=== PATIENT | female | born 1950 | race Caucasian/White ===

== ENCOUNTER 2024-08-24 08:36 | Emergency (ER) | payer MEDICARE, SELFPAY ==
[2024-08-24] VITALS (19 sets, daily range): BP systolic 171–182; BP diastolic 77–92; PULSE 62–88; TEMP 36.8; O2SAT 84–100; BMI 48.5
--- NOTE | 2024-08-24 09:20 | ED_ITS ---
HPI HPI - General Adult General Chief complaint: Nausea/Vomiting/Diarrhea Stated complaint: FLU LIKE SYMPTOMS Time Seen by Provider: 08/24/24 08:42 Source: patient Mode of arrival: Wheelchair Limitations: no limitations History of Present Illness HPI narrative: Patient has been ill for the last 3 days with cough, nausea, dry heaving and weakness. She has had bodyaches. She tested positive for influenza at urgent care yesterday. 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 She requires assistance with moving around. Related Data Home Medications ?Medication ?Instructions ?Recorded ?Confirmed atorvastatin 10 mg tablet 10 mg PO DAILY 08/24/24 08/24/24 baclofen 10 mg tablet 10 mg PO BEDTIME 08/24/24 08/24/24 cholecalciferol (vitamin D3) 125 125 mcg PO DAILY 08/24/24 08/24/24 mcg (5,000 unit) capsule esomeprazole magnesium 20 mg 20 mg PO Q24H 08/24/24 08/24/24 capsule,delayed release hydrochlorothiazide 25 mg tablet 25 mg PO DAILY 08/24/24 08/24/24 losartan 25 mg tablet 25 mg PO DAILY 08/24/24 08/24/24 montelukast 10 mg tablet 10 mg PO DAILY 08/24/24 08/24/24 nortriptyline 25 mg capsule 25 mg PO BEDTIME 08/24/24 08/24/24 oxcarbazepine 150 mg tablet 150 mg PO BID 08/24/24 08/24/24 pregabalin 100 mg capsule 100 mg PO DAILY 08/24/24 08/24/24 thiamine HCl (vitamin B1) 100 mg 100 mg PO DAILY 08/24/24 08/24/24 tablet tramadol 50 mg tablet 50 mg PO Q6H PRN pain 08/24/24 08/24/24 Previous Rx's ?Medication ?Instructions ?Recorded albuterol sulfate 90 mcg/actuation 2 inh inhalation Q6H PRN shortness 08/24/24 aerosol inhaler of breath or wheezing #8.5 grams cefuroxime axetil 250 mg tablet 250 mg PO BID 10 days #20 tabs 08/24/24 doxycycline hyclate 100 mg capsule 100 mg PO BID 10 days #20 caps 08/24/24 Allergies Allergy/AdvReac Type Severity Reaction Status Date / Time duloxetine AdvReac Mild Nausea Verified 08/24/24 08:56 fluoxetine AdvReac Mild jittery Verified 08/24/24 08:56 hydrocodone AdvReac Mild Rash Verified 08/24/24 08:56 lisinopril AdvReac Mild Cough Verified 08/24/24 08:56 nabumetone AdvReac Mild itching Verified 08/24/24 08:56 Sulfa (Sulfonamide AdvReac Mild Rash Verified 08/24/24 08:56 Antibiotics) Opioid HPI Opioid Management Most Recent Opioid Data: Last Pain Scale 0 08/24/24 12:16 08/24/24 Last ED Pain Assessment 08/24/24 12:16 Last MAR Pain Assessment 08/24/24 11:37 Review of Systems ROS Narrative All other systems are reviewed and are negative other than what is mentioned in the HPI. Exam Narrative Exam Narrative: Patient does not appear in acute distress. Vitals are stable with no temperature elevation noted oxygen saturation is 98% on room air. Her blood pressure is slightly elevated 177/86. HEENT exam is normal to inspection. Neck supple. Lung sounds are clear to auscultation bilaterally. Heart has regular rate and rhythm. Abdomen protuberant, soft nontender. There is no fluid wave. Extremities warm and dry. Patient is of short stature. Constitutional Vital Signs, click to edit/add: Last Vital Signs Temp 98.3 F 08/24/24 08:50 Pulse 81 08/24/24 12:42 Resp 17 08/24/24 12:10 BP 182/77 H 08/24/24 12:01 Pulse Ox 98 08/24/24 13:18 O2 Del Method Room Air 08/24/24 13:18 O2 Flow Rate 2 08/24/24 12:42 Course Vital Signs Vital signs: Vital Signs Temperature 98.3 F 08/24/24 08:50 Pulse Rate 73 08/24/24 08:50 Respiratory Rate 18 08/24/24 08:50 Blood Pressure 177/86 H 08/24/24 08:50 Pulse Oximetry 98 08/24/24 08:50 Oxygen Delivery Method Room Air 08/24/24 08:50 Temperature 98.3 F 08/24/24 08:50 Pulse Rate 81 08/24/24 12:42 Respiratory Rate 17 08/24/24 12:10 Blood Pressure 182/77 H 08/24/24 12:01 Pulse Oximetry 98 08/24/24 13:18 Oxygen Delivery Method Room Air 08/24/24 13:18 Oxygen Delivery Flow Rate 2 08/24/24 12:42 Medical Decision Making MDM Narrative Medical decision making narrative: Patient's EKG is interpreted by me. Shows sinus rhythm with a rate of 78 bpm. There is right bundle branch block pattern and left axis deviation and no acute ST elevation. Patient presents with a chief complaint of shortness of breath and nausea. She was diagnosed with influenza yesterday. Chest x-ray questioned pneumonia versus failure. She had elevated BNP of 1090. She tested negative for COVID. CT scan of the chest ruled out pulmonary embolism and showed bilateral patchy pneumonia worse on the left. Patient was treated with I we Rocephin and oral doxycycline in the ED and is placed on Ceftin and doxycycline for 10 days at home. Early f ollow-up with PCP is advised and she is to return for worsening symptoms. Lab Data Labs: Lab Results 08/24/24 08/24/24 Range/Units 09:18 12:49 WBC 7.8 (4.0-11.0) 10^3/uL RBC 4.59 (4.20-5.40) 10^6/uL Hgb 13.8 (12.0-16.0) g/dL Hct 40.2 (36.0-48.0) % MCV 87.6 (81.0-99.0) fL MCH 30.1 (26.7-34.0) pg MCHC 34.3 (29.9-35.2) g/dL RDW 14.1 (11.0-15.0) % Plt Count 225 (150-450) 10^3/uL MPV 8.9 L (9.5-13.5) fL Neut % (Auto) 73.6 (43.0-75.0) % Lymph % (Auto) 14.1 L (20.5-60.0) % Cooper % (Auto) 12.2 H (1.7-12.0) % Eos % (Auto) 0.0 L (0.9-7.0) % Baso % (Auto) 0.0 L (0.2-2.0) % Neut # (Auto) 5.7 (1.4-6.5) 10^3/uL Lymph # (Auto) 1.1 L (1.2-3.8) 10^3/uL Cooper # (Auto) 1.0 H (0.3-0.8) 10^3/uL Eos # (Auto) 0.0 (0.0-0.7) 10^3/uL Baso # (Auto) 0.0 (0.0-0.1) 10^3/uL Abs Immat Gran (auto) 0.01 (0.00-0.03) 10^3/uL Imm/Tot Granulo (auto) 0.1 (0.0-0.5) % D-Dimer 0.25 (<=0.59) mg/L FEU Sodium 135 L (136-145) mmol/L Potassium 3.2 L (3.5-5.1) mmol/L Chloride 97 L (98-107) mmol/L Carbon Dioxide 32.1 H (21.0-32.0) mmol/L Anion Gap 9.1 BUN 20.0 H (7.0-18.0) mg/dL Creatinine 0.71 (0.55-1.02) mg/dL Est GFR ( Amer) >60 (>=60 mL/min/1.73m^2) Est GFR (Non-Af Amer) >60 (>=60 mL/min/1.73m^2) BUN/Creatinine Ratio 28.2 Glucose 120 H (74-106) mg/dL Calcium 9.3 (8.5-10.1) mg/dL Total Bilirubin 0.4 (0.2-1.0) mg/dL AST 20 (15-37) U/L ALT 21 (14-59) U/L Alkaline Phosphatase 93 (46-116) U/L Troponin I High Sens 27.2 (4.0-51.3) pg/mL NT-Pro-B Natriuret Pep 1090.0 H (<=900.0) pg/mL Total Protein 7.6 (6.4-8.2) g/dL Albumin 3.6 (3.4-5.0) g/dL Globulin 4.0 g/dL Albumin/Globulin Ratio 0.9 SARS-CoV-2 Ag (CV2AG) Negative (NEGATIVE) Discharge Plan Discharge Chief Complaint: Nausea/Vomiting/Diarrhea Clinical Impression: Pneumonia Qualifiers: Pneumonia type: due to unspecified organism Laterality: bilateral Lung location: lower lobe of lung Qualified Code(s): J18.9 - Pneumonia, unspecified organism Patient Disposition: Home, Self-Care Time of Disposition Decision: 13:06 Condition: Good Mode of Transportation: Private Vehicle Prescriptions / Home Meds: New albuterol sulfate 90 mcg/actuation HFA aerosol inhaler 2 inh inhalation Q6H PRN (Reason: shortness of breath or wheezing) Qty: 8.5 0RF doxycycline hyclate 100 mg capsule 100 mg PO BID 10 Days Qty: 20 0RF cefuroxime axetil 250 mg tablet 250 mg PO BID 10 Days Qty: 20 0RF No Action atorvastatin 10 mg tablet 10 mg PO DAILY baclofen 10 mg tablet 10 mg PO BEDTIME cholecalciferol (vitamin D3) 125 mcg (5,000 unit) capsule 125 mcg PO DAILY esomeprazole magnesium 20 mg capsule,delayed release(DR/EC) 20 mg PO Q24H hydrochlorothiazide 25 mg tablet 25 mg PO DAILY losartan 25 mg tablet 25 mg PO DAILY montelukast 10 mg tablet 10 mg PO DAILY nortriptyline 25 mg capsule 25 mg PO BEDTIME oxcarbazepine 150 mg tablet 150 mg PO BID pregabalin 100 mg capsule 100 mg PO DAILY tramadol 50 mg tablet 50 mg PO Q6H PRN (Reason: pain) thiamine HCl (vitamin B1) 100 mg tablet 100 mg PO DAILY Print Language: Greenlandic Instructions: Community Acquired Pneumonia (DC) Referrals: JOSEPH KIM [Primary Care Provider] - 1 week Discharge Date/Time: 08/24/24 13:20
[2024-08-24] MEDS: 0.9 % SODIUM CHLORIDE 1,000 ML 1000 ML IV (09:23)
[2024-08-24] MEDS: ONDANSETRON PF 4 MG/2 ML VIAL IV (09:23)
[2024-08-24 09:34] LABS: Hematocrit 40.2 % (36.0-48.0); Hemoglobin 13.8 g/dL (12.0-16.0); Immature Granulocytes Abs Auto 0.01 10^3/uL (0.00-0.03); Immature Granulocytes Pct Auto 0.1 % (0.0-0.5); Lymphocytes Absolute Auto 1.1 10^3/uL (1.2-3.8); Lymphocytes Percent Auto 14.1 % (20.5-60.0); Mean Corpuscular HGB Conc 34.3 g/dL (29.9-35.2); Mean Corpuscular Hemoglobin 30.1 pg (26.7-34.0); Mean Corpuscular Volume 87.6 fL (81.0-99.0); Mean Platelet Volume 8.9 fL (9.5-13.5); Monocytes Percent Auto 12.2 % (1.7-12.0); Neutrophils Absolute Auto 5.7 10^3/uL (1.4-6.5); Neutrophils Percent Auto 73.6 % (43.0-75.0); Platelet Count 225 10^3/uL (150-450); Red Blood Count 4.59 10^6/uL (4.20-5.40); Red Cell Distribution Width 14.1 % (11.0-15.0); White Blood Count 7.8 10^3/uL (4.0-11.0)
[2024-08-24 10:02] LABS: Alanine Aminotransferase 21 U/L (14-59); Albumin Globulin Ratio 0.9; Albumin Level 3.6 g/dL (3.4-5.0); Alkaline Phosphatase 93 U/L (46-116); Anion Gap 9.1; Aspartate Amino Transferase 20 U/L (15-37); BUN Creatinine Ratio 28.2; Bilirubin Total 0.4 mg/dL (0.2-1.0); Calcium 9.3 mg/dL (8.5-10.1); Carbon Dioxide 32.1 mmol/L (21.0-32.0); Chloride 97 mmol/L (98-107); Estimated GFR (African America >60 (>=60 mL/min/1.73m^2); Estimated GFR (Non-African Ame >60 (>=60 mL/min/1.73m^2); Glucose 120 mg/dL (74-106); Potassium 3.2 mmol/L (3.5-5.1); Sodium 135 mmol/L (136-145); Total Protein 7.6 g/dL (6.4-8.2)
--- NOTE | 2024-08-24 10:14 | ECG_ITS ---
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 Measurements Intervals [place] Rate: 78 P: 44 [place]: 174 QRS: -42 QRSD: 152 T: -4 QT: 428 QTc: 461 Interpretive Statements 1100 Sinus rhythm 2450 Right bundle branch block 7200 Abnormal left axis deviation 9150 abnormal ECG Compared to ECG 05/27/2018 17:34:56 Right bundle-branch block now present Left-axis deviation now present Electronically Signed On 08-24-2024 13:16:08 EDT by ESME PULLIAM M.D.
[2024-08-24 10:44] LABS: D Dimer 0.25 mg/L FEU (<=0.59)
[2024-08-24 10:45] LABS: Troponin I High Sensitivity 27.2 pg/mL (4.0-51.3)
[2024-08-24] MEDS: FENTANYL CITRATE/PF 100 MCG/2 ML VIAL 25 MCG IV (11:37)
--- NOTE | 2024-08-24 11:57 | PC.NURSE ---
Pt recently given Fentanyl IV for pain -- SpO2 dropped to 84% on RA with good waveform. Placed on 2L NC, SpO2 improved to 100%.
[2024-08-24] MEDS: CEFTRIAXONE 1,000 MG in 0.9 % SODIUM CHLORIDE 50 ML 100 MG IV (12:43)
[2024-08-24] MEDS: DOXYCYCLINE MONOHYDRATE 100 MG CAPSULE PO (12:45)
[2024-08-24 13:08] LABS: Internal Control Within Normal Limits; SARS-CoV-2 Ag NEGATIVE (NEGATIVE)
== END 2024-08-24 13:20 | disposition home or self-care (01) ==
PROVIDERS: Emergency Provider Emergency Medicine; PCP Family Medicine
DX: J11.00 Influenza due to unidentified influenza virus with unspecified type of pneumonia (principal); R06.02 Shortness of breath; R11.0 Nausea; Z99.3 Dependence on wheelchair; R62.52 Short stature (child)
CPT/HCPCS: 36415; 71045; 71250; 80053; 83880; 84484; 85025; 85378; 87811; 93005; 94640; 96365; 96375; 99285; J0696; J2405; J3010

== ENCOUNTER 2024-08-26 10:25 | Inpatient (IN) | payer MEDICARE, SELFPAY ==
[2024-08-26] VITALS (15 sets, daily range): BP systolic 151–184; BP diastolic 71–95; PULSE 55–97; TEMP 36.6–36.9; O2SAT 90–100; BMI 48.5; BMI 46.7
--- OUTSIDE RECORDS SUMMARY | 2024-08-26 10:42 | XMS_ITS | CCD ---
Author Organization [facility] Care Team Providers Care Medical And Scientific Illustrator Name Role Phone ALYSSA TOMAS Admitting Unavailable ALYSSA TOMAS Primary Care Unavailable SHANELLE SWAN Consulting Unavailable AMADEO ARANDA Attending Unavailable AMADEO ARANDA Consulting Unavailable ALYSSA TOMAS Consulting Unavailable ENA DWYER Consulting Unavailable HEIDY GREEN Consulting Unavailable AGSIM TAPIA Consulting Unavailable LINDA PUCKETT Consulting Unavailable Shanelle Hernandez Consulting Unavailable Paxton Cuellar Unavailable Shun Rodgers Unavailable Radha Rajan CNP Unavailable LESLIE DEL CID Attending Unavailable RADHA RAJAN Referring Unavailable Yulia Moyer MD Primary Care Provider Radha Rajan NP Unavailable [phone] Yulia Moyer MD Primary Care Provider Yulia Moyer MD Primary Care Provider DOMINGO LAURENT Attending Unavailable RADHA RAJAN Attending Unavailable RADHA RAJAN A Attending Unavailable DOMINGO LAURENT Attending Unavailable CECILIA RAJANZABETH A Referring Unavailable DOMINGO LAURENT Attending Unavailable CECILIA RAJANZABETH A Attending Unavailable DOMINGO LAURENT Attending Unavailable CECILIA RAJANZABETH A Referring Unavailable DOMINGO LAURENT Attending Unavailable TYREE RAJANBETH A Attending Unavailable Allergies Allergy Classification Reported Allergen(s) Allergy Type Date of Onset Reaction(s) Facility (1 source) Sulfamethoxazole / Trimethoprim Drug Allergy [facility] (20 sources) FLUoxetine Drug Allergy 01-28-20 17 Other: See Comments [facility] (13 sources) Lisinopril Drug Allergy 11-28-19 22 Cough [facility] (12 sources) nabumetone Drug Allergy 11-28-[address] [facility] (20 sources) Sulfamethoxazole / Trimethoprim Drug Allergy 04-01-20 22 Rash [facility] (20 sources) DULoxetine Drug Allergy 04-01-20 GI Upset, GI intolerance [facility] (20 sources) Acetaminophen / HYDROcodone Drug Allergy 02-21-20 23 Other [facility] (20 sources) DULoxetine Drug Allergy 09-28-19 23 [facility] Work Phone: (20 sources) Lisinopril Allergy to substance 09-28-19 [facility] (20 sources) nabumetone Drug Allergy 09-28-19 [facility] (1 source) Sulfamethoxazole Drug Allergy 11-28-[address] [facility] (1 source) Trimethoprim Drug Allergy 11-28-19 [facility] Medications Current Medications Medication Drug Class(es) Dates Sig (Normalized) Sig (Original) atorvastatin 10 mg oral tablet (20 sources) HMG-CoA Reductase Inhibitor Start: 08-23-2024 take 1 tablet by mouth once daily Atorvastatin 10 mg tablet Active 10 MG PO Daily August 23, 2024 12:00am Start: 08-25-2023 End: 05-18-2024 take 1 tablet by mouth once daily atorvastatin (Lipitor) 10 MG tablet Indications: Mixed hyperlipidemia (CMS/HCC) Take 1 tablet (10 mg) by mouth 1 (one) time each day at the same time 90 tablet 2 05/18/2024 Active atorvastatin (Li pitor) 10 MG tablet 1 (one) time each day at the same time. 0 Active Comment on above: Take 10 mg by mouth once daily. baclofen 10 mg oral tablet (12 sources) gamma-Aminobutyric Acid-ergic Agonist Start: 08-23-2024 take 1 tablet by mouth once daily at bedtime Baclofen 10 mg tablet Active 10 MG PO Daily at bedtime August 23, 2024 12:00am Baclofen 10 MG ( Prior Auth: Rx Ref#:[id number]) Oral for 90 Active Calcium (2 sources) Phosphate Binder, Calcium take 1 tablet by mouth twice daily at mealtime Calcium 600 MG 1 tablet with meals Orally Twice a day Active calcium carbonate 1500 mg oral tablet (20 sources) calcium carbonat e 1500 (600 Ca) MG tablet every 12 (twelve) hours. Active take 1 tablet by mouth twice michelle ly calcium carbonate (CALCIUM 600) 600 mg calcium (1,500 mg) tab Take 600 mg by mouth twice daily. 0 Active take 1 tablet by steve th every twelve hours Calcium 600 MG 1 tablet with meals Orall y Twice a day Active Comment on above: Take 600 mg by mouth twice daily. Calcium Carbonate-Vit D3-Min (Calcium 600 + Minerals) 600 mg calcium- 200 unit tablet (1 source) Start: 08-24-19 take 1 tablet by mouth once Calcium Carbonate-Vit D3-Min (Calcium 600 + Minerals) 600 mg calcium- 200 unit tablet Active TAB PO August 23, 2024 12:00am cholecalciferol 0.125 mg oral capsule (20 sources) Vitamin D Start: 08-24-19 take 1 capsule by mouth once daily Cholecalciferol (Vitamin D3) 125 mcg (5,000 unit) capsule Active 125 MCG PO Daily August 23, 2024 12:00am cholecalciferol (D3-5) 5,000 Units tablet 1 (one) time each day at the same time. Active dexamethasone 2 mg oral tablet (5 sources) Corticosteroid Start: 08-23-2024 take 1 tablet by mouth once daily Dexamethasone 2 mg tablet Active 2 MG PO Daily August 23, 2024 12:00am Start: 05-12-2024 End: 05-12-2024 dexAMETHasone sod phos (Deca dron) injection 4 mg Start: 05-12-2024 End: 05-12-2024 4 mg (1 mL), Injection, Once , On Fri05/12/24 at 1530, For 1 dose Start: 03-18-2024 End: 03-17-2024 dexAMETHasone sod phos (Deca dron) injection 4 mg Start: 03-18-2024 End: 03-17-2024 4 mg (1 mL), Injection, Once , On Alicia 03/18/24 at 1630, For 1 dose esomeprazole 20 mg delayed release oral capsule (20 sources) Proton Pump Inhibitor Start: 07-02-2023 End: 07-01-2024 take 1 capsule by mouth before mealtime esomeprazole (NexIUM) [address] capsule Indications: Gastroesophageal reflux disease, unspecified whether esophagitis present TAKE 1 CAPSULE BY MOUTH IN THE MORNING BEFORE A MEAL DO NOT OPEN CAPSULE 90 capsule 3 12/01/2023 Active take 1 capsule by mouth once michelle ly esomeprazole (NEXIUM) 20 mg capsule Take 20 mg by mouth once daily. 0 Active Esomeprazole Mag nesium 40 MG (Prior Auth: Rx Ref#:[id number]) Oral for 90 Active Comment on above: Take 20 mg by mouth once daily. Esomeprazole Magnesium 20 mg capsule,delayed release(DR/EC) (1 source) Start: take 1 capsule by mouth once daily Esomeprazole Magnesium 20 mg capsule,delayed release(DR/EC) Active 20 MG PO Daily August 23, 2024 12:00am fexofenadine hydrochloride 180 mg oral tablet (20 sources) Histamine-1 Receptor Antagonist fexofenadine (Leah Allergy) 180 MG tablet 1 (one) time each day at the same time. Active Leah Active Comment on above: Take 180 mg by mouth once daily. furosemide 20 mg oral tablet (11 sources) Loop Diuretic Furosemide 20 MG (Prior Auth: Rx Ref#:[id number]) Oral for 30 Active gabapentin 300 mg oral capsule (11 sources) Anti-epileptic Agent Start: 03-27-2021 take 1 capsule by mouth three times daily Gabapentin 300 MG 1 capsule Orally three times daily for 30 day(s) Mar, Active gabapentin (NEUR ONTIN) 300 mg/6 mL (6 mL) oral solution Take 300 mg by mouth. 0 Active take 1 capsule by mouth twice da kaylin Gabapentin 300 MG 1 capsule Orally twice daily for 90 days Active Comment on above: Take 300 mg by mouth . glucosamine 750 mg oral tablet (11 sources) Glucosamine 750 MG Orally Active hydroCHLOROthiazide 25 mg oral tablet (20 sources) Thiazide Diuretic Start: 2024 take 1 tablet by mouth once daily in the morning Hydrochlorothiazide 25 mg tablet Active 25 MG PO Every morning August 23, 2024 12:00am Start: 04-07-2023 End: 03-11-2024 take 1 tablet by mouth in the morning hydroCHLOROthiazide (HYDRODiuril) 25 MG tablet Indications: Hypertension, unspecified type (CMS/HCC) TAKE 1 TABLET BY MOUTH IN THE MORNING 90 tablet 3 03/11/2024 Active take 1 tablet by steve th once daily hydroCHLOROthiazide (HYDRODIURIL, ESIDRIX) 25 mg tablet Take 25 mg by mouth once daily. 0 Active Comment on above: Take 25 mg by mouth once daily. losartan potassium 25 mg oral tablet (20 sources) Angiotensin 2 Receptor Paola Start: 08-23-2024 take 1 tablet by mouth once daily Losartan 25 mg tablet Active 25 MG PO Daily August 23, 2024 12:00am Start: 12-24-2022 End: 12-19-2023 take 1 tablet by mouth once daily losartan (Cozaar) 25 MG tablet Indications: Hypertension, unspecified type (CMS/HCC) TAKE 1 TABLET BY MOUTH DAILY AT THE SAME TIME EACH DAY 90 tablet 3 12/01/2023 Active take 1 tablet by steve th once daily losartan (COZAAR) 25 mg tablet Take 25 mg by mouth once daily. 0 Active Comment on above: Take 25 mg by mouth once daily. montelukast 10 mg oral tablet (20 sources) Leukotriene Receptor Antagonist Start: take 1 tablet by mouth once daily Montelukast 10 mg tablet Active 10 MG PO Daily August 23, 2024 12:00am Start: 04-07-2023 End: 04-15-2024 take 1 tablet by mouth in the morning montelukast (Singulair) 10 MG tablet Indications: Rhinitis, unspecified type TAKE 1 TABLET BY MOUTH IN THE MORNING 90 tablet 3 04/15/2024 Active take 1 tablet by steve th once daily at bedtime montelukast (SINGULAIR) 10 mg tablet Take 10 mg by mouth daily at bedtime. 0 Active Comment on above: Take 10 mg by mouth daily at bedtime. Multiple Vitamins-Minerals (Multivitamin Women) tablet (20 sources) Multiple Vitamin s-Minerals (Multivitamin Women) tablet 1 (one) time each day at the same time. Active Multiple Vitamin s-Minerals (Multivitamin Women) tablet 1 (one) time each day at the same time. 0 Active Multivitamin tablet (1 source) Start: 08-23-2024 take 1 tablet by mouth once daily Multivitamin tablet Active 1 TAB PO Daily August 23, 2024 12:00am Multivitamins - (11 sources) Start: 07-06-2017 Multivitamins - Orally Jul, Active nortriptyline 10 mg oral capsule (20 sources) Tricyclic Antidepressant Start: 08-23-2024 take 1 capsule by mouth once daily Nortriptyline 10 mg capsule Active 25 MG PO Daily August 23, 2024 12:00am Start: 03-18-2024 End: 04-17-2024 take 1 capsule by mouth at bedtime nortriptyline (Pamelor) 25 MG capsule Indications: Carpal tunnel syndrome of left wrist TAKE 1 CAPSULE BY MOUTH AT BEDTIME. 90 capsule 3 04/12/2024 Active Start: 02-23-2024 End: 03-24-2024 take 2 capsules by mouth at bedtime nortriptyline (Pamelor) 10 MG capsule Indications: Bilateral carpal tunnel syndrome Take 2 capsules (20 mg) by mouth at bedtime 60 capsule 11 02/23/2024 03/17/2024 Discontinued Start: 02-06-2024 take 1 capsule by mo uth at bedtime nortriptyline (Pamelor) 10 MG capsule Indications: Bilateral carpal tunnel syndrome TAKE 1 CAPSULE BY MOUTH AT BEDTIME 90 capsule 3 02/06/2024 Active Start: 01-14-2024 End: 01-13-2025 take 1 capsule by mouth at bedtime nortriptyline (Pamelor) 10 MG capsule Indications: Bilateral carpal tunnel syndrome TAKE 1 CAPSULE BY MOUTH AT BEDTIME 90 capsule 3 02/06/2024 Active OXcarbazepine 150 mg oral tablet (20 sources) Anti-epileptic Agent Start: 12-02-2023 End: 12-01-2024 take 1 tablet by mouth once daily Oxcarbazepine 150 mg tablet Active 150 MG PO Daily August 23, 2024 12:00am pregabalin 100 mg oral capsule (20 sources) Start: 11-26-2023 End: 09-26-2024 take 1 capsule by mouth once daily Pregabalin 100 mg capsule Active 100 MG PO Daily August 23, 2024 12:00am Start: 05-06-2023 End: 09-02-2023 take 1 capsule by mouth in the morning pregabalin (Lyrica) 100 MG capsule Indications: Paresthesia of skin Take 1 capsule (100 mg) by mouth in the morning for 60 doses. 30 capsule 1 07/04/2023 09/02/2023 Active Start: 11-27-2021 take 1 capsule by mo uth every twelve hours Lyrica 75 MG 1 capsule Orally Twice a day for 30 days 28 Adam, 2022 Active thiamine 100 mg oral tablet (9 sources) Start: 05-13-2024 End: 05-13-2025 take 1 tablet by mouth once daily Thiamine Hcl (Vitamin B1) 100 mg tablet Active 100 MG PO Daily August 23, 2024 12:00am traMADol hydrochloride 50 mg oral tablet (20 sources) Opioid Agonist Start: 08-23-2024 take 1 tablet by mouth once daily Tramadol 50 mg tablet Active 50 MG PO Daily August 23, 2024 12:00am Start: 01-16-2024 End: 08-18-2024 take 1 tablet by mouth every six hours for pain traMADol (Ultram) 50 MG tablet Indications: Other chronic pain , Other spondylosis with radiculopathy, lumbar region Take 1 tablet (50 mg) by mouth every 6 (six) hours if needed for severe pain 120 tablet 07/19/2024 08/18/2024 Active Start: 06-23-2023 End: 07-23-2023 take 1 tablet by mouth every six hours for pain traMADol (Ultram) 50 MG tablet Indications: Other spondylosis with radiculopathy, lumbar region , Other chronic pain Take 1 tablet (50 mg) by mouth every 6 (six) hours if needed for severe pain 120 tablet 0 06/23/2023 07/23/2023 Active Start: 03-15-2021 take 1 tablet by steve th twice daily as needed traMADol HCl 50 MG 1 tablet as needed Orally up to twice a day for 30 days Mar, Active take 1 tablet by steve th every six hours as needed traMADol (ULTRAM) 50 mg tablet Take 50 mg by mouth every 6 hours as needed for pain. 0 Active Comment on above: Take 50 mg by mouth every 6 hours as needed for pain. vitamin b12 5 mg oral capsule (20 sources) Vitamin B12 Start: 08-23-2024 take 1 capsule by mouth once daily Cyanocobalamin (Vitamin B-12) 5,000 mcg capsule Active 5000 MCG PO Daily August 23, 2024 12:00am take 1 tablet by mouth once bonny y Cyanocobalamin (VITAMIN B-12 PO) Take 1 tablet by mouth 1 (one) time each day. Active take 1 tablet by mouth once bonny y Cyanocobalamin (VITAMIN B-12 PO) Take 1 tablet by mouth 1 (one) time each day. 0 Active Vitamin D 2000 UNIT (11 sources) take 1 tablet by steve th once daily Vitamin D 2000 UNIT 1 tablet Orally Once a day Active Completed/Discontinued Medications Medication Drug Class(es) Dates Sig (Normalized) Sig (Original) bupivacaine hydrochloride 5 mg/ml injectable solution (4 sources) Amide Local Anesthetic Start: 05-12-2024 End: 05-12-2024 bupivacaine (Marcaine) 0.5 % injection 5 mg Start: 05-12-2024 End: 05-12-2024 5 mg (1 mL), Injection, Once , On Fri05/12/24 at 1530, For 1 dose Start: 03-18-2024 End: 03-17-2024 bupivacaine (Marcaine) 0.5 % injection 5 mg Start: 03-18-2024 End: 03-17-2024 5 mg (1 mL), Injection, Once , On Fri03/18/24 at 1630, For 1 dose cholecalciferol, vitamin D3, (VITAMIN D3 ORAL) (1 source) cholecalciferol, vitamin D3, (VITAMIN D3 ORAL) Take by mouth. 0 Active Comment on above: Take by mouth. mecobalamin (1 source) take 1 capsule by mouth once daily mecobalamin (B12 ACTIVE ORAL) Take 1 capsule by mouth once daily. 0 Active Comment on above: Take 1 capsule by mo [facility] once daily. Nzzbtcaophwsz-Kmcexmpw-Jjc ein (MULTIVITAMIN 50 PLUS) tab (1 source) Multivitamins-Mi nerals-Elizabeth tein (MULTIVITAMIN 50 PLUS) tab Take 1 tablet by mouth once daily. 0 Active Comment on above: Take 1 tablet by steve th once daily. Problems Active Problems Problem Classification Problem Date Documented Date Episodic/Chronic Abdominal hernia (1 source) Umbilical hernia without obstruction or gangrene; Translations: [UMBILICAL HERNIA W/O OBST/GANGRENE] Onset: 0 Episodic Biliary tract disease (20 sources) Biliary dyskinesia; Translations: [Other specified diseases of gallbladder] Onset: 9 Resolved: 4 12-19-2022 Episodic Chronic obstructive pulmonary disease and bronchiectasis (20 sources) Simple chronic bronchitis; Translations: [Simple chronic bronchitis] Onset: 8 12-19-2022 Chronic Diabetes mellitus without complication (1 source) Prediabetes; Translations: [PREDIABETES] Onset: 0 Diseases of white blood cells (20 sources) Leukocytosis; Translations: [Elevated white blood cell count, unspecified] Onset: 3 09-27-2022 Chronic Disorders of lipid metabolism (20 sources) Hyperlipidemia; Translations: [Hyperlipidemia, unspecified] Onset: 8 09-27-2022 Chronic Disorders of lipid metabolism (1 source) Pure hypercholesterolemia, unspecified; Translations: [PURE HYPERCHOLESTEROLEMIA UNSPEC] Onset: 0 Diverticulosis and diverticulitis (20 sources) Diverticular disease; Translations: [Diverticulosis of intestine, part unspecified, without perforation or abscess without bleeding] Onset: 3 09-27-2022 Chronic Esophageal disorders (20 sources) Gastro-esophageal reflux disease without esophagitis; Translations: [Gastroesophageal reflux disease] Onset: 0 09-27-2022 Chronic Essential hypertension (20 sources) Essential (primary) hypertension; Translations: [Hypertensive disorder] Onset: 8 09-27-2022 Chronic Fluid and electrolyte disorders (2 sources) Hypo-osmolality and hyponatremia; Translations: [Hypokalemia] Onset: 0 Episodic Genitourinary congenital anomalies (1 source) Congenital uterine anomaly; 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] 08-23-2024 Chronic Heart valve disorders (20 sources) Aortic valve stenosis; Translations: [Nonrheumatic aortic (valve) stenosis] Onset: 3 09-27-2022 Chronic Immunizations and screening for infectious disease (3 sources) Contact with and (suspected) exposure to other viral communicable diseases; Translations: [Patient encounter status] Onset: 0 2024 Episodic Mood disorders (20 sources) Recurrent major depressive episodes, mild ; Translations: [Major depressive disorder, recurrent, mild] Onset: 8 Resolved: 3 12-19-2022 Chronic Nausea and vomiting (1 source) Nausea with vomiting, unspecified; Translations: [Nausea with vomiting] 08-23-2024 Episodic Nausea and vomiting (2 sources) Vomiting, unspecified; Translations: [VOMITING UNSPECIFIED] Onset: 0 Nutritional deficiencies (1 source) Vitamin D deficiency; Translations: [Vitamin D deficiency, unspecified] 08-23-2024 Chronic Osteoarthritis (20 sources) Localized, primary osteoarthritis of the shoulder region; Translations: [Primary osteoarthritis, unspecified shoulder] Onset: 2 12-19-2022 Chronic Osteoporosis (20 sources) Senile osteoporosis; Translations: [Age-related osteoporosis without current pathological fracture] Onset: 9 12-19-2022 Chronic Other acquired deformities (7 sources) Scoliosis of lumbar spine; Translations: [Other forms of scoliosis, lumbar region] Chronic Other acquired deformities (1 source) Other forms of scoliosis, lumbar region Onset: 1 Resolved: 1 Chronic Other acquired deformities (20 sources) Scoliosis deformity of spine; Translations: [Scoliosis, unspecified] Onset: 3 09-27-2022 Chronic Other acquired deformities (1 source) Other secondary scoliosis, lumbar region; Translations: [Scoliosis of lumbar region due to degenerative disease of spine in adult] 08-23-2024 Chronic Other aftercare (1 source) Other predatory animal exterminator (current) drug therapy; Translations: [OTH [facility] CURRENT DRUG THERAPY] Onset: 0 Episodic Other and ill-defined heart disease (20 sources) Ventricular hypertrophy ; Translations: [Cardiomegaly] Onset: 3 09-27-2022 Chronic Other and ill-defined heart disease (20 sources) Cardiomegaly; Translations: [Cardiomegaly] Onset: 2 12-19-2022 Chronic Other bone disease and musculoskeletal deformities (20 sources) Osteopenia; Translations: [Other specified disorders of bone density and structure, unspecified site] Onset: 3 09-27-2022 Episodic Other connective tissue disease (1 source) Presence of right artificial knee joint; Translations: [PRESENCE RT ARTIFICIAL KNEE JOINT] Onset: 0 Chronic Other connective tissue disease (11 sources) Trochanteric bursitis; Translations: [Trochanteric bursitis, unspecified hip] Episodic Other connective tissue disease (1 source) Bursitis of hip; Translations: [Trochanteric bursitis, unspecified hip] 08-23-2024 Episodic Other lower respiratory disease (20 sources) Fibrosis of lung; Translations: [Pulmonary fibrosis, unspecified] Onset: 1 12-19-2022 Chronic Other nervous system disorders (7 sources) Other chronic pain; Translations: [OTHER CHRONIC PAIN] Onset: 0 Resolved: 2 Chronic Other nervous system disorders (20 sources) Chronic pain; Translations: [Other chronic pain] Onset: 3 09-27-2022 Chronic Other nervous system disorders (20 sources) Difficulty walking; Translations: [Difficulty in walking, not elsewhere classified] Onset: 3 09-27-2022 Chronic Other nervous system disorders (20 sources) Carpal tunnel syndrome of left wrist; Translations: [Carpal tunnel syndrome, left upper limb] Onset: 4 11-10-2023 Chronic Other nervous system disorders (20 sources) Bilateral carpal tunnel syndrome; Translations: [Carpal tunnel syndrome, bilateral upper limbs] Onset: 4 01-15-2024 Chronic Other non-traumatic joint disorders (1 source) Pain in right hip; Translations: [PAIN IN RIGHT HIP] Onset: 0 Episodic Other non-traumatic joint disorders (8 sources) Pain in right hip joint; Translations: [Pain in right hip] Onset: 3 09-27-2022 Episodic Other nutritional; endocrine; and metabolic disorders (1 source) Body mass index (BMI) 45.0-49.9, adult; Translations: [BODY MASS INDEX BMI 45.0-49.9 ADULT] Onset: 0 Chronic Other nutritional; endocrine; and metabolic disorders (1 source) Morbid (severe) obesity due to excess calories; Translations: [MORBID SEVERE OBES D/T EXCESS JASMYN] Onset: 0 Chronic Other nutritional; endocrine; and metabolic disorders (20 sources) Morbid obesity; Translations: [Morbid (severe) obesity due to excess calories] Onset: 3 09-27-2022 Chronic Other nutritional; endocrine; and metabolic disorders (20 sources) Body mass index 40+ - severely obese; Translations: [Body mass index (BMI) 45.0-49.9, adult] Onset: 9 12-19-2022 Chronic Other screening for suspected conditions (not mental disorders or infectious disease) (2 sources) Patient encounter status; Translations: [Encounter for screening mammogram for malignant neoplasm of breast] 2024 Episodic Other upper respiratory disease (20 sources) Rhinitis; Translations: [Chronic rhinitis] Onset: 3 09-27-2022 Chronic Other upper respiratory disease (1 source) Seasonal allergic rhinitis; Translations: [Other seasonal allergic rhinitis] 08-23-2024 Chronic Peripheral and visceral atherosclerosis (20 sources) Atherosclerosis of aorta; Translations: [Atherosclerosis of aorta] Onset: 1 12-19-2022 Chronic Pneumonia (except that caused by tuberculosis or sexually transmitted disease) (1 source) Pneumonia, unspecified organism; Translations: [PNEUMONIA UNSPECIFIED ORGANISM] Onset: 0 Episodic Prolapse of female genital organs (20 sources) Uterovaginal prolapse; Translations: [Uterovaginal prolapse, unspecified] Onset: 8 12-19-2022 Chronic Residual codes; unclassified (1 source) Acquired absence of other specified parts of digestive tract; Translations: [ACQ ABSENCE OTH PART DIGESTV TRACT] Onset: 0 Episodic Screening and history of mental health and substance abuse codes (1 source) Personal history of nicotine dependence; Translations: [PERSONAL HISTORY OF NICOTINE DEPEND] Onset: 0 Episodic Spondylosis; intervertebral disc disorders; other back problems (20 sources) Lumbosacral spondylosis without myelopathy; Translations: [Other spondylosis with radiculopathy, lumbar region] Onset: 1 Resolved: 2 Chronic Spondylosis; intervertebral disc disorders; other back problems (8 sources) Spinal stenosis, site unspecified; Translations: [Spinal stenosis, lumbar region without neurogenic claudication] Onset: 1 Resolved: 2 Episodic Substance-related disorders (12 sources) Continuous opioid dependence; Translations: [Opioid use, unspecified, uncomplicated] 08-23-2024 Episodic Unclassified (1 source) CYCLICL VOMTNG SYN UNRELTD MIGRAINE; Translations: [CYCLICL VOMTNG SYN UNRELTD MIGRAINE] Onset: 0 Past or Other Problems Problem Classification Problem Date Documented Date Episodic/Chronic Calculus of urinary tract (10 sources) Kidney stone; Translations: [Calculus of kidney] Onset: 09-27-2022 09-27-2022 Episodic Diabetes mellitus with complications (20 sources) Hyperglycemia due to type 2 diabetes mellitus; Translations: [Type 2 diabetes mellitus with hyperglycemia] Onset: 02-06-2018 Resolved: 12-24-2022 12-24-2022 Chronic Diabetes mellitus without complication (20 sources) Impaired fasting glycemia; Translations: [Impaired fasting glucose] Onset: 09-27-2022 09-27-2022 Episodic Mood disorders (20 sources) Mood disorders Onset: 01-31-2023 01-31-2023 Other circulatory disease (20 sources) History of cerebrovascular accident without residual deficits; Translations: [Personal history of transient ischemic attack (TIA), and cerebral infarction without residual deficits] Onset: 04-13-2021 Resolved: 12-24-2022 12-24-2022 Episodic Other nervous system disorders (20 sources) Paresthesia; Translations: [Paresthesia of skin] Onset: 09-27-2022 07-04-2023 Episodic Other nervous system disorders (20 sources) Abnormal gait; Translations: [Unspecified abnormalities of gait and mobility] Onset: 09-27-2022 09-27-2022 Episodic Other nervous system disorders (20 sources) Impaired cognition; Translations: [Other symptoms and signs involving cognitive functions and awareness] Onset: 04-13-2021 Resolved: 12-24-2022 12-24-2022 Episodic Other nervous system disorders (20 sources) Numbness of hand; Translations: [Anesthesia of skin] Onset: 11-10-2023 11-10-2023 Episodic Other non-traumatic joint disorders (20 sources) Pain in left knee; Translations: [Pain in joint, lower leg] Onset: 09-27-2022 09-27-2022 Episodic Other non-traumatic joint disorders (18 sources) Hip pain; Translations: [Pain in right hip] Onset: 09-27-2022 09-27-2022 Episodic Residual codes; unclassified (20 sources) Illness, unspecified; Translations: [Other ill-defined conditions] Onset: 09-27-2022 09-27-2022 Episodic Skin and subcutaneous tissue infections (20 sources) Cellulitis of umbilicus ; Translations: [Cellulitis of umbilicus] Onset: 07-21-2018 Resolved: 01-31-2023 01-31-2023 Episodic Results Test Name Value Interpretation Reference Range Facility BI MAMMOGRAM SCREENING TOMOS DEUCE PRICEon 04-14-2024 BI MAMMOGRAM SCREENING TOMOSYNTHESIS BILATERAL This is a summary report. The complete report is available in the patient's medical record. If you cannot access the medical record, please contact the sending organization for a detailed fax or copy. Examination: BI MAMMOGRAM SCREENING TOMOSYNTHESIS BILATERAL Clinical History: screening Technique: Screening digital mammography study of both breasts was performed with 2-D and 3-D tomosynthesis imaging. Study was compared to the prior exam dated 03/20/2023. Findings: There is no evidence of interval dominant spiculated mass, grouped microcalcifications, or skin thickening which would be suggestive of malignancy. Mild scattered benign-appearing calcifications noted bilaterally. Benign-appearing nodular density on the right posterolaterally similar to the prior study as well as prior reviewed study dated 10/12/2021. Axillary lymph nodes are noted bilaterally. IMPRESSION: Impression: No specific evidence of malignancy seen in either breast. BIRADS 2 - Benign DENSITY: The breasts are almost entirely fatty FOLLOW-UP: Routine Screening Mamm ELECTRONICALLY SIGNED BY: Jamil Qiu M.D. Normal Not Available CNOVon 04-01-2022 CNOV Office Visit (SPNMAV) SYLVIA MILLER ([id number]) 1950 F Date Time Provider Department 04/01/22 1:00 PM LESLIE DEL CID During your visit today, we recorded the following information about you: Weight Height 108.9 kg 1.524 m Leslie Del Cid DO 04/01/2022 2:58 PM Signed [facility] Low Back Pain - Chronic (> 12 weeks) Initial Exam SUBJECTIVE HISTORY OF PRESENT ILLNESS: Sylvia Miller is a 72 year old female who presents with a chief complaint of low back pain and is seen in consultation requested by Dr. Radha Rajan for an opinion regarding low back pain with radiation down back of legs, left side worse than right. Intermittent in nature. Worse when walking/standing. States has had for years but has gotten worse over past 1.5 years. My final recommendations will be communicated back to the requesting physician by way of shared medical record or letter via US mail. Other Issues Addressed at the Visit Today: None. Precipitating Event: None PAIN EVALUATION 04/01/2022 1257 Pain Level: 6 Pain Location: Back-Lower Description: Aching;Sharp;Radiati ng Duration Amount of Time: 1.5 Duration Units: Years Frequency: Intermittent Intervention/Comfort measure: Medication;Repositio n;Heat;Cold Pain Radiation: low back pain with radiation down back of legs, left leg to knee, right leg to ankle PREVIOUS TREATMENTS IN THE LAST SIX MONTHS Active conservative therapy in the last six months (see below) 1. Physical therapy: No 2. Home exercise program after PT:No 3. A physician supervised home exercise program (HEP): No 4. Windmill Mechanic: No 5. What are your limitations: Standing, walking Passive conservative therapy in the last six months (see below) 1. NSAIDS: None 2. Prescription pain medication: Gabapentin 300 mg - last dose this morning, Tramadol - last dose this AM 3. Acupuncture: No 4. Tens unit: No Aggravating Factors: Standing, Walking Alleviating Factors: Medications, Heat application, Cold application, Sitting Prior Therapy: Tramadol, ice, heat, gabapentin, TFESI X 3 in [facility] Litigation: No Workers' Compensation: No YELLOW AND BLUE FLAGS No-Neg Attitude; Back Pain is Disabling No-Avoiding Activity (for Fear of Pain) No-Depression or Anxiety Disorders No-Social Problems No-Substance Use Disorder No-Job Dissatisfaction No-Financial Disincentives Patient Entered Questionnaires Spine Questions 03/28/2022 Pain Location: Lower back Pain Duration: 1 to 5 years Pain over last 6 months: Every day or nearly every day in the past 6 months Symptoms from neck/cervical spine: No Employment Status: Retired Involved in law suit/legal claim: No Spine Red Flags 03/28/2022 Any type of cancer: No Unexplained fever: No Bowel or bladder disfunction: No Unintentional weight loss: No Osteoporosis: No PROMIS Score Percentiles Physical Health 03/28/2022 Physical Function Percentile 0 Sleep Percentile 12 Fatigue Percentile 14 Pain Interference Percentile 1 PROMIS SOCIAL ROLE SCORE 03/28/2022 Social Role Satisfaction Percentile 10 PROMIS Global Health Scale 03/28/2022 Physical Health Percentile 10 Mental Health Percentile 13 Percentiles provide an indication of how the patient's score ranks in relation to the general population. Higher percentile rankings indicate better function/quality of life. 50th percentile is the average of the general population and indicates half of respondents had a worse score. Depression Screening: PHQ-9 03/28/2022 Score 5 PHQ-9 Self Harm 03/28/2022 Question 9 Not at all PHQ-9 Self-Harm (Item 9) response options: 0 Not at all 1 Several days 2 More than half the days 3 Nearly every day PHQ-9 Levels: 0-4 No - mild depression 5-9 Mild depression 10-14 Moderate depression 15-19 Moderately severe depression 20-27 Severe depression There is no problem list on file for this patient. No past medical history on file. No past surgical history on file. No family history on file. ALLERGIES Allergen Reactions Bactrim [Sulfametho* Rash Cymbalta [Duloxetin* GI Upset Lisinopril Cough Prozac [Fluoxetine] Other: See Comments Makes patient jitter CURRENT MEDICATIONS: mecobalamin (B12 ACTIVE ORAL) Take 1 capsule by mouth once daily. gabapentin (NEURONTIN) 300 mg/6 mL (6 mL) oral solution Take 300 mg by mouth. traMADol (ULTRAM) 50 mg tablet Take 50 mg by mouth every 6 hours as needed for pain. atorvastatin (LIPITOR) 10 mg tablet Take 10 mg by mouth once daily. losartan (COZAAR) 25 mg tablet Take 25 mg by mouth once daily. hydroCHLOROthiazide (HYDRODIURIL, ESIDRIX) 25 mg tablet Take 25 mg by mouth once daily. montelukast (SINGULAIR) 10 mg tablet Take 10 mg by mouth daily at bedtime. esomeprazole (NEXIUM) 20 mg capsule Take 20 mg by mouth once daily. Multivitamins-M (more content not included)... Normal [facility] SCREENING MAMMOGRAM W/TYSON, BILATERAL*on 10-12-2021 SCREENING MAMMOGRAM W/TYSON, BILATERAL* COMPARISON: Dating back to September 22, 2020 and April 19, 2019 TECHNIQUE: 2D and 3D Tomosynthesis of the right and left breasts was performed. FINDINGS: Breast composition demonstrates almost entirely fat. Stable. Typically benign calcifications. No suspicious microcalcifications, asymmetry, architectural distortion or associated features are present. IMPRESSION: BI RADS 2 : BENIGN MAMMOGRAM Board Certified Radiologist. Accredited by the ACR and FDA. MAMMOGRAPHY IS VERY IMPORTANT TO YOUR HEALTH. THE CURRENT [place] [employer] GUIDELINES RECOMMENDS ANNUAL MAMMOGRAPHY BEGINNING AT AGE 40. THIS FACILITY USES A REMINDER SYSTEM TO ENSURE ALL PATIENTS RECEIVE REMINDER NOTIFICATIONS AT THE APPROPRIATE TIME BASED ON THE RECOMMENDATIONS OF THIS EXAM. Report reported and signed by Juan Gonzales on 10/12/2021 0928 Normal [facility] Bicycle Inspector Q - URINALYSIS,COMPLETEon Appearance (U) CLEAR Normal CLEAR [place] Specialist Comment on above: Order Comment: [facility] performed at: [facility], [facility] [address], [address] [place] [address], [address] [place] [address], Workforce Analyst: Nain Tuttle MD [facility] Date/Time: [id number] [facility] Results Received Date/Time: [facility] Reported Date/Time: Performed By: #### 3 4F #### [facility] Default [address] [place] [address] BACTERIA NONE SEEN Normal NONE SEEN [facility] Bicycle Inspector Comment on above: Order Comment: [facility] performed at: [facility], [address], [address] [place] [address], [address] [place] [address], Workforce Analyst: Nain Tuttle MD [facility] Date/Time: [id number] [facility] Results Received Date/Time: [facility] Reported Date/Time: Performed By: #### 3 4F #### [facility] Default [address] [place] [address] Bilirubin Ql (U) Negative Normal NEGATIVE [facility] Specialist Comment on above: Order Comment: [facility] performed at: [facility], [address], [address] [place] [address], [address] [place] [address], Workforce Analyst: Nain Tuttle MD [facility] Date/Time: [facility] Results Received Date/Time: [facility] Reported Date/Time: Performed By: #### 3 4F #### [facility] Default [address] [place] [address] Color (U) YELLOW Normal YELLOW [facility] Bicycle Inspector Comment on above: Order Comment: [facility] performed at: [facility], [facility], [address] , [address] [place] [address], [address] [place] [address], Workforce Analyst: Nain Tuttle MD [facility] Date/Time: [facility] Received Date/Time: [facility] Reported Date/Time: Performed By: #### 3 4F #### [facility] Default [address] [place] [address] Glucose Ql (U) Negative Normal NEGATIVE [place] [facility] Comment on above: Order Comment: [facility] performed at: [facility], [facility], [address] , [address] [place] [address], [address] [place] [address], Workforce Analyst: Nain Tuttle MD [facility] Date/Time: [facility] Results Received Date/Time: [facility] Reported Date/Time: Performed By: #### 3 4F #### [facility] Default [address] [place] [address] HYALINE CAST NONE SEEN Normal NONE SEEN [facility] Bicycle Inspector Comment on above: Order Comment: [facility] performed at: [facility], [facility], [address] , [address] [place] [address], [address] [place] [address], Workforce Analyst: Nain Tuttle MD [facility] Date/Time: [facility] Received Date/Time: [facility] Reported Date/Time: Performed By: #### 3 4F #### [facility] Default [address] [place] [address] Ketones Ql (U) Negative Normal NEGATIVE [place] Bicycle Inspector Comment on above: Order Comment: [facility] performed at: [facility], [facility], [address] [facility], [address] [place] [address], [address] [place] [address], Workforce Analyst: Nain Tuttle MD [facility] Date/Time: [facility] Received Date/Time: [facility] Reported Date/Time: Performed By: #### 3 4F #### [facility] Default [address] [place] [address] Leukocyte esterase Test strip Ql (U) Negative Normal NEGATIVE [facility] Bicycle Inspector Comment on above: Order Comment: [facility] performed at: [facility], [facility], [address] [facility], [address] [place] [address], [address] [place] [address], Workforce Analyst: Nain Tuttle MD [facility] Date/Time: [facility] Received Date/Time: [facility] Reported Date/Time: Performed By: #### 3 4F #### [facility] Default [address] [place] [address] Nitrite Ql (U) Negative Normal NEGATIVE [facility] Bicycle Inspector Comment on above: Order Comment: [facility] performed at: [facility], [facility], [address] , [address] [place] [address], [address] [place] [address], Workforce Analyst: Nain Tuttle MD [facility] Date/Time: [facility] Results Received Date/Time: [facility] Reported Date/Time: Performed By: #### 3 4F #### [facility] Default [address] [place] [address] OCCULT BLOOD Negative Normal NEGATIVE [facility] Bicycle Inspector Comment on above: Order Comment: [facility] performed at: [facility], [facility], [address] , [address] [place] [address], [address] [place] [address], Workforce Analyst: Nain Tuttle MD [facility] Date/Time: [facility] Received Date/Time: [facility] Reported Date/Time: Performed By: #### 3 4F #### [facility] Default [address] [place] [address] pH (U) [pH] Abnormal 5.0-8.0 [facility] Bicycle Inspector Comment on above: Order Comment: [facility] performed at: [facility], [facility], [address] [place] [address], [address] [place] [address], [address] [place] [address], Workforce Analyst: Nain Tuttle MD [facility] Date/Time: [facility] Results Received Date/Time: [facility] Reported Date/Time: Performed By: #### 3 4F #### [facility] Default [address] [place] [address] Protein Ql (U) Negative Normal NEGATIVE [place] Special[facility] Comment on above: Order Comment: [facility] performed at: [facility], [facility], [address] [place] [address], [address] [place] [address], [address] [place] [address], Workforce Analyst: Nain Tuttle MD [facility] Date/Time: [facility] Results Received Date/Time: [facility] Reported Date/Time: Performed By: #### 3 4F #### [facility] Default [address] [place] [address] RBC NONE SEEN Normal < OR = 2 [facility] Bicycle Inspector Comment on above: Order Comment: [facility] performed at: [facility], [facility], [address] [place] [address], [address] [place] [address], [address] [place] [address], Workforce Analyst: Nain Tuttle MD [facility] Date/Time: [facility] Results Received Date/Time: [facility] Reported Date/Time: Performed By: #### 3 4F #### [facility] Default [address] [place] [address] Specific gravity (U) [Rel density] 1.010 Normal 1.001-1.035 [facility] Bicycle Inspector Comment on above: Order Comment: [facility] performed at: [facility], [facility], [address] [place], [place], [address] [place] [address], Workforce Analyst: Nain Tuttle MD [facility] Date/Time: [facility] Results Received Date/Time: [facility] Reported Date/Time: Performed By: #### 3 4F #### [facility] Default [address] [place] [address] SQUAMOUS EPITHELIAL CELLS 0-5 Normal < OR = 5 [facility] Specialist Comment on above: Order Comment: [facility] performed at: [facility], [facility], [address] [facility], [address] [place] [address], [address] [place] [address], Workforce Analyst: Nain Tuttle MD [facility] Date/Time: [facility] Results Received Date/Time: [facility] Reported Date/Time: Performed By: #### 3 4F #### [facility] Default [address] [place] [address] WBC NONE SEEN Normal < OR = 5 [facility] Specialist Comment on above: Order Comment: [facility] performed at: [facility], [address] [facility], [address] [place] [address], [address] [place] [address], Workforce Analyst: Nain Tuttle MD [facility] Date/Time: [facility] Results Received Date/Time: [facility] Reported Date/Time: Performed By: #### 3 4F #### [facility] Default [address] [place] [address] XR lumbar spine 6V w bending on 06-13-2021 XR lumbar spine 6V w bending [facility] [address] XRay Report Signed Patient: Sylvia Miller MR#: [id number] 9 : 1950 Acct:[id number] Age/Sex: 71 / F ADM Date: 06/13/21 Loc: ICXD Room: Type: [facility] Attending Dr: Shun Rodgers MD Ordering Provider: Shun Rodgers MD Date of Service: 06/13/21 XR/XR lumbar spine 6V w bending: Other spondylosis with radiculopathy, lumbar region Copies to: Shun Rodgers MD LUMBAR SPINE - 6 views: CLINICAL HISTORY: Low back pain. Spinal stenosis. COMPARISON: Lumbar spine series 02/06/2021 5 lumbar type vertebral bodies are noted. Levoscoliosis is present, grossly similar to the prior study. No pathological movement is seen on flexion-extension or bending images. Diffuse degenerative disc disease with associated endplate and facet joint degenerative changes grossly similar to the prior study. Vertebral body heights appear well-maintained. . Bones are grossly demineralized. Moderate stool burden is seen within the colon. XR/XR lumbar spine 6V w bending IMPRESSION: DIFFUSE DEGENERATIVE DISC DISEASE WITH ASSOCIATED LEVOSCOLIOSIS, GROSSLY SIMILAR TO THE PRIOR LUMBAR SPINE STUDY FROM 02/06/2021. NO DEFINITE ACUTE BONY PROCESS IS SEEN.. Impression dictated by: Juan Morgan Jr., D.O.06/13/2021 11:08 AM Dictation Location: [place] [address] Transcribed By: [facility] 06/13/21 1108 Dictated By: Juan Morgan Jr, DO 06/13/21 1104 Signed By: 06/13/21 1108 [facility] Vitamin B12on 05-15-2021 Cobalamin (Vitamin B12) [Mass/Vol] 630 pg/mL Normal 211-946 [facility] Bicycle Inspector Comment on above: Performed By: #### B 12 #### [facility] [address] [facility] [place] [id number] MR lumbar spine wo conon MR lumbar spine wo con [facility] Main [address] [address] MRI Report Signed Patient: Sylvia Miller MR#: [id number] 9 : 1950 Acct:[id number] Age/Sex: 70 / F ADM Date: 02/13/21 Loc: [facility] Room: Type: [facility] Attending Dr: Jamie Osorio PA-C Ordering Provider: Jamie Osorio PA-C Date of Service: 02/13/21 MR/MR lumbar spine wo con: M48.00 Copies to: Jamie Osorio PA-C MR lumbar spine wo con 02/13/2021 12:51 PM SIGNS AND SYMPTOMS: Numbness, tingling, and burning down back of the legs bilaterally with leg weakness. Unsteady gait PROTOCOL: Multiplanar multisequence MR images of the lumbar spine were obtained without IV contrast. COMPARISON: 02/07/2012 FINDINGS: There is a significant levoconvex curvature. There is 4 mm of anterolisthesis of L5 upon S1.. There is preservation of vertebral body heights and intervertebral disc spaces. There is Modic type I endplate edema at L1-L2 and L3-L4. The conus terminates at the L1 vertebral body level. No epidural or paraspinous fluid collection is appreciated. At T12-L1: There is a broad-based disc bulge with facet hypertrophy. There is mild spinal canal stenosis. There is moderate left and mild right neural foraminal narrowing. At L1-L2: There is a left foraminal disc protrusion with bilateral facet hypertrophy. There is mild right and severe left neural foraminal narrowing with mild spinal canal narrowing. Is mass effect on the exiting left L1 nerve roots. At L2-L3: There is a broad-based disc bulge with facet and ligament flavum degenerative change. There is mild to moderate spinal canal narrowing. There is moderate to severe bilateral neural foraminal narrowing. At L3-L4: There is a broad-based disc bulge with facet and ligament flavum degenerative change causing moderate to severe spinal canal stenosis. There is also moderate to severe bilateral neural foraminal narrowing, right greater than left. There is mass effect on the exiting right L4 nerve roots. At L4-L5: There is a circumferential disc bulge with facet and ligament flavum degenerative change and bilateral facet effusions. There is severe spinal canal stenosis. There is moderate right and severe left neural foraminal narrowing with mass effect on the exiting left L4 nerve roots. At L5-S1: There is a broad-based disc bulge with facet hypertrophy left greater than right. There is moderate severe left neural foraminal narrowing with mass effect on the exiting left L5 nerve roots. There is mild spinal canal narrowing. MR/MR lumbar spine wo con IMPRESSION: Similar levoconvex curvature with 4 mm of anterolisthesis of L5 upon S1. Severe multilevel degenerative change with significant neural foraminal narrowing at multiple levels, left greater the right. This contributes to mass effect on the exiting nerve roots at these levels as detailed above. Impression dictated by: Eve Franco M.D.02/13/2021 6:01 PM Dictation Location: [facility]--11 Transcribed By: [facility] 02/13/211800 Dictated By: Eve Franco II, MD 02/13/21 175 Signed By: 02/13/211800 [facility] XR lumbar spine 2-3V*on XR lumbar spine 2-3V* [facility] Main [place] [address] [place] [address] XRay Report Signed Patient: Sylvia Miller MR#: [id number] 9 : 1950 Acct:[id number] Age/Sex: 70 / F ADM Date: 02/06/21 Loc: ICXD Room: Type: [facility] Attending Dr: Jamie Osorio PA-C Ordering Provider: Jamie Osorio PA-C Date of Service: 02/06/21 XR/XR lumbar spine 2-3V*: SPINAL STENOSIS Copies to: Jamie Osorio PA-C AP and lateral lumbar spine HISTORY: Low back pain. Spinal stenosis. COMPARISON:None Lumbar lordosis is adequate. No acute lumbar spine fracture is identified. Mild lower lumbar listhesis identified. Multilevel disc space narrowing and endplate spurring is present. Lower lumbar hypertrophic facet changes. Moderate scoliosis with concavity to the RIGHT. RIGHT hip arthroplasty. Cholecystectomy. Moderate lower lumbar bony central canal narrowing. Diffuse osteopenia. Atherosclerosis. No paraspinal abnormality seen. SI joints are maintained. XR/XR lumbar spine 2-3V* IMPRESSION: Multilevel degenerative changes with scoliosis. No acute bony findings. Impression dictated by: Paul Rodriguez M.D.02/06/2021 4:39 PM Dictation Location: [facility] Transcribed By: ADOLFO 02/06/21 1639 Dictated By: Paul Rodriguez DO 02/06/21 1637 Signed By: 02/06/21 163 [facility] CBC AUTO DIFFon 08-30-2020 Basophils (Bld) [#/Vol] 0.1 103/ul Normal 0.0-0.1 [facility] Comment on above: Performed By: #### R SPLUS #### [facility] [address] [place] [address] Jasmin Shireen Basophils/100 WBC (Bld) 0.4 % Normal 0.2-2.0 [facility] Comment on above: Performed By: #### R SPLUS #### [facility] [address] [place] [address] Jasmin Shireen Eosinophils (Bld) [#/Vol] 0.1 103/ul Normal 0.0-0.7 [facility] Comment on above: Performed By: #### R SPLUS #### [facility] [address] [place] [address] Jasmin Shireen Eosinophils/100 WBC (Bld) 0.7 % Critically low 0.9-7.0 [facility] Comment on above: Performed By: #### R SPLUS #### [facility] [address] [place] [address] Jasmin Shireen Erythrocyte distribution width (RBC) [Ratio] 14.2 % Normal 11.0-15.0 [facility] Comment on above: Performed By: #### R SPLUS #### [facility] [address] [place] [address] Jasmin Shireen Hematocrit (Bld) [Volume fraction] 39.1 % Normal 36.0-48.0 [facility] Comment on above: Performed By: #### R SPLUS #### [facility] [address] [place] [address] Jasmin Shireen Hemoglobin (Bld) [Mass/Vol] 12.9 g/dL Normal 12.0-16.0 [facility] Comment on above: Performed By: #### R SPLUS #### [facility] [address] [place] [address] Jasmin Shireen IG # 0.05 10e3/ul Critically high 0.00-0.03 [facility] Comment on above: Performed By: #### R SPLUS #### [facility] [address] [address] Jasmin Shireen IG % 0.4 % Normal 0.0-0.5 [facility] Comment on above: Performed By: #### R SPLUS #### [facility] [address] [address] Jasmin Shireen Lymphocytes (Bld) [#/Vol] 1.8 103/ul Normal 1.2-3.8 [facility] Comment on above: Performed By: #### R SPLUS #### [facility] [address] [place] [address] Jasmin Shireen Lymphocytes/100 WBC (Bld) 13.7 % Critically low 20.5-60.0 [facility] Comment on above: Performed By: #### R SPLUS #### [facility] [address] [place] [address] Jasmin Shireen MANUAL DIFF REQ NO Normal The [facility] Comment on above: Performed By: #### R SPLUS #### [facility] [address] [place] [address] Jasmin Shireen MCH (RBC) [Entitic mass] 30.2 pg Normal 26.7-34.0 [facility] Comment on above: Performed By: #### R SPLUS #### [facility] [address] [place] [address] Jasmin Shireen MCHC (RBC) [Mass/Vol] 33.0 g/dL Normal 29.9-35.2 [facility] Comment on above: Performed By: #### R SPLUS #### [facility] [address] [place] [address] Jasmin Shireen MCV (RBC) [Entitic vol] 91.6 fL Normal 81.0-99.0 [facility] Comment on above: Performed By: #### R SPLUS #### [facility] [address] [place], [place] [id number] Jasmin Shireen Monocytes (Bld) [#/Vol] 1.1 103/ul Critically high 0.3-0.8 [facility] Comment on above: Performed By: #### R SPLUS #### [facility] [address] [place], [place] [id number] Jasmin Shireen Monocytes/100 WBC (Bld) 8.3 % Normal 1.7-12.0 [facility] Comment on above: Performed By: #### R SPLUS #### [facility] [address] [place] [address] Jasmin Shireen Neutrophils (Bld) [#/Vol] 10.3 103/ul Critically high 1.4-6.5 [facility] Comment on above: Performed By: #### R SPLUS #### [facility] [address] [place], [place] [id number] Jasmin Shireen Neutrophils/100 WBC (Bld) 76.5 % Critically high 43.0-75.0 [facility] Comment on above: Performed By: #### R SPLUS #### [facility] [address] [place], [place] [id number] Jasmin Shireen Platelet mean volume (Bld) [Entitic vol] 9.3 fL Critically low 9.5-13.5 [facility] Comment on above: Performed By: #### R SPLUS #### [facility] [address] [place], [place] [id number] Jasmin Shireen Platelets (Bld) [#/Vol] 241 103/ul Normal 150-450 [facility] Comment on above: Performed By: #### R SPLUS #### [facility] [address] [place], [place] [address] Jasmin Shireen RBC (Bld) [#/Vol] 4.27 106/ul Normal 4.20-5.40 [facility] Comment on above: Performed By: #### R SPLUS #### [facility] [address] [place] [address] Jasmin Shireen WBC (Bld) [#/Vol] 13.4 103/ul Critically high 4.0-11.0 [facility] Comment on above: Performed By: #### R SPLUS #### [facility] [address] [place] [address] Jasminmichael Huaen LIVER PROFILEon 01-30-2020 Albumin [Mass/Vol] 3.1 g/dL Critically low 3.5-5.0 e [facility] Comment on above: Performed By: #### R SPLUS #### [facility] [address] [place], [place] [id number] Jasmin Shireen Albumin/Globulin [Mass ratio] 0.9 {ratio} Normal [facility] Comment on above: Performed By: #### R SPLUS #### [facility] [address] [place] [address] Jasmin Shireen ALP [Catalytic activity/Vol] 80 U/L Normal 38-126 [facility] Comment on above: Performed By: #### R SPLUS #### [facility] [address] [place] [address] Jasmin Shireen ALT [Catalytic activity/Vol] 32 U/L Normal 9-52 [facility] Comment on above: Performed By: #### R SPLUS #### [facility] [address] [place] [address] Jasmin Shireen AST [Catalytic activity/Vol] 14 U/L Normal 14-36 [facility] Comment on above: Performed By: #### R SPLUS #### [facility] [address] [place] [address] Jasmin Shireen BILI, CONJUGATED 0.1 mg/dL Normal 0.0-0.3 [facility] Comment on above: Performed By: #### R SPLUS #### [facility] [address] [place] [address] Jasmin Shireen Bilirubin Ql (U) 0.4 mg/dL Normal 0.2-1.3 [facility] Comment on above: Performed By: #### R SPLUS #### [facility] [address] [place] [address] Jasmin Shireen Globulin (S) [Mass/Vol] 3.6 g/dL Normal [facility] Comment on above: Performed By: #### R SPLUS #### [facility] [address] [place] [address] Jasmin Shireen Protein [Mass/Vol] 6.7 g/dL Normal 6.1-8.2 [facility] Comment on above: Performed By: #### R SPLUS #### [facility] [address] [address] Jasmin Shireen PROF CHEM 8 (BAS METB)on Anion gap [Moles/Vol] 5.6 mmol/L Normal [facility] Comment on above: Performed By: #### R SPLUS #### [facility] [address] [address] Jasmin Shireen Calcium [Mass/Vol] 8.6 mg/dL Normal 8.4-10.2 [facility] Comment on above: Performed By: #### R SPLUS #### [facility] [address] [address] Jasmin Shireen Chloride [Moles/Vol] 100 mmol/L Normal 98-107 [facility] Comment on above: Performed By: #### R SPLUS #### [facility] [address] [place] [address] Jasmin Shireen CO2 [Moles/Vol] 35.0 mmol/L Critically high 22.0-30.0 [facility] Comment on above: Performed By: #### R SPLUS #### [facility] [address] [place] [address] Jasmin Shireen Creatinine [Mass/Vol] 0.69 mg/dL Normal 0.52-1.04 [facility] Comment on above: Performed By: #### R SPLUS #### [facility] [address] [place] [address] Jasmin Shireen EGFR-AF GRE[place]IC >60 Normal >=60 [facility] Comment on above: Performed By: #### R SPLUS #### [facility] [address] [place] [address] Jasmin Shireen EGFR-NON AF [place] >60 Normal >=60 [facility] Comment on above: Performed By: #### R SPLUS #### [facility] [address] [place] [address] Jasmin Shireen Glucose [Mass/Vol] 112 mg/dL Critically high 74-106 [facility] Comment on above: Performed By: #### R SPLUS #### [facility] [address] [place] [address] Jasmin Shireen Potassium [Moles/Vol] 2.5 mmol/L Critically low 3.4-5.0 [facility] Comment on above: Result Comment: Test Repeated. Critical Value Verified Performed By: #### R SPLUS #### [facility] [address] [place] [address] Jasmin Shireen Sodium [Moles/Vol] 138 mmol/L Normal 137-145 [facility] Comment on above: Performed By: #### R SPLUS #### [facility] [address] [place] [address] Jasmin Shireen Urea nitrogen [Mass/Vol] 7.0 mg/dL Normal 7.0-17.0 [facility] Comment on above: Performed By: #### R SPLUS #### [facility] [address] [place] [address] Jasmin Shireen Urea nitrogen/Creatinine [Mass ratio] 10.1 mg/mg Normal [facility] Comment on above: Performed By: #### R SPLUS #### [facility] [address] [place] [address] Jasmin Shireen CBC AUTO DIFFon 01-29-2020 Basophils (Bld) [#/Vol] 0.0 103/ul Normal 0.0-0.1 [facility] Comment on above: Performed By: #### R SPLUS #### [facility] [address] [place], [place] [id number] Jasmin Shireen Basophils/100 WBC (Bld) 0.3 % Normal 0.2-2.0 [facility] Comment on above: Performed By: #### R SPLUS #### [facility] [address] [place], [place] [address] Jasmin Shireen Eosinophils (Bld) [#/Vol] 0.1 103/ul Normal 0.0-0.7 [facility] Comment on above: Performed By: #### R SPLUS #### [facility] [address] [place], [place] [address] Jasmin Shireen Eosinophils/100 WBC (Bld) 0.4 % Critically low 0.9-7.0 [facility] Comment on above: Performed By: #### R SPLUS #### [facility] [address] [address] Jasmin Shireen Erythrocyte distribution width (RBC) [Ratio] 14.0 % Normal 11.0-15.0 [facility] Comment on above: Performed By: #### R SPLUS #### [facility] [address] [address] Jasmin Shireen Hematocrit (Bld) [Volume fraction] 38.1 % Normal 36.0-48.0 [facility] Comment on above: Performed By: #### R SPLUS #### [facility] [address] [address] Jasmin Shireen Hemoglobin (Bld) [Mass/Vol] 12.6 g/dL Normal 12.0-16.0 [facility] Comment on above: Performed By: #### R SPLUS #### [facility] [address] [place] [address] Jasmin Shireen IG # 0.06 10e3/ul Critically high 0.00-0.03 [facility] Comment on above: Performed By: #### R SPLUS #### [facility] [address] [place] [address] Jasmin Shireen IG % 0.5 % Normal 0.0-0.5 [facility] Comment on above: Performed By: #### R SPLUS #### [facility] [address] [address] Jasmin Shireen Lymphocytes (Bld) [#/Vol] 1.6 103/ul Normal 1.2-3.8 [facility] Comment on above: Performed By: #### R SPLUS #### [facility] [address] [place], [place] [address] Jasmin Shireen Lymphocytes/100 WBC (Bld) 12.2 % Critically low 20.5-60.0 [facility] Comment on above: Performed By: #### R SPLUS #### [facility] [address] [place], [place] [address] Jasmin Shireen MANUAL DIFF REQ NO Normal [facility] Comment on above: Performed By: #### R SPLUS #### [facility] [address] [place], [place] [address] Jasmin Shireen MCH (RBC) [Entitic mass] 30.0 pg Normal 26.7-34.0 [facility] Comment on above: Performed By: #### R SPLUS #### [facility] [address] [place], [place] [address] Jasminmichael Huaen MCHC (RBC) [Mass/Vol] 33.1 g/dL Normal 29.9-35.2 [facility] Comment on above: Performed By: #### R SPLUS #### [facility] [address] [place], [place] [address] Jasmin Shireen MCV (RBC) [Entitic vol] 90.7 fL Normal 81.0-99.0 [facility] Comment on above: Performed By: #### R SPLUS #### [facility] [address] [place] [address] Jasmin Shireen Monocytes (Bld) [#/Vol] 1.0 103/ul Critically high 0.3-0.8 [facility] Comment on above: Performed By: #### R SPLUS #### [facility] [address] [place], [place] [address] Jasmin Shireen Monocytes/100 WBC (Bld) 7.6 % Normal 1.7-12.0 [facility] Comment on above: Performed By: #### R SPLUS #### [facility] [address] [place], [place] [address] Jasmin Shireen Neutrophils (Bld) [#/Vol] 10.1 103/ul Critically high 1.4-6.5 [facility] Comment on above: Performed By: #### R SPLUS #### [facility] [address] [place], [place] [address] Jasmin Shireen Neutrophils/100 WBC (Bld) 79.0 % Critically high 43.0-75.0 [facility] Comment on above: Performed By: #### R SPLUS #### [facility] [address] [place], [place] [address] Jasmin Shireen Platelet mean volume (Bld) [Entitic vol] 9.2 fL Critically low 9.5-13.5 [facility] Comment on above: Performed By: #### R SPLUS #### [facility] [address] [place], [place] [address] Jasminmichael Iyer Platelets (Bld) [#/Vol] 216 103/ul Normal 150-450 [facility] Comment on above: Performed By: #### R SPLUS #### [facility] [address] [place], [place] [address] Jasminmichael Huaen RBC (Bld) [#/Vol] 4.20 106/ul Normal 4.20-5.40 [facility] Comment on above: Performed By: #### R SPLUS #### [facility] [address] [place], [place] [address] Jasminmichael Huaen WBC (Bld) [#/Vol] 12.8 103/ul Critically high 4.0-11.0 [facility] Comment on above: Performed By: #### R SPLUS #### [facility] [address] [place] [address] Jasminmichael Iyer LIVER PROFILEon 01-29-2020 Albumin [Mass/Vol] 3.0 g/dL Critically low 3.5-5.0 [facility] Comment on above: Performed By: #### R SPLUS #### [facility] [address] [place], [place] [address] Jasmin Shireen Albumin/Globulin [Mass ratio] 0.8 {ratio} Normal [facility] Comment on above: Performed By: #### R SPLUS #### [facility] [address] [place], [place] [address] Jasmin Shireen ALP [Catalytic activity/Vol] 77 U/L Normal 38-126 [facility] Comment on above: Performed By: #### R SPLUS #### [facility] [address] [place], [place] [address] Jasmin Shireen ALT [Catalytic activity/Vol] 30 U/L Normal 9-52 [facility] Comment on above: Performed By: #### R SPLUS #### [facility] [address] [place] [address] Jasmin Shireen AST [Catalytic activity/Vol] 16 U/L Normal 14-36 [facility] Comment on above: Performed By: #### R SPLUS #### [facility] [address] [place] [address] Jasmin Shireen BILI, CONJUGATED 0.1 mg/dL Normal 0.0-0.3 [facility] Comment on above: Performed By: #### R SPLUS #### [facility] [address] [place] [address] Jasmin Shireen Bilirubin Ql (U) 0.5 mg/dL Normal 0.2-1.3 [facility] Comment on above: Performed By: #### R SPLUS #### [facility] [address] [place] [address] Jasmin Shireen Globulin (S) [Mass/Vol] 3.6 g/dL Normal [facility] Comment on above: Performed By: #### R SPLUS #### [facility] [address] [place] [address] Jasmin Shireen Protein [Mass/Vol] 6.6 g/dL Normal 6.1-8.2 [facility] Comment on above: Performed By: #### R SPLUS #### [facility] [address] [place], [place] [address] Jasmin Shireen PROF CHEM 8 (BAS METB)on Anion gap [Moles/Vol] 6.3 mmol/L Normal [facility] Comment on above: Performed By: #### R SPLUS #### [facility] [address] [place] [address] Jasmin Shireen Calcium [Mass/Vol] 8.1 mg/dL Critically low 8.4-10.2 [facility] Comment on above: Performed By: #### R SPLUS #### [facility] [address] [place] [address] Jasmin Shireen Chloride [Moles/Vol] 100 mmol/L Normal 98-107 [facility] Comment on above: Performed By: #### R SPLUS #### [facility] [address] [place] [address] Jasmin Shireen CO2 [Moles/Vol] 33.3 mmol/L Critically high 22.0-30.0 [facility] Comment on above: Performed By: #### R SPLUS #### [facility] [address] [place] [address] Jasmin Shireen Creatinine [Mass/Vol] 0.62 mg/dL Normal 0.52-1.04 [facility] Comment on above: Performed By: #### R SPLUS #### [facility] [address] [place] [address] Jasmin Shireen EGFR-AF [place] >60 Normal >=60 [facility] Comment on above: Performed By: #### R SPLUS #### [facility] [address] [place] [address] Jasmin Shireen EGFR-NON AF [place] >60 Normal >=60 [facility] Comment on above: Performed By: #### R SPLUS #### [facility] [address] [place] [address] Jasmin Shireen Glucose [Mass/Vol] 96 mg/dL Normal 74-106 [facility] Comment on above: Performed By: #### R SPLUS #### [facility] [address] [place] [address] Jasmin Shireen Potassium [Moles/Vol] 2.5 mmol/L Critically low 3.4-5.0 [facility] Comment on above: Result Comment: test repeated critical value verified Performed By: #### R SPLUS #### [facility] [address] [place] [address] Jasmin Shireen Sodium [Moles/Vol] 137 mmol/L Normal 137-145 [facility] Comment on above: Performed By: #### R SPLUS #### [facility] [address] [place] [address] Jasmin Shireen Urea nitrogen [Mass/Vol] 13.0 mg/dL Normal 7.0-17.0 [facility] Comment on above: Performed By: #### R SPLUS #### [facility] [address] [place] [address] Jasmin Shireen Urea nitrogen/Creatinine [Mass ratio] 21.0 mg/mg Normal [facility] Comment on above: Performed By: #### R SPLUS #### [facility] [address] [place], [place] [address] Jasmin Shireen CBC AUTO DIFFon 01-28-2020 Basophils (Bld) [#/Vol] 0.0 103/ul Normal 0.0-0.1 [facility] Comment on above: Performed By: #### C BC ####[facility] [address] [id number] Shireen Basophils/100 WBC (Bld) 0.2 % Normal 0.0-0.8 [facility] Comment on above: Performed By: #### C BC ####[facility] [address] [id number] Shireen Eosinophils (Bld) [#/Vol] 0.0 103/ul Normal 0.0-0.7 [facility] Comment on above: Performed By: #### C BC ####[facility] [address] [place], [place] [id number] Shireen Eosinophils/100 WBC (Bld) 0.1 % Normal 0.0-5.2 [facility] Comment on above: Performed By: #### C BC ####[facility] [address] [place], [place] [id number] Shireen Erythrocyte distribution width (RBC) [Ratio] 14.2 % Normal 11.0-15.0 [facility] Comment on above: Performed By: #### C BC ####[facility] [address] [place], [place] [id number] Shireen Hematocrit (Bld) [Volume fraction] 42.5 % Critically low 45.9-66.6 [facility] Comment on above: Performed By: #### C BC ####[facility] [address] [place], [place] [id number] Shireen Hemoglobin (Bld) [Mass/Vol] 14.1 g/dL Critically low 15.3-22.2 [facility] Comment on above: Performed By: #### C BC ####[facility] [address] [id number] Shireen IG # 0.14 10e3/ul Critically high 0.00-0.03 [facility] Comment on above: Performed By: #### C BC ####[facility] [address] [id number] Shireen IG % 0.9 % Critically high 0.0-0.5 [facility] Comment on above: Performed By: #### C BC ####[facility] [address] [id number] Shireen Lymphocytes (Bld) [#/Vol] 1.6 103/ul Critically low 1.8-8.0 [facility] Comment on above: Performed By: #### C BC ####[facility] [id number] Shireen Lymphocytes/100 WBC (Bld) 9.7 % Critically low 24.9-68.5 [facility] Comment on above: Performed By: #### C BC ####[facility] [address] [place] [address] Shireen MANUAL DIFF REQ NO Normal [facility] Comment on above: Performed By: #### C BC ####[facility] [address] [id number] Shireen MCH (RBC) [Entitic mass] 30.1 pg Critically low 31.1-35.9 [facility] Comment on above: Performed By: #### C BC ####[facility] [address] [id number] Shireen MCHC (RBC) [Mass/Vol] 33.2 g/dL Normal 33.0-35.7 [facility] Comment on above: Performed By: #### C BC ####[facility] [address] [id number] Shireen MCV (RBC) [Entitic vol] 90.8 fL Critically low 92.4-115.4 [facility] Comment on above: Performed By: #### C BC ####[facility] [address] [place], [place] [address]Hpdcwi Shireen Monocytes (Bld) [#/Vol] 1.4 103/ul Normal 0.5-1.8 [facility] Comment on above: Performed By: #### C BC ####[facility] [address] [place], [place] [address]Hqufyg Shireen Monocytes/100 WBC (Bld) 8.2 % Normal 5.2-20.6 [facility] Comment on above: Performed By: #### C BC ####[facility] [address] [place] [address]Xxaeln Shireen Neutrophils (Bld) [#/Vol] 13.3 103/ul Critically high 1.6-6.8 [facility] Comment on above: Performed By: #### C BC ####[facility] [address] [place] [address]Voctee Shireen Neutrophils/100 WBC (Bld) 80.9 % Critically high 15.2-66.1 [facility] Comment on above: Performed By: #### C BC ####[facility] [address] [place] [address]Lithox Shireen Platelet mean volume (Bld) [Entitic vol] 9.6 fL Normal 9.5-13.5 [facility] [facility] Comment on above: Performed By: #### C BC ####[facility] [address] [place] [address] 64095Yldfsb Shireen Platelets (Bld) [#/Vol] 216 103/ul Normal 150-450 [facility] Comment on above: Performed By: #### C BC ####[facility] Zwon[address] [place] [address] 64519Epfowl Shireen RBC (Bld) [#/Vol] 4.68 106/ul Normal 4.10-5.74 [facility] [place] [facility] Comment on above: Performed By: #### C BC ####[facility] C[address]om[address] [place] [address] 12671Snxogy Shireen WBC (Bld) [#/Vol] 16.4 103/ul Critically high 8.0-15.4 [facility] Comment on above: Performed By: #### C BC ####[facility] Zbhtxnhswb2481 [place], [place] [address]Pgujfo Shireen LIVER PROFILEon 01-28-2020 Albumin [Mass/Vol] 3.3 g/dL Critically low 3.5-5.0 Th e [facility] Comment on above: Performed By: #### B MP, LIVER ####[facility] Jhcumvmxly4023 [place], [place] [address]Mzkyel Shireen Albumin/Globulin [Mass ratio] 0.8 {ratio} Normal [facility] Comment on above: Performed By: #### B MP, LIVER ####[facility] Crfqixswkq9763 [place] [phone] Shireen ALP [Catalytic activity/Vol] 80 U/L Normal 38-126 [facility] Comment on above: Performed By: #### B MP, LIVER ####[facility] Uapayqqvbi6794 [place] [phone] Shireen ALT [Catalytic activity/Vol] 29 U/L Normal 9-52 [facility] Comment on above: Performed By: #### B MP, LIVER ####[facility] Etjnqwlkky7670 [place] [phone] Shireen AST [Catalytic activity/Vol] 26 U/L Normal 14-36 [facility] Comment on above: Performed By: #### B MP, LIVER ####[facility] Bavhklgjgo8318 [place] [phone] Shireen BILI, CONJUGATED 0.1 mg/dL Normal 0.0-0.3 [facility] Comment on above: Performed By: #### B MP, LIVER ####[facility] Fycnolkdbp9563 [place], [place] [address]Wvquwi Shireen Bilirubin Ql (U) 0.5 mg/dL Normal 0.2-1.3 [facility] Comment on above: Performed By: #### B MP, LIVER ####[facility] Yketsmgsax0209 [place], [place] [address]Ymjcqz Shireen Globulin (S) [Mass/Vol] 3.9 g/dL Normal The [facility] Comment on above: Performed By: #### B MP, LIVER ####[facility] Aeqaucncwo1527 [place], [place] [address]Qsvwpq Shireen Protein [Mass/Vol] 7.2 g/dL Normal 6.1-8.2 [facility] Comment on above: Performed By: #### B MP, LIVER ####[facility] Xghseavnnn2299 [place] [phone] Shireen PROF CHEM 8 (BAS METB)on Anion gap [Moles/Vol] 10.8 mmol/L Normal [facility] Comment on above: Performed By: #### B MP, LIVER ####[facility] Rsxlnpdzai6074 [place] [phone] Shireen Calcium [Mass/Vol] 8.9 mg/dL Normal 8.4-10.2 [facility] [place] [facility] Comment on above: Performed By: #### B MP, LIVER ####[facility] [address]ax[address] [place], [place] [phone] Shireen Chloride [Moles/Vol] 98 mmol/L Normal 98-107 [facility] Comment on above: Performed By: #### B MP, LIVER ####[facility] Pibfmxtccr[address] [place], [place] [phone] Shireen CO2 [Moles/Vol] 30.0 mmol/L Normal 22.0-30.0 [facility] Comment on above: Performed By: #### B MP, LIVER ####[facility] Btgbotmmdi6017 [place] [phone] Shireen Creatinine [Mass/Vol] 0.69 mg/dL Normal 0.52-1.04 [facility] Comment on above: Performed By: #### B MP, LIVER ####[facility] Smtgvzpgku8616 [place] [phone] Shireen EGFR-AF GREENLANDIC >60 Normal >=60 [facility] Comment on above: Performed By: #### B MP, LIVER ####[facility] Yskiaobayw6488 [place] [phone] Shireen EGFR-NON AF [place]IC >60 Normal >=60 [facility] Comment on above: Performed By: #### B MP, LIVER ####[facility] Agreyyehnk9764 [place] [phone] Shireen Glucose [Mass/Vol] 100 mg/dL Normal 74-106 [facility] Comment on above: Performed By: #### B MP, LIVER ####[facility] Ylcmjtzxov2429 [place] [phone] Shireen Potassium [Moles/Vol] 2.8 mmol/L Critically low 3.4-5.0 [facility] Comment on above: Result Comment: test repeated critical value verified Performed By: #### B MP, LIVER ####[facility] Ukvkgznohi8258 [place] [phone] Shireen Sodium [Moles/Vol] 134 mmol/L Critically low 137-145 [facility] Comment on above: Performed By: #### B MP, LIVER ####[facility] Rpwaxolijq7917 [place] [phone] Shireen Urea nitrogen [Mass/Vol] 17.0 mg/dL Normal 7.0-17.0 [facility] Comment on above: Performed By: #### B MP, LIVER ####[facility] Oxuetxqkcf6455 [place] [phone] Shireen Urea nitrogen/Creatinine [Mass ratio] 24.6 mg/mg Normal [facility] Comment on above: Performed By: #### B MP, LIVER ####[facility] Lewhjhuhkm2552 [place], [place] [address]Nvcegx Shireen XR CHEST 2 Von 01-28-2020 XR CHEST 2 V EXAM: Chest, PA and lateral: HISTORY: Nausea and vomiting.. Comparison studies: 01/26/2020 TECHNIQUE: Frontal and lateral views of the chest were obtained. FINDINGS: The lungs are well-inflated and clear. There is stable scar versus atelectasis in the left midlung. The heart is stable in size. No obvious mass or adenopathy is seen. Osseous structures are normal. IMPRESSION: No acute process is identified. Electronically authenticated by: SHANELLE HERNANDEZ Date: 2020-01-28 11:45 Normal The [facility] XR CINERADIOGRAPHYon 020 XR CINERADIOGRAPHY EXAMINATION: XR UPPER GI NO AIR SM BOWEL, XR CINERADIOGRAPHY HISTORY: NAUSEA WITH VOMITING, UNSPECIFIED COMPARISON: No relevant comparison available. TECHNIQUE: Upper GI and small bowel series was performed in the usual manner. Standard level fluoroscopic mode of operation utilized. FINDINGS: ESOPHAGUS: Persistent mild tapering at the gastroesophageal junction. No mucosal irregularity. No significant gastroesophageal reflux. STOMACH: Normal. No obstruction, mass, or ulceration. Normal motility. DUODENUM: Normal. No ulceration or diverticulum. JEJUNUM: Normal. Normal motility. No obstruction or visible lesion. ILEUM: Normal. Normal motility. No obstruction or visible lesion. OTHER: Negative. IMPRESSION: 1. Mild narrowing of the gastroesophageal junction with gentle tapering; no visible mass or mucosal irregularity; uncertain clinical significance. 2. No appreciable gastroesophageal reflux. 3. Unremarkable stomach and small bowel. Electronically authenticated by: ENA DWYER Date: 2020-01-28 14:45 Normal The [facility] CBC AUTO DIFFon 01-27-2020 Basophils (Bld) [#/Vol] 0.0 103/ul Normal 0.0-0.1 [facility] Comment on above: Performed By: #### C BC ####[facility] Nhgrfvzvij6699 [place], [place] [address]Aoezhr Shireen Basophils/100 WBC (Bld) 0.1 % Critically low 0.2-2.0 [facility] Comment on above: Performed By: #### C BC ####[facility] Rgegxibirv1409 [place], [place] [address]Zdqvko Shireen Eosinophils (Bld) [#/Vol] 0.0 103/ul Normal 0.0-0.7 The [facility] Comment on above: Performed By: #### C BC ####[facility] Vaichnamov1458 [place], [place] [address]Iaucdr Shireen Eosinophils/100 WBC (Bld) 0.0 % Critically low 0.9-7.0 [facility] Comment on above: Performed By: #### C BC ####[facility] Vpojbosdlg1948 [place], [place] [address]Zsqgqy Shireen Erythrocyte distribution width (RBC) [Ratio] 14.1 % Normal 11.0-15.0 [facility] Comment on above: Performed By: #### C BC ####[facility] Pwqnqfwsrx[address] Shireen Hematocrit (Bld) [Volume fraction] 40.6 % Normal 36.0-48.0 [facility] Comment on above: Performed By: #### C BC ####[facility] P[address] [place] [address] Shireen Hemoglobin (Bld) [Mass/Vol] 13.2 g/dL Normal 12.0-16.0 [facility] Comment on above: Performed By: #### C BC ####[facility] [address] [place] [address] Shireen IG # 0.08 10e3/ul Critically high 0.00-0.03 [facility] Comment on above: Performed By: #### C BC ####[facility] Uug[address]cfprc[address] [place] [address] Shireen IG % 0.5 % Normal 0.0-0.5 [facility] Comment on above: Performed By: #### C BC ####[facility] Xr[address]lbveqi[address] [place] [address] Shireen Lymphocytes (Bld) [#/Vol] 1.4 103/ul Normal 1.2-3.8 [facility] Comment on above: Performed By: #### C BC ####[facility] Owqarocvdf[address] [place] [address] Shireen Lymphocytes/100 WBC (Bld) 8.1 % Critically low 20.5-60.0 [facility] Comment on above: Performed By: #### C BC ####[facility] Ypnrgdjsds[address] [place] [address] Shireen MANUAL DIFF REQ NO Normal [facility] Comment on above: Performed By: #### C BC ####[facility] Ljbt[address]ft[address] [place] [address] Shireen MCH (RBC) [Entitic mass] 29.6 pg Normal 26.7-34.0 [facility] Comment on above: Performed By: #### C BC ####[facility] Dpvyjyjrrk7471 [place] [phone] Iyer MCHC (RBC) [Mass/Vol] 32.5 g/dL Normal 29.9-35.2 [facility] Comment on above: Performed By: #### C BC ####[facility] [address]vkrgiwr[address] [place], [place] [phone] Shireen MCV (RBC) [Entitic vol] 91.0 fL Normal 81.0-99.0 [facility] Comment on above: Performed By: #### C BC ####[facility] Nsscxyseam[address] [place], [place] [phone] Shireen Monocytes (Bld) [#/Vol] 1.0 103/ul Critically high 0.3-0.8 [facility] Comment on above: Performed By: #### C BC ####[facility] Zcruebyhuy[address] [place], [place] [phone] Shireen Monocytes/100 WBC (Bld) 6.1 % Normal 1.7-12.0 [facility] Comment on above: Performed By: #### C BC ####[facility] [address]wvzfmow[address] [place], [place] [phone] Shireen Neutrophils (Bld) [#/Vol] 14.5 103/ul Critically high 1.4-6.5 [facility] Comment on above: Performed By: #### C BC ####[facility] Lkyahulsuk[address] [place], [place] [phone] Iyer Neutrophils/100 WBC (Bld) 85.2 % Critically high 43.0-75.0 The [facility] Comment on above: Performed By: #### C BC ####[facility] Prxsomr[address] [place] [address]ItllwaJasmin Iyer Platelet mean volume (Bld) [Entitic vol] 9.4 fL Critically low 9.5-13.5 [facility] Comment on above: Performed By: #### C BC ####[facility] Adtgqbcjvi4083 [place], [place] [address]Zroyne Karen Platelets (Bld) [#/Vol] 257 103/ul Normal 150-450 [facility] Comment on above: Performed By: #### C BC ####[facility] Lwngvowobq0786 [place], [place] [address]Rryzql Karen RBC (Bld) [#/Vol] 4.46 106/ul Normal 4.20-5.40 [facility] Comment on above: Performed By: #### C BC ####[facility] Yavnpmyfwt1852 [place], [place] [address]Mkjqfu Shireen WBC (Bld) [#/Vol] 17.0 103/ul Critically high 4.0-11.0 [facility] Comment on above: Performed By: #### C BC ####[facility] Avzeljwvlt1317 [place], [place] [address] ABD/PELV W CONon 01-27-[address] ABD/PELV W CON EXAM: CT ABD/PELV W CON HISTORY: NAUSEA WITH VOMITING, UNSPECIFIED Acute chest pain, nausea COMPARISON: None. TECHNIQUE: Contiguous axial CT images of the abdomen and pelvis obtained after administration of 100 mL of Omnipaque 350 intravenous contrast. Coronal and sagittal reconstructions were performed. Dose reduction techniques were achieved by using automated exposure control and/or adjustment of mA and/or kV according to patient size and/or use of iterative reconstruction technique. FINDINGS: Cholecystectomy changes noted. The liver, pancreas, spleen, and adrenal glands are without acute finding. Kidneys are normal in size and appearance without obstruction. There are bilateral nonobstructing renal stones. Normal caliber of the ureters down to the bladder. The bladder is within normal limits. There is no free intraperitoneal air or fluid. There is no bowel wall thickening, obstruction, or inflammatory changes in the abdomen. The appendix is normal. There is no appendicolith. No concerning lymphadenopathy. There is a prominent fatty umbilical hernia measuring 4.5 cm. The aorta is normal in caliber throughout, with no evidence of aneurysm or dissection. The skeletal structures demonstrate no acute or concerning abnormality. Right hip prosthesis demonstrated. IMPRESSION: 1. No acute findings in the abdomen or pelvis. 2. Bilateral nonobstructing renal stones. 3. Prominent fatty umbilical hernia. Electronically authenticated by: LINDA PUCKETT Date: 2020-01-26 23:08 Normal [facility] CTA CHEST WO W CONon 020 CTA CHEST WO W CON EXAM: CTA CHEST WO W CON HISTORY: Acute chest pain COMPARISON: None. TECHNIQUE: Contiguous axial CT images of the chest obtained after administration of 100 mL of Omnipaque 350 intravenous contrast. Coronal and sagittal reconstructions were performed. Dose reduction techniques were achieved by using automated exposure control and/or adjustment of mA and/or kV according to patient size and/or use of iterative reconstruction technique. FINDINGS: No filling defects are noted within the pulmonary arteries to suggest the presence of an embolus. Lungs are hypoinflated with patchy atelectatic changes. There is no pleural effusion, consolidation or acute infiltrate. There is no evidence an interstitial lung disease. The major airway is patent. There is no axillary, hilar or mediastinal adenopathy. There are granulomatous calcifications in the left hilum and mediastinum. No enhancing mediastinal masses. Normal appearance of the heart without pericardial effusion. No filling defects in the four chambers. Mild atherosclerosis of the aorta. Otherwise, normal appearance of the aorta and great vessels. The thyroid gland is unremarkable. There is no hiatal hernia. The visualized portion of the upper abdomen demonstrates no acute or concerning abnormality. IMPRESSION: 1. No pulmonary embolus. 2. No acute findings. Electronically authenticated by: LINDA PUCKETT Date: 2020-01-26 23:08 Normal [facility] LIVER PROFILEon 01-27-2020 Albumin [Mass/Vol] 3.5 g/dL Normal 3.5-5.0 [facility] Comment on above: Performed By: #### B MP, LIVER ####[facility] Sieqlotdho6990 [place] [phone] Shireen Albumin/Globulin [Mass ratio] 0.9 {ratio} Normal [facility] Comment on above: Performed By: #### B MP, LIVER ####[facility] Rwhffrwoqw1996 [place], [place] [address]Chxsip Shireen ALP [Catalytic activity/Vol] 81 U/L Normal 38-126 [facility] Comment on above: Performed By: #### B MP, LIVER ####[facility] Lwyxupjrom0045 [place] [phone] Shireen ALT [Catalytic activity/Vol] 27 U/L Normal 9-52 [facility] Comment on above: Performed By: #### B MP, LIVER ####[facility] Hiyyozybfr5710 [place] [phone] Shireen AST [Catalytic activity/Vol] 32 U/L Normal 14-36 [facility] Comment on above: Performed By: #### B MP, LIVER ####[facility] Uovxaqzipd3772 [place] [phone] Shireen BILI, CONJUGATED 0.1 mg/dL Normal 0.0-0.3 [facility] Comment on above: Performed By: #### B MP, LIVER ####[facility] O[address]rlyjz[address] [place], [place] [address]Gerken Shireen Bilirubin Ql (U) 0.4 mg/dL Normal 0.2-1.3 [facility] Comment on above: Performed By: #### B MP, LIVER ####[facility] Hdgmjboqad[address] [place], [place] [address]Gerken Shireen Globulin (S) [Mass/Vol] 3.7 g/dL Normal [facility] Comment on above: Performed By: #### B MP, LIVER ####[facility] Gthrkeqjit[address] [place], [place] [address]Gerken Shireen Protein [Mass/Vol] 7.2 g/dL Normal 6.1-8.2 [facility] Comment on above: Performed By: #### B MP, LIVER ####[facility] Ytojjgebnd[address] [place], [place] [address]Gerken Shireen PROF CHEM 8 (BAS METB)on Anion gap [Moles/Vol] 8.7 mmol/L Normal [facility] Comment on above: Performed By: #### B MP ####[facility] Jhekzxgzuz[address] [place], [place] [address]Gerken Shireen Calcium [Mass/Vol] 8.7 mg/dL Normal 8.4-10.2 [facility] Comment on above: Performed By: #### B MP ####[facility] Euvencksck9989 [place], [place] [address]Udpocj Shireen Chloride [Moles/Vol] 100 mmol/L Normal 98-107 [facility] Comment on above: Performed By: #### B MP ####[facility] Ppywfujjtt4294 [place], [place] [address]Iivxfb Shireen CO2 [Moles/Vol] 31.4 mmol/L Critically high 22.0-30.0 [facility] Comment on above: Performed By: #### B MP ####[facility] Gtfjbdsoga0276 [place], [place] [address]Umrhiw Shireen Creatinine [Mass/Vol] 0.64 mg/dL Normal 0.52-1.04 [facility] Comment on above: Performed By: #### B MP ####[facility] Pnncrrbbqy[address] [place] [address]Vitdyn Shireen EGFR-AF GRE[place]IC >60 Normal >=60 [facility] Comment on above: Performed By: #### B MP ####[facility] T[address]znsqxrv[address] [place], [place] [address]Gerken Shireen EGFR-NON AF [place]IC >60 Normal >=60 [facility] Comment on above: Performed By: #### B MP ####[facility] Hmryjbqdty[address] [place], [place] [address]Gerken Shireen Glucose [Mass/Vol] 107 mg/dL Critically high 74-106 [facility] Comment on above: Performed By: #### B MP ####[facility] Niqsthrghu[address] [place], [place] [address]Gerken Shireen Potassium [Moles/Vol] 3.1 mmol/L Critically low 3.4-5.0 [facility] Comment on above: Performed By: #### B MP ####[facility] Ojeebntgcp[address] [place], [place] [address]Gerken Shireen Sodium [Moles/Vol] 137 mmol/L Normal 137-145 [facility] Comment on above: Performed By: #### B MP ####[facility] Enforifscp[address] [place], [place] [address]Gerken Shireen Urea nitrogen [Mass/Vol] 17.0 mg/dL Normal 7.0-17.0 [facility] Comment on above: Performed By: #### B MP ####[facility] Hvlixdflqt6027 [place], [place] [address]Bcdzzs Shireen Urea nitrogen/Creatinine [Mass ratio] 26.6 mg/mg Normal [facility] Comment on above: Performed By: #### B MP ####[facility] Ysvnuwgabl0312 [place], [place] [address]Mfjbzg Shireen Anion gap [Moles/Vol] 6.2 mmol/L Normal [facility] Comment on above: Performed By: #### B MP, LIVER ####[facility] Vzqmbmdbji4488 [place], [place] [address]Eplydi Shireen Calcium [Mass/Vol] 8.9 mg/dL Normal 8.4-10.2 [facility] Comment on above: Performed By: #### B MP, LIVER ####[facility] Zmhxmtvear[address] [place], [place] [address]Gerken Shireen Chloride [Moles/Vol] 99 mmol/L Normal 98-107 [facility] Comment on above: Performed By: #### B MP, LIVER ####[facility] Eeyvxwbxnn1553 [place] [phone] Shireen CO2 [Moles/Vol] 32.7 mmol/L Critically high 22.0-30.0 [facility] Comment on above: Performed By: #### B MP, LIVER ####[facility] Lbolpvhbmc9869 [place], [place] [address]Swewej Shireen Creatinine [Mass/Vol] 0.83 mg/dL Normal 0.52-1.04 [facility] Comment on above: Performed By: #### B MP, LIVER ####[facility] Hejinpxegd2401 [place], [place] [address]Fstrrm Shireen EGFR-AF GRE[place]IC >60 Normal >=60 [facility] Comment on above: Performed By: #### B MP, LIVER ####[facility] Kuckhakinu9010 [place], [place] [address]Nccgyd Shireen EGFR-NON AF [place]IC >60 Normal >=60 [facility] Comment on above: Performed By: #### B MP, LIVER ####[facility] Qdrdsvjpuu9962 [place], [place] [address]Jescyv Shireen Glucose [Mass/Vol] 116 mg/dL Critically high 74-106 [facility] Comment on above: Performed By: #### B MP, LIVER ####[facility] Gumthjcdws6345 [place] [phone] Shireen Potassium [Moles/Vol] 2.9 mmol/L Critically low 3.4-5.0 [facility] Comment on above: Result Comment: test repeated critical value verified Performed By: #### B MP, LIVER ####[facility] Jgacrvdsmr4752 [place] [phone] Shireen Sodium [Moles/Vol] 135 mmol/L Critically low 137-145 [facility] Comment on above: Performed By: #### B MP, LIVER ####[facility] Tuyzwckxgt4664 [place] [phone] Shireen Urea nitrogen [Mass/Vol] 20.0 mg/dL Critically high 7.0-17.0 [facility] Comment on above: Performed By: #### B MP, LIVER ####[facility] Atbhjpdpec3767 [place] [phone] Shireen Urea nitrogen/Creatinine [Mass ratio] 24.1 mg/mg Normal [facility] Comment on above: Performed By: #### B MP, LIVER ####[facility] Eietwphkle6106 [place], [place] [address]Qjxahs Shireen XR CHEST 1 Von 01-27-2020 XR CHEST 1 V XR CHEST 1 V 01/26/2020 6:52 AM EDT Indication: Chest pain and nausea Technique: Portable AP radiograph of the chest was obtained. Comparison: None. Findings: The lungs are hypoinflated. There are moderate diffuse vascular congestive changes with trace edema and probable small effusions with atelectasis. No acute rib fractures, pneumothorax or mediastinal shift. No focal consolidative change. Heart is large in size. Impression: CHF versus pneumonitis. Electronically authenticated by: LINDA PUCKETT Date: 2020-01-26 23:08 Normal [facility] CARDIAC EVE ADMITon 020 CK [Catalytic activity/Vol] 71 U/L Normal 30-135 The [facility] Comment on above: Performed By: #### C UNIQUE POTTER, LIPA #### [facility] [address] [place] [address] Jasmin Shireen CK.MB [Mass/Vol] 3.48 ng/mL Critically high <=2.37 [facility] Comment on above: Result Comment: test repeated critical value verified Performed By: #### C ABBEY, UNIQUE, LIPA #### [facility] [address] [place] [address] Jasmin Shireen INR Coag (Bld) [Relative time] SEE BELOW Normal The [facility] Comment on above: Result Comment: <0.0 34 ng/ml NEGATIVE 0.034-0.119 INDETERMINATE 0.120 AMI CUT OFF Performed By: #### C ABBEY, CMAIGLESIA, LIPA #### [facility] [address] [place] [address] Jasmin Shireen AYAN 110.0 ng/mL Critically high <=61.5 The [facility] Comment on above: Performed By: #### C ABBEY, CMAIGLESIA, LIPA #### [facility] [address] [place] [address] Jasmin Shireen TROP <0.012 Normal <=0.034 [facility] Comment on above: Performed By: #### C MP, CMAIGLESIA, LIPA #### [facility] [address] [place] [address] Jasmin Shireen CBC AUTO DIFFon 01-26-2020 Basophils (Bld) [#/Vol] 0.0 103/ul Normal 0.0-0.1 [facility] Comment on above: Performed By: #### C BC #### [facility] [address] [place], [place] [id number] Jasmin Shireen Basophils/100 WBC (Bld) 0.1 % Critically low 0.2-2.0 [facility] Comment on above: Performed By: #### C BC #### [facility] [address] [place] [address] Jasmin Shireen Eosinophils (Bld) [#/Vol] 0.0 103/ul Normal 0.0-0.7 [facility] Comment on above: Performed By: #### C BC #### [facility] [address] [place] [address] Jasmin Shireen Eosinophils/100 WBC (Bld) 0.0 % Critically low 0.9-7.0 [facility] Comment on above: Performed By: #### C BC #### [facility] [address] [place] [address] Jasmin Shireen Erythrocyte distribution width (RBC) [Ratio] 13.9 % Normal 11.0-15.0 [facility] Comment on above: Performed By: #### C BC #### [facility] [address] [place] [address] Jsamin Shireen Hematocrit (Bld) [Volume fraction] 43.6 % Normal 36.0-48.0 [facility] Comment on above: Performed By: #### C BC #### [facility] [address] [place] [address] Jasmin Shireen Hemoglobin (Bld) [Mass/Vol] 14.3 g/dL Normal 12.0-16.0 [facility] Comment on above: Performed By: #### C BC #### [facility] [address] [place] [address] Jasmin Shireen IG # 0.00 10e3/ul Normal 0.00-0.03 [facility] Comment on above: Performed By: #### C BC #### [facility] [address] [place] [address] Jasmin Shireen IG % 0.5 % Normal 0.0-0.5 [facility] Comment on above: Performed By: #### C BC #### [facility] [address] [place] [address] Jasmin Shireen Lymphocytes (Bld) [#/Vol] 1.2 103/ul Normal 1.2-3.8 [facility] Comment on above: Performed By: #### C BC #### [facility] [address] [place] [address] Jasmin Iyer Lymphocytes/100 WBC (Bld) 8.9 % Critically low 20.5-60.0 [facility] Comment on above: Performed By: #### C BC #### [facility] [address] [place] [address] Jasmin Iyer MANUAL DIFF REQ NO Normal The [facility] Comment on above: Performed By: #### C BC #### [facility] [address] [place], [place] [id number] Jasmin Iyer MCH (RBC) [Entitic mass] 29.5 pg Normal 26.7-34.0 [facility] Comment on above: Performed By: #### C BC #### [facility] [address] [place] [address] Jasmin Iyer MCHC (RBC) [Mass/Vol] 32.8 g/dL Normal 29.9-35.2 [facility] Comment on above: Performed By: #### C BC #### [facility] [address] [place] [address] Jasminmichael Iyer MCV (RBC) [Entitic vol] 90.1 fL Normal 81.0-99.0 [facility] Comment on above: Performed By: #### C BC #### [facility] [address] [place] [address] Jasmin Iyer Monocytes (Bld) [#/Vol] 0.2 103/ul Critically low 0.3-0.8 [facility] Comment on above: Performed By: #### C BC #### [facility] [address] [place] [address] Jasmin Iyer Monocytes/100 WBC (Bld) 1.9 % Normal 1.7-12.0 [facility] Comment on above: Performed By: #### C BC #### [facility] [address] [place], [place] [id number] Jasminmichael Iyer Neutrophils (Bld) [#/Vol] 12.5 103/ul Critically high 1.4-6.5 [facility] Comment on above: Performed By: #### C BC #### [facility] [address] [place] [address] Jasmin Iyer Neutrophils/100 WBC (Bld) 88.6 % Critically high 43.0-75.0 [facility] Comment on above: Performed By: #### C BC #### [facility] [address] [place], [place] [id number] Jasmin Iyer Platelet mean volume (Bld) [Entitic vol] 9.3 fL Critically low 9.5-13.5 [facility] Comment on above: Performed By: #### C BC #### [facility] [address] [place], [place] [id number] Jasmin Iyer Platelets (Bld) [#/Vol] 286 103/ul Normal 150-450 [facility] Comment on above: Performed By: #### C BC #### [facility] [address] [place], [place] [id number] Jasmin Iyer RBC (Bld) [#/Vol] 4.84 106/ul Normal 4.20-5.40 [facility] Comment on above: Performed By: #### C BC #### [facility] [address] [place], [place] [id number] Jasmin Iyer WBC (Bld) [#/Vol] 13.7 103/ul Critically high 4.0-11.0 [facility] Comment on above: Performed By: #### C BC #### [facility] [address] [place], [place] [id number] Jasmin Iyer LIPASEon 01-26-2020 Lipase [Catalytic activity/Vol] 63.0 U/L Normal 23.0-300.0 [facility] Comment on above: Performed By: #### C MP, CMADM, LIPA #### [facility] [address] [place], [place] [id number] Jasminmichael Huaen PROF 14(COMP METB)on 020 Albumin [Mass/Vol] 3.8 g/dL Normal 3.5-5.0 [facility] Comment on above: Performed By: #### C MP, CMADM, LIPA #### [facility] [address] [place], [place] [id number] Jasmin Iyer Albumin/Globulin [Mass ratio] 0.9 {ratio} Normal [facility] Comment on above: Performed By: #### C MP, CMADM, LIPA #### [facility] [address] [place] [address] Jasmin Shireen ALP [Catalytic activity/Vol] 90 U/L Normal 38-126 [facility] Comment on above: Performed By: #### C MP, CMADM, LIPA #### [facility] [address] [place] [address] Jasmin Shireen ALT [Catalytic activity/Vol] 21 U/L Normal 9-52 [facility] Comment on above: Performed By: #### C MP, CMADM, LIPA #### [facility] [address] [place] [address] Jasmin Shireen Anion gap [Moles/Vol] 14.6 mmol/L Normal [facility] Comment on above: Performed By: #### C MP, CMADM, LIPA #### [facility] [address] [place] [address] Jasmin Shireen AST [Catalytic activity/Vol] 11 U/L Critically low 14-36 [facility] Comment on above: Performed By: #### C MP, CMADM, LIPA #### [facility] [address] [place] [address] Jasmin Shireen Bilirubin Ql (U) 0.3 mg/dL Normal 0.2-1.3 [facility] Comment on above: Performed By: #### C MP, CMADM, LIPA #### [facility] [address] [place] [address] Jasmin Shireen Calcium [Mass/Vol] 9.5 mg/dL Normal 8.4-10.2 [facility] Comment on above: Performed By: #### C MP, CMADM, LIPA #### [facility] [address] [place] [address] Jasmin Shireen Chloride [Moles/Vol] 95 mmol/L Critically low 98-107 [facility] Comment on above: Performed By: #### C MP, CMADM, LIPA #### [facility] [address] [place] [address] Jasmin Shireen CO2 [Moles/Vol] 29.7 mmol/L Normal 22.0-30.0 [facility] Comment on above: Performed By: #### C MP, CMADM, LIPA #### [facility] [address] [address] Jasmin Shireen Creatinine [Mass/Vol] 0.89 mg/dL Normal 0.52-1.04 [facility] Comment on above: Performed By: #### C MP, CMADM, LIPA #### [facility] [address] [address] Jasmin Shireen EGFR-AF GRE[place]LANDIC >60 Normal >=60 [facility] Comment on above: Performed By: #### C MP, CMADM, LIPA #### [facility] [address] [address] Jasmin Shireen EGFR-NON AF [place] >60 Normal >=60 The [facility] Comment on above: Performed By: #### C MP, CMADM, LIPA #### [facility] [address] [address] Jasmin Shireen Globulin (S) [Mass/Vol] 4.3 g/dL Normal [facility] Comment on above: Performed By: #### C MP, CMADM, LIPA #### [facility] [address] [address] Jasmin Shireen Glucose [Mass/Vol] 173 mg/dL Critically high 74-106 [facility] Comment on above: Performed By: #### C MP, CMADM, LIPA #### [facility] [address] [address] Jasmin Shireen Potassium [Moles/Vol] 3.3 mmol/L Critically low 3.4-5.0 [facility] Comment on above: Performed By: #### C MP, CMADM, LIPA #### [facility] [address] [address] Jasmin Shireen Protein [Mass/Vol] 8.1 g/dL Normal 6.1-8.2 [facility] Comment on above: Performed By: #### C MP, CMADM, LIPA #### [facility] [address] [address] Jasmin Shireen Sodium [Moles/Vol] 136 mmol/L Critically low 137-145 Th e [facility] Comment on above: Performed By: #### C ABBEY, CMAIGLESIA, LIPA #### [facility] [address] [place] [address] Jasmin Shireen Urea nitrogen [Mass/Vol] 17.0 mg/dL Normal 7.0-17.0 [facility] Comment on above: Performed By: #### C ABBEY, UNIQUE, LIPA #### [facility] [address] [place] [address] Jasmin Shireen Urea nitrogen/Creatinine [Mass ratio] 19.1 mg/mg Normal [facility] Comment on above: Performed By: #### C ABBEY, UNIQUE, LIPA #### [facility] [address] [place] [address] Jasmin Shireen RESPIRATORY PANEL PLUSon Adenovirus NOT DETECTED Normal NOT DETECTED [facility] Comment on above: Performed By: #### R SPLUS #### [facility] [address] [place] [address] Jasmin Shireen B. Parapertusis NOT DETECTED Normal NOT DETECTED [facility] Comment on above: Performed By: #### R SPLUS #### [facility] [address] [place] [address] Jasmin Shireen B. Pertussis NOT DETECTED Normal NOT DETECTED [facility] Comment on above: Performed By: #### R SPLUS #### [facility] [address] [place] [address] Jasmin Shireen Chlamydia Pneumoniae NOT DETECTED Normal NOT DETECTED The [facility] Comment on above: Performed By: #### R SPLUS #### [facility] [address] [place] [address] Jasmin Shireen Coronavirus 229E NOT DETECTED Normal NOT DETECTED The [facility] Comment on above: Performed By: #### R SPLUS #### [facility] [address] [place] [address] Jasmin Shireen Coronavirus HKU1 NOT DETECTED Normal NOT DETECTED The [facility] Comment on above: Performed By: #### R SPLUS #### [facility] [address] [place] [address] Jasmin Shireen Coronavirus NL63 NOT DETECTED Normal NOT DETECTED The [facility] Comment on above: Performed By: #### R SPLUS #### [facility] [address] [place] [address] Jasmin Shireen Coronavirus OC43 NOT DETECTED Normal NOT DETECTED The [facility] Comment on above: Performed By: #### R SPLUS #### [facility] [address] [place] [address] Jasmin Shireen Influenza A H1 2009 NOT DETECTED Normal NOT DETECTED [facility] Comment on above: Performed By: #### R SPLUS #### [facility] [address] [place] [address] Jasmin Shireen Influenza B NOT DETECTED Normal NOT DETECTED [facility] Comment on above: Performed By: #### R SPLUS #### [facility] [address] [place] [address] Jasmin Shireen Metapneumovirus NOT DETECTED Normal NOT DETECTED The [facility] Comment on above: Performed By: #### R SPLUS #### [facility] [address] [place] [address] Jasmin Shireen Mycoplas. Pneumoniae NOT DETECTED Normal NOT DETECTED The [facility] Comment on above: Performed By: #### R SPLUS #### [facility] [address] [place] [address] Jasmin Shireen Parainfluenza 1 NOT DETECTED Normal NOT DETECTED [facility] Comment on above: Performed By: #### R SPLUS #### [facility] [address] [place] [address] Jasmin Shireen Parainfluenza 2 NOT DETECTED Normal NOT DETECTED [facility] Comment on above: Performed By: #### R SPLUS #### [facility] [address] [place] [address] Jasmin Shireen Parainfluenza 3 NOT DETECTED Normal NOT DETECTED [facility] Comment on above: Performed By: #### R SPLUS #### [facility] [address] [place] [address] Jasmin Shireen Parainfluenza 4 NOT DETECTED Normal NOT DETECTED [facility] Comment on above: Performed By: #### R SPLUS #### [facility] [address] [place] [address] Jasmin Shireen Rhino/Enterovirus NOT DETECTED Normal NOT DETECTED [facility] Comment on above: Performed By: #### R SPLUS #### [facility] [address] [place] [address] Jasmin Shireen RP2 Header 1 RESPIRATORY PANEL: VIRUSES Normal The [facility] Comment on above: Performed By: #### R SPLUS #### [facility] [address] [place] [address] Jasmin Shireen RP2 Header 2 RESPIRATORY PANEL: BACTERIA Normal The [facility] Comment on above: Performed By: #### R SPLUS #### [facility] [address] [place] [address] Jasmin Shireen RP2 Header 4 EUA SEE BELOW Normal [facility] Comment on above: Result Comment: This test is not yet approved or cleared by the [place] FDA. When there are no FDA-approved or cleared tests available, and other criteria are met, FDA can make tests available under an emergency access mechanism called an Emergency Use Authorization (EUA). The EUA for this test is supported by the [place] of Health and Human Service?s (HHS?s) declaration that circumstances exist to justify the emergency use of in vitro diagnostics for the detection and/or diagnosis of the virus that causes COVID-19. This EUA will remain in effect (meaning this test can be used) for the duration of the COVID-19 declaration justifying emergency of IVDs, unless it is terminated or revoked by FDA (after which the test may no longer be used). Performed By: #### R SPLUS #### [facility] [address] [place] [address] Jasmin Shireen RSV NOT DETECTED Normal NOT DETECTED [facility] Comment on above: Performed By: #### R SPLUS #### [facility] [address] [place] [address] Jasmin Shireen SARS-CoV-2: COVID-19 NOT DETECTED Normal NOT DETECTED The [facility] Comment on above: Performed By: #### R SPLUS #### [facility] [address] [place] [address] Jasmin Shireen UA RANDOMon 01-26-2020 Bilirubin [Mass/Vol] Negative Normal NEGATIVE The [facility] Comment on above: Performed By: #### U MICRO, UA #### [facility] [address] [place] [address] Jasmin Shireen BLOOD Negative Normal NEGATIVE The [facility] Comment on above: Performed By: #### U MICRO, UA #### [facility] [address] [place] [address] Jasmin Shireen Clarity (U) CLEAR Normal [facility] Comment on above: Performed By: #### U MICRO, UA #### [facility] [address] [place] [address] Jasmin Shireen Color (U) LT. YELLOW Normal YELLOW [facility] Comment on above: Performed By: #### U MICRO, UA #### [facility] [address] [place] [address] Jasmin Shireen Glucose [Mass/Vol] Negative Normal NEGATIVE [facility] Comment on above: Performed By: #### U MICRO, UA #### [facility] [address] [place] [address] Jasmin Shireen Ketones Ql (U) Negative Normal NEGATIVE [facility] Comment on above: Performed By: #### U MICRO, UA #### [facility] [address] [place] [address] Jasmin Shireen Nitrite Ql (U) Negative Normal NEGATIVE [facility] Comment on above: Performed By: #### U MICRO, UA #### [facility] [address] [place] [address] Jasmin Shireen pH (Bld) 7.5 Normal 5-9 [facility] Comment on above: Performed By: #### U MICRO, UA #### [facility] [address] [place] [address] Jasmin Shireen Protein [Mass/Vol] Negative Normal [facility] Comment on above: Performed By: #### U MICRO, UA #### [facility] [address] [address] Jasminmichael Iyer SPEC GRAVITY 1.010 Normal 1.005-<=1.025 [facility] Comment on above: Performed By: #### U MICRO, UA #### [facility] [address] [id number] Jasmin Shireen Urobilinogen Qn (U) 0.2 EU/dl Normal [facility] Comment on above: Performed By: #### U MICRO, UA #### [facility] [address] [place] [address] Jasmin Shireen WBC (Bld) [#/Vol] Negative Normal NEGATIVE [facility] Comment on above: Performed By: #### U MICRO, UA #### [facility] [address] [place] [address] Jasmin Shireen URINE MICROSCOPIC ONLYon Bacteria LM.HPF (Urine sed) [#/Area] NONE SEEN Normal NONE SEEN [facility] Comment on above: Performed By: #### U MICRO, UA #### [facility] [address] [place] [address] Jasmin Shireen CAST NONE SEEN Normal NONE SEEN [facility] Comment on above: Performed By: #### U MICRO, UA #### [facility] [address] [place] [address] Jasmin Shireen Crystals LM Nom (Urine sed) NONE SEEN Normal NONE SEEN [facility] Comment on above: Performed By: #### U MICRO, UA #### [facility] [address] [address] Jasmin Shireen CULTURE NOT INDICATED Normal [facility] Comment on above: Performed By: #### U MICRO, UA #### [facility] [address] [place] [address] Jasmin Shireen Epithelial cells LM.HPF (Urine sed) [#/Area] NONE SEEN Normal [facility] Comment on above: Performed By: #### U MICRO, UA #### [facility] [address] [address] Jasmin Iyer MUCOUS NONE SEEN Normal NONE SEEN The [facility] Comment on above: Performed By: #### U MICRO, UA #### [facility] [address] [place], [place] [address] Jasmin Iyer RBC (U) [#/Vol] NONE SEEN Normal 0-2 [facility] Comment on above: Performed By: #### U MICRO, UA #### [facility] [address] [place], [place] [address] Jasmin Iyer WBC (Bld) [#/Vol] NONE SEEN Normal NONE SEEN The [facility] Comment on above: Performed By: #### U MICRO, UA #### [facility] [address] [place], [place] [address] Jasmin Huaen Vital Signs Date Time Vital Sign Value Performing Clinician Facility 08-23-2024 12:21-0400 Body height 149.86 cm [facility] 08-23-2024 12:17-0400 Body temperature 98.1 [degF] [facility] 08-23-2024 12:17-0400 Diastolic blood pressure 91 mm[Hg] [facility] 08-23-2024 12:17-0400 Heart rate 74 /min [facility] 08-23-2024 12:17-0400 Respiratory rate 16 /min [facility] 08-23-2024 12:17-0400 SaO2% (BldA) [Mass fraction] 95 % [facility] 08-23-2024 12:17-0400 Systolic blood pressure 199 mm[Hg] [facility] 05-18-2024 11:36-0500 Diastolic blood pressure 74 mm[Hg] Radha Rajan OVEN OPERATOR Work Phone: [facility] 05-18-2024 11:36-0500 Systolic blood pressure 134 mm[Hg] Radha Rajan OVEN OPERATOR Work Phone: [facility] 05-18-2024 11:09-0500 Body mass index (BMI) [Ratio] 53.75 kg/m2 Radha Rajan OVEN OPERATOR Work Phone: [facility] 05-18-2024 11:09-0500 Body weight 112.67 kg Radha Mohini OVEN OPERATOR Work Phone: [facility] 05-18-2024 11:09-0500 Heart rate 72 /min Radha Rajan OVEN OPERATOR Work Phone: [facility] 05-12-2024 15:15-0500 Body mass index (BMI) [Ratio] 51.94 kg/m2 Domingo Laurent MD Work Phone: [facility] 05-12-2024 15:15-0500 Body weight 108.86 kg Domingo Laurent MD Work Phone: [facility] 03-17-2024 11:58-0400 Body height 144.8 cm Domingo Laurent MD Work Phone: [facility] 03-17-2024 11:58-0400 Body mass index (BMI) [Ratio] 53.23 kg/m2 Domingo Laurent MD Work Phone: [facility] 03-17-2024 11:58-0400 Body weight 111.58 kg Domingo Laurent MD Work Phone: [facility] 03-17-2024 11:58-0400 Diastolic blood pressure 82 mm[Hg] Domingo Laurent MD Work Phone: [facility] 03-17-2024 11:58-0400 Systolic blood pressure 118 mm[Hg] Domingo Laurent MD Work Phone: [facility] 2024 09:11-0400 Body height 144.8 cm Radha Rajan OVEN OPERATOR Work Phone: [facility] 2024 09:11-0400 Body mass index (BMI) [Ratio] 53.23 kg/m2 Radhaalexandria Falconel OVEN OPERATOR Work Phone: [facility] 2024 09:11-0400 Body weight 111.58 kg Radha Rajan OVEN OPERATOR Work Phone: [facility] 2024 09:11-0400 Diastolic blood pressure 84 mm[Hg] Radha Rajan NP Work Phone: [facility] 2024 09:11-0400 Heart rate 76 /min Radha Rajan OVEN OPERATOR Work Phone: [facility] 2024 09:11-0400 Systolic blood pressure 146 mm[Hg] Radha Rajan OVEN OPERATOR Work Phone: [facility] 04-01-2022 12:58-0400 Body height 152.4 cm Leslie Paxton DO Work Phone: [facility] 04-01-2022 12:58-0400 Body weight 108.[address] [facility] Paxton DO Work Phone: [facility] 11-27-2021 14:30-0400 Body height 152.4 cm Paxton Felter Other [facility] Other 11-27-2021 14:30-0400 Body mass index (BMI) [Ratio] 48.23 kg/m2 Paxton Felter Other [facility] Other 11-27-2021 14:30-0400 Body weight 112.04 kg Paxton Felter Other [facility] Other 09-10-2021 10:30-0400 Body height 152.4 cm Paxton Felter Other [facility] Other 09-10-2021 10:30-0400 Body mass index (BMI) [Ratio] 48.23 kg/m2 Paxton Felter Other [facility] Other 09-10-2021 10:30-0400 Body weight 112.04 kg Paxton Felter Other [facility] Other 05-16-2021 11:45-0500 Body height 152.4 cm Paxton Felter Other [facility] Other 05-16-2021 11:45-0500 Body mass index (BMI) [Ratio] 48.82 kg/m2 Paxton Menendezvelma Other [facility] Other 05-16-2021 11:45-0500 Body weight 113.4 kg Paxton Menendezvelma Other [facility] Other 05-10-2021 15:00-0500 Body height 152.4 cm Shun Rodgers Other [facility] Other 05-10-2021 15:00-0500 Body mass index (BMI) [Ratio] 48.82 kg/m2 Shun Rodgers Other [facility] Other 05-10-2021 15:00-0500 Body weight 113.4 kg Shun Rodgers Other [facility] Other Encounters Encounter Date Encounter Type Care Provider Facility Start: 08-23-2024 End: 08-23-2024 ambulatory [facility] Work Phone: Start: 08-23-2024 End: 08-23-2024 Patient encounter procedure [facility] Work Phone: Start: 08-17-2024 End: 08-17-2024 ambulatory RADHA RAJAN Not Available Start: 08-12-2024 End: 08-12-2024 Quano flowsheet Domingo Laurent MD Work Phone: [facility] Start: 08-12-2024 End: 08-12-2024 Abhilash flowsheet Domingo Laurent MD Work Phone: [facility] Start: 08-12-2024 End: 08-12-2024 ambulatory DOMINGO LAURENT Not Available Start: 07-28-2024 End: 07-28-2024 Refill Radha Rajan OVEN OPERATOR Work Phone: [facility] Comment on above: Paresthesia of skin Start: 07-19-2024 End: 07-19-2024 Refill Radha Rajan OVEN OPERATOR Work Phone: [facility] Comment on above: Other chronic pain; Other spondylosis with radiculopathy, lumbar region; Other chronic pain; Other spondylosis with radiculopathy, lumbar region Start: 06-18-2024 End: 06-18-2024 Refill Radha Rajan OVEN OPERATOR Work Phone: [facility] Comment on above: Other chronic pain; Other spondylosis with radiculopathy, lumbar region; Other chronic pain; Other spondylosis with radiculopathy, lumbar region Start: 05-28-2024 End: 05-28-2024 Refill Yulia Moyer MD Work Phone: [facility] Comment on above: Paresthesia of skin Start: 05-18-2024 End: 05-18-2024 Bamboo flowsheet Radha Rajan OVEN OPERATOR Work Phone: [facility] Start: 05-18-2024 End: 05-18-2024 Bamboo flowsheet Radha Rajan OVEN OPERATOR Work Phone: [facility] Start: 05-18-2024 End: 05-18-2024 ambulatory RADHA RAJAN Not Available Start: 05-18-2024 End: 05-18-2024 Office outpatient visit 25 minutes Radha Rajan OVEN OPERATOR Work Phone: [facility] Comment on above: Essential hypertensi on (CMS/HCC) (Primary Dx); Other chronic pain; Other spondylosis with radiculopathy, lumbar region; Gait disturbance; Paresthesia of skin; Atherosclerosis of aorta (CMS/HCC); Moderate scoliosis; Impaired fasting glucose; Dyslipidemia (CMS/HCC); Mixed hyperlipidemia (CMS/HCC); Other chronic pain; Other spondylosis with radiculopathy, lumbar region Start: 05-12-2024 End: 05-12-2024 Clinical Support Domingo Laurent MD Work Phone: [facility] Comment on above: Carpal tunnel syndro me of left wrist (Primary Dx) Start: 05-12-2024 End: 05-12-2024 Bamboo flowsheet Domingo Laurent MD Work Phone: [facility] Start: 05-12-2024 End: 05-12-2024 Bamboo flowsheet Domingo Laurent MD Work Phone: [facility] Start: 04-16-2024 End: 04-16-2024 Refill Radha Rajan OVEN OPERATOR Work Phone: [facility] Comment on above: Other chronic pain; Other spondylosis with radiculopathy, lumbar region Start: 04-15-2024 End: 04-15-2024 Refill Radha Rajan OVEN OPERATOR Work Phone: [facility] Comment on above: Rhinitis, unspecifie d type Start: 04-14-2024 End: 04-14-2024 ambulatory RADHA RAJAN Not Available Start: 04-10-2024 End: 04-12-2024 Refill Domingo Laurent MD Work Phone: [facility] Comment on above: Carpal tunnel syndro me of left wrist Start: 03-30-2024 End: 03-30-2024 Refill Radha Rajan OVEN OPERATOR Work Phone: [facility] Comment on above: Paresthesia of skin Start: 03-18-2024 End: 03-18-2024 Refill Radha Rajan OVEN OPERATOR Work Phone: [facility] Comment on above: Other chronic pain; Other spondylosis with radiculopathy, lumbar region Start: 03-17-2024 End: 03-17-2024 Bamboo flowsheet Domingo Laurent MD Work Phone: [facility] Start: 03-17-2024 End: 03-17-2024 Bamboo flowsheet Domingo Laurent MD Work Phone: [facility] Start: 03-17-2024 End: 03-17-2024 Clinical Support Domingo Laurent MD Work Phone: [facility] Comment on above: Carpal tunnel syndro me of left wrist (Primary Dx) Start: 03-11-2024 End: 03-11-2024 Refill Radha Rajan NP Work Phone: [facility] Comment on above: Hypertension, unspec ified type (CMS/HCC) Start: 2024 End: 2024 Bamboo [employer] Know Bestheet Radha Rajan OVEN OPERATOR Work Phone: [facility] Start: 2024 End: 2024 [employer] Know Bestheet Radha Rajan OVEN OPERATOR Work Phone: [facility] Start: 2024 End: 2024 Patient encounter procedure Radha Rajan NP Work Phone: [facility] Comment on above: Medicare annual [facility] visit, subsequent (Primary Dx); Essential hypertension (CMS/HCC); Other spondylosis with radiculopathy, lumbar region; Atherosclerosis of aorta (CMS/HCC); Aortic valve stenosis, etiology of cardiac valve disease unspecified; Pulmonary fibrosis, unspecified (CMS/HCC); Dyslipidemia (CMS/HCC); Age-related osteoporosis without current pathological fracture (CMS/HCC); Mild episode of recurrent major depressive disorder (HCC) (CMS/HCC); Morbid obesity (CMS/HCC); Osteopenia, unspecified location; Cardiac hypertrophy; Other chronic pain; Impaired fasting glucose; Leukocytosis, unspecified type; S/P laparoscopic cholecystectomy; Gait disturbance; Primary localized osteoarthrosis of shoulder region, unspecified laterality; Moderate scoliosis; Left knee pain, unspecified chronicity; Renal calculus, bilateral; Gastroesophageal reflux disease, unspecified whether esophagitis present; Bilateral carpal tunnel syndrome; Paresthesia of skin; Ventricular hypertrophy determined by echocardiography; Diverticulosis; Uterovaginal prolapse; Right hip pain; Encounter for immunization; Screening mammogram for breast cancer; Other chronic pain; Other spondylosis with radiculopathy, lumbar region Start: 2024 End: 2024 ambulatory RADHA RAJAN Not Available Start: 02-05-2024 End: 02-06-2024 Refill Domingo Laurent MD Work Phone: [facility] Comment on above: Bilateral carpal grace moise syndrome Start: 01-28-2024 End: 01-28-2024 Refill Radha Rajan OVEN OPERATOR Work Phone: [facility] Comment on above: Paresthesia of skin Start: 01-14-2024 End: 01-14-2024 ambulatory DOMINGO LAURENT Not Available Start: 12-01-2023 End: 12-01-2023 ambulatory DOMINGO LAURENT Not Available Start: 11-10-2023 End: 11-10-2023 ambulatory DOMINGO LAURENT Not Available Start: 11-05-2023 End: 11-05-2023 ambulatory RADHAALEXANDRIA RAJAN Not Available Start: 07-04-2023 Refill Radha bejarano OVEN OPERATOR Work Phone: [facility] Comment on above: Paresthesia of skin Start: 04-01-2022 End: 04-01-2022 ambulatory LESLIE DEL CID Facility:[facility] Start: 04-01-2022 End: 04-01-2022 Patient encounter procedure Leslie Del Cid DO Work Phone: [facility] Comment on above: Spinal stenosis of l umbar region, unspecified whether neurogenic claudication present (Primary Dx) Start: 11-27-2021 End: 11-27-2021 ambulatory Paxton Cuellar Other [facility] Other Start: 11-27-2021 Office outpatient vi sit 25 minutes Paxton Cuellar [facility] Start: 10-31-2021 (Procedure) Short Paxton Cuellar [facility] Start: 10-31-2021 End: 10-31-2021 ambulatory Paxton Cuellar Other [facility] Other Start: 09-10-2021 End: 09-10-2021 ambulatory Paxton Menendezer Other [facility] Other Start: 09-10-2021 Office outpatient vi sit 25 minutes Paxton Cuellar [facility] Start: 06-13-2021 End: 06-13-2021 ambulatory Paxton Cuellar Other [facility] Other Start: 06-13-2021 Office outpatient vi sit 25 minutes Paxton Cuellar [facility] Start: 06-05-2021 (Procedure) Marlys Cuellar [facility] Start: 06-05-2021 End: 06-05-2021 ambulatory Paxton Cuellar Other [facility] Other Start: 05-16-2021 End: 05-16-2021 ambulatory Paxton Cuellar Other [facility] Other Start: 05-16-2021 Office outpatient vi sit 25 minutes Paxton Cuellar [facility] Start: 05-10-2021 End: 05-10-2021 ambulatory Shun Rodgers Other [facility] Other Start: 05-10-2021 Office outpatient ne w 30 minutes Shun Rodgers [facility] Start: 04-24-2021 End: 04-24-2021 ambulatory Paxton Cuellar Other [facility] Other Start: 04-24-2021 Encounter by vineet Cuellar [facility] Start: 04-24-2021 Office outpatient vi sit 25 minutes Paxton Cuellar [facility] Start: 04-04-2021 End: 04-04-2021 ambulatory Paxton Cuellar Other [facility] Other Start: 11-03-2021 Telephone encounter Paxton Felter [facility] Start: 03-27-2021 Office outpatient vi sit 25 minutes Paxton DAY [facility] Start: 01-26-2020 End: 01-30-2020 Evaluation and management of inpatient ALYSSA TOMAS Facility:[facility] Procedures Date Procedure Procedure Detail Performing Clinician Start: 04-14-2024 Mammography Radha Rajan NP Work Phone: Start: 03-20-2023 Mammography Radha Rajan OVEN OPERATOR Work Phone: Start: 07-14-2018 History of cholecystectomy S/P laparoscopic cholecystectomy Radha Rajan OVEN OPERATOR Work Phone: Start: 05-06-2016 Colonoscopy Radha Rajan NP Work Phone: History of cholecystectomy S/P laparoscopic cholecystectomy Radha Rajan OVEN OPERATOR Work Phone: Plan of Treatment Date Care Activity Detail Author Start: 05-06-2026 Screening for malign ant neoplasm of colon [facility] Start: 04-14-2025 Screening for malign ant neoplasm of breast Mammogram [facility] Start: 02-03-2025 Urine screening for protein Diabetes: Urine Protein Screening [facility] Start: 08-17-2024 End: 08-17-2024 Patient encounter procedure 08/17/2024 11:00 AM EDT Office Visit [facility] [address] [place] [id number] Radha Rajan NP [address] [place] [address] [facility] Start: 08-12-2024 End: 08-12-2024 Clinical Support [facility] Comment on above: Arrived Start: 05-18-2024 End: 05-18-2024 Patient encounter procedure 05/18/2024 11:00 AM EST Office Visit [facility] [address] [place] [phone] Radha Rajan NP [address] [place] [address] [facility] Start: 05-12-2024 End: 05-12-2024 Clinical Support [facility] Comment on above: Arrived Start: 05-05-2024 Hemoglobin A1c measurement Diabetes: Hemoglobin A1C [facility] Start: 04-14-2024 End: 04-14-2024 Professional / ancillary services management 04/14/2024 11:00 AM EST Ancillary Procedure [facility] [address] [place] [phone] [facility] Start: 03-22-2024 End: 04-18-2025 DBT Breast - bilateral screening Bilateral screening mammogram with tomosynthesis Imaging Routine Screening mammogram for breast cancer Expected: 03/22/2024, Expires: 04/18/2025 [facility] Work Phone: Comment on above: Expected: 03/22/2024 , Expires: 04/18/2025 Start: 03-20-2024 Screening for malign ant neoplasm of breast Mammogram [facility] Start: 03-17-2024 End: 03-17-2024 Clinical Support [facility] Comment on above: Arrived Start: 2024 End: 2024 Patient encounter procedure [facility] Comment on above: Medicare annual [facility] visit, subsequent (Primary Dx); Essential hypertension ([facility]/HCC); Other spondylosis with radiculopathy, lumbar region; Atherosclerosis of aorta (CMS/HCC); Aortic valve stenosis, etiology of cardiac valve disease unspecified; Pulmonary fibrosis, unspecified (CMS/HCC); Dyslipidemia (CMS/HCC); Age-related osteoporosis without current pathological fracture (CMS/HCC); Mild episode of recurrent major depressive disorder (HCC) (CMS/HCC); Morbid obesity (CMS/HCC); Osteopenia, unspecified location; Cardiac hypertrophy; Other chronic pain; Impaired fasting glucose; Leukocytosis, unspecified type; S/P laparoscopic cholecystectomy; Gait disturbance; Primary localized osteoarthrosis of shoulder region, unspecified laterality; Moderate scoliosis; Left knee pain, unspecified chronicity; Renal calculus, bilateral; Gastroesophageal reflux disease, unspecified whether esophagitis present; Bilateral carpal tunnel syndrome; Paresthesia of skin; Ventricular hypertrophy determined by echocardiography; Calculus of gallbladder without cholecystitis without obstruction; Diverticulosis; Uterovaginal prolapse; Right hip pain Start: 02-01-2024 Influenza vaccination Influenza Vacc ine (#1) [facility] Start: 02-01-2024 Medicare Annual Well ness (AWV) Medicare Annual Wellness (AWV) [facility] Start: 01-25-2024 Urine screening for protein Diabetes: Urine Protein Screening [facility] Start: 08-01-2023 End: 08-01-2023 Patient encounter procedure 08/01/2023 1:00 PM EST Office Visit [facility] [address] [place] [phone] Radha Rajan NP [address] [place] [address] [facility] Start: 04-26-2023 Hemoglobin A1c measurement Diabetes: Hemoglobin A1C [facility] Start: 07-10-2021 COVID-19 VACCINE (5 - Booster for Moderna series) COVID-19 VACCINE (5 - Booster for Moderna series) [facility] Start: 06-02-2021 ADVANCE DIRECTIVE DISCUSSION ADVANCE DIRECTIVE DISCUSSION [facility] Start: 06-02-2021 DEPRESSION ASSESSMENT DEPRESSION ASS ESSMENT [facility] Start: 09-02-2019 Pneumococcal Vaccine : 65+ Years (3 - PPSV23 or PCV20) Pneumococcal Vaccine: 65+ Years (3 - PPSV23 or PCV20) [facility] Start: 09-02-2019 Pneumococcal Vaccine : 65+ Years (3 of 3 - PPSV23 or PCV20) Pneumococcal Vaccine: 65+ Years (3 of 3 - PPSV23 or PCV20) [facility] Start: 02-18-2016 BONE DENSITY BONE DENSITY [facility] Start: 02-18-2016 PNEUMOCOCCAL: 65+ (1 - PCV) PNEUMOCOCCAL: 65+ (1 - PCV) [facility] Start: 2001 SHINGRIX VACCINE (1 of 2) SHINGRIX VACCINE (1 of 2) [facility] Start: 02-18-1996 COLOGUARD (FIT-DNA) COLOGUARD (FIT-D NA) [facility] Start: 02-18-1996 Colonoscopy COLONOSCOPY [facility] Start: 02-18-1996 COLORECTAL CANCER SCREENING COLORECTAL CANCER SCREENING [facility] Start: 02-18-[address] COLONOGRAPHY [facility] Start: 02-18-1996 DIABETES SCREEN DIABETES SCREEN [facility] Start: 02-18-1996 FECAL OCCULT BLOOD FECAL OCCULT BLOO D [facility] Start: 02-18-1996 LIPID SCREEN LIPID SCREEN [facility] Start: 02-18-1996 SIGMOIDOSCOPY SIGMOIDOSCOPY [facility] Start: 1991 Mammography MAMMOGRAM [facility] Start: 1970 Urine microalbumin profile DTAP,TDAP,TD (1 - Tdap) [facility] Start: 1970 Urine screening for protein Diabetes: Urine Protein Screening [facility] Start: 1969 HEPATITIS C SCREENING HEPATITIS C SC REENING [facility] Start: 1961 Glaucoma screening Diabetes: R etinopathy Screening [facility] Start: 1950 Screening for malign ant neoplasm of colon [facility] Immunizations Immunization Date Immunization Notes Care Provider Fa [facility] 2024 influenza, high dose seasonal, preservative-free Radha Rajan OVEN OPERATOR Work Phone: [facility] 03-07-2023 Influenza, High-dose Seasonal, Quadrivalent, Preservative Free Radha Mohini OVEN OPERATOR Work Phone: [facility] 03-07-2023 influenza virus vacc ine, unspecified formulation Radha Rajan OVEN OPERATOR Work Phone: [facility] 02-20-2022 Influenza, High-dose Seasonal, Quadrivalent, Preservative Free Radha Mohini OVEN OPERATOR Work Phone: [facility] 04-04-2021 Pfizer Purple Cap SARS-CoV-2 Vaccination Radha Rajan OVEN OPERATOR Work Phone: [facility] 03-09-2021 Influenza, High-dose Seasonal, Quadrivalent, Preservative Free Radha Mohini OVEN OPERATOR Work Phone: [facility] 03-13-2020 influenza, injectabl e, quadrivalent, contains preservative Radha Mohini OVEN OPERATOR Work Phone: [facility] 03-01-2020 influenza, injectabl e, quadrivalent, preservative free Radha Mohini OVEN OPERATOR Work Phone: [facility] 06-04-2019 zoster vaccine recombinant Radha Mohini OVEN OPERATOR Work Phone: [facility] 03-30-2019 zoster vaccine recombinant Radha Mohini OVEN OPERATOR Work Phone: [facility] 03-14-2019 influenza, high dose seasonal, preservative-free Radha Mohini OVEN OPERATOR Work Phone: [facility] 03-14-2019 influenza, injectabl e, quadrivalent, preservative free Radha Mohini OVEN OPERATOR Work Phone: [facility] 05-05-2018 influenza, injectabl e, quadrivalent, contains preservative Radha Mohini OVEN OPERATOR Work Phone: [facility] 04-01-2018 influenza, high dose seasonal, preservative-free Radha Mohini OVEN OPERATOR Work Phone: [facility] 04-01-2018 influenza, injectabl e, quadrivalent, preservative free Radha Mohini OVEN OPERATOR Work Phone: [facility] 01-31-2017 influenza, injectabl e, quadrivalent, preservative free Radha Mohini OVEN OPERATOR Work Phone: [facility] 01-24-2017 influenza, high dose seasonal, preservative-free Radha Mohini OVEN OPERATOR Work Phone: [facility] 05-16-2016 pneumococcal conjuga te vaccine, 13 valent Radha Mohini OVEN OPERATOR Work Phone: [facility] 05-16-2016 tetanus toxoid, redu cuong diphtheria toxoid, and acellular pertussis vaccine, adsorbed Radha Mohini OVEN OPERATOR Work Phone: [facility] 03-25-2016 influenza, injectabl e, quadrivalent, preservative free Radha Mohini OVEN OPERATOR Work Phone: [facility] 03-20-2015 influenza, seasonal, injectable Radha Mohini OVEN OPERATOR Work Phone: [facility] 03-02-2015 influenza, injectabl e, madin niles canine kidney, preservative free Radha Mohini OVEN OPERATOR Work Phone: [facility] 03-02-2015 influenza, seasonal, injectable, preservative free Radha Mohini OVEN OPERATOR Work Phone: [facility] 09-01-2014 pneumococcal polysaccharide vaccine, 23 valent Radha Mohini OVEN OPERATOR Work Phone: [facility] 03-20-2014 influenza, seasonal, injectable Radha Mohini OVEN OPERATOR Work Phone: [facility] 02-12-2012 influenza, seasonal, injectable Radha Mohini OVEN OPERATOR Work Phone: [facility] 03-18-2011 influenza, seasonal, injectable Radha Mohini OVEN OPERATOR Work Phone: [facility] 03-14-2010 influenza, seasonal, injectable Radha Mohini OVEN OPERATOR Work Phone: [facility] 03-20-2009 influenza virus vacc ine, whole virus Radha Mohini OVEN OPERATOR Work Phone: [facility] Payers Date Payer Category Payer Medicaid [employer] MEDICARE A DVANTAGE [id number] 2021 Medicare [id number] 2021 Medicare [id number] 1959 Medicare [id number] 1950 Unknown [id number] 1950 Unknown [id number] 1950 Unknown [id number] 1950 Unknown [id number] 1950 Unknown [id number] 1951 Unknown [id number] 1951 Unknown [id number] 1950 Unknown [id number] 1950 Unknown [id number] 1950 Unknown [id number] 1950 Unknown [id number] 1950 Unknown [id number] Medicare Medicare [id number] Social History Date Type Detail Facility Unknown if ever smoked [facility] Other Start: 02-07-2023 End: 2024 Sex Assigned At [facility] Other Tobacco smoking stat [facility] Tobacco smoking consumption unknown [facility] Start: 1950 Sex Assigned At Not on file [facility] Start: 03-22-2022 End: 04-01-2022 Exposure to SARS-CoV-2 (event) Not sure [facility] Start: 11-25-2022 End: 08-23-2024 Tobacco smoking status NHIS Never smoked tobacco [facility] Start: 11-25-2022 Tobacco use and exposure Smokeless tobacco non-user [facility] Start: 06-23-2023 End: 05-18-2024 Alcohol intake Ex-drinker (finding) [facility] Start: 02-07-2023 End: 2024 History of Social function [facility] Within the last year , have you been afraid of your partner or ex-partner? No [facility] Are you now , , , , never or living with a partner? [facility] How often to you hav e a drink containing alcohol? Never [facility] How many standard drinks containing alcohol do you have on a typical day? Patient does not drink [facility] Do you feel stress - tense, restless, nervous, or anxious, or unable to sleep at night because your mind is troubled all the time - these days [OSQ] To some extent [facility] (I/We) worried wheth er (my/our) food would run out before (I/we) got money to buy more. Never true [facility] Start: 11-25-2022 Alcohol Comment Caffeine: 1-2 cups/day [facility] Start: 1950 Sex Assigned At Female [facility] Start: 11-01-2022 Gender identity Identifies as female gender (finding) [facility] Start: 08-23-2024 Sex Female (finding) [facility] Clinical Notes 03-27-2021 to 07-28-2024 Telephone Encounter - Radha Rajan NP - 07/28/2024 12:39 PM ESTTelephone Encounter - Radha Rajan NP - 07/28/2024 12:39 PM Desi Rajan NP - 05/18/2024 11:00 AM EST Note Date & Type Note Facility 07-28-2024 Telephone encounter Note OARRS checked. Last Rx 05/28/24. Rx sent [facility] 07-28-2024 Miscellaneous Notes OARRS checked. Last Rx 05/28/24. Rx sent documented in this encounter [facility] 07-19-2024 Telephone encounter Note OARRS checked, Last Rx 06/18/24. Rx sent [facility] [facility] Miscellaneous Notes OARRS checked, Last Rx 06/18/24. Rx sent documented in this encounter [facility] 06-18-2024 Telephone encounter Note OARRS checked, last Rx 05/18/24. Rx sent [facility] 06-18-2024 Miscellaneous Notes OARRS checked, last Rx 05/18/24. Rx sent documented in this encounter [facility] 05-28-2024 Telephone encounter Note OARRs checked, no red flags [facility] 05-28-2024 Miscellaneous Notes OARRs checked, no red flags documented in this encounter [facility] 05-18-2024 History of Presen t illness Narrative Images from the original note were not included. Subjective Patient ID: Sylvia Miller is a 74 y.o. female who presents for Follow-up (Pain, no better, no worse.). HPI: Pretty much the same . Saw Dr Laurent-Neurology, last week, he said injections in left hand can been given up to 8 times a year, he did one last week. It has made a huge difference . She is now on B1-he just added and 2 meds. It has eliminated pain that goes down back of legs and has helped decrease back pain -not there all the time. Pain /10, but still has pain in knee 11/09. Hand pain /. Taking 1 Tramadol at 6A, 12 Noon, 6 PM and Trleptal and Lyricia 100mg at 9:30PM and pamelor and Tramadol 11:30PM. Does things when feels good, rests when doesn't feel good/pain. BP at 135/59, P 75, pior 131/62, P 73-see log Review of Systems Constitutional: Positive for fatigue. Negative for appetite change, chills and fever. Appetitie is too good, slight fatigue. Could eat more protein HENT: Occ nasal drainage, has Leah at home if needed and Flonase Respiratory: Positive for cough. Negative for chest tightness and shortness of breath. 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 Gastrointestinal: Negative for abdominal pain and blood in stool. No change in bowels. No GERD or rare, with Nexium and watching diet Genitourinary: Negative for difficulty urinating and dysuria. Musculoskeletal: See HPI Skin: Negative for rash. Neurological: Negative for dizziness and headaches. Psychiatric/Behavioral: Sleeping alittle better with new meds. Naps occ. Gets grouchy at times r/t pain, prefers not to take med for mood 11/05/2023 1:35 PM 01/14/2024 1:39 PM 2024 9:11 AM 03/17/2024 11:58 AM 05/12/2024 3:15 PM 05/18/2024 11:09 AM 05/18/2024 11:36 AM Vitals BMI 54.97 kg/m2 53.23 kg/m2 53.23 kg/m2 51.94 kg/m2 53.75 kg/m2 BSA (m2) 2.15 m2 2.12 m2 2.12 m2 2.09 m2 2.13 m2 Systolic 154 138 146 118 150 134 Diastolic 74 84 84 82 82 74 Heart Rate 76 72 Height (in) 4' 9 4' 9 4' 9 Weight (lb) 254 246 246 240 248.4 Visit Report Report Report Report Report Report Objective Physical Exam Vitals reviewed. Constitutional: General: She is not in acute distress. HENT: Right Ear: Tympanic membrane normal. Ears: Comments: Left with small-mod ceruem, other elizabeth ok Nose: Nose normal. No rhinorrhea. Mouth/Throat: Mouth: Mucous membranes are moist. Pharynx: Oropharynx is clear. No posterior oropharyngeal erythema. Eyes: Extraocular Movements: Extraocular movements intact. Comments: Glasses on Cardiovascular: Rate and Rhythm: Normal rate and regular rhythm. Comments: Large lower legs, supports on lower legs Pulmonary: Effort: Pulmonary effort is normal. Breath sounds: Normal breath sounds. Comments: No cough Abdominal: General: Bowel sounds are normal. Palpations: Abdomen is soft. Tenderness: There is no abdominal tenderness. Musculoskeletal: Comments: Using wheeled walker Skin: General: Skin is warm and dry. Neurological: Mental Status: She is alert and oriented to person, place, and time. Psychiatric: Comments: Calm and cooperative,well groomed I have reviewed and reconciled the history and medication list with the patient today. Assessment/Plan Diagnoses and all orders for this visit: Essential hypertension (CMS/HCC): Elevated initially, better on recheck Other chronic pain Comments: Pt takes Tramadol. she is aware it is a controlled substance, can be addictive/abused. Keep in a safe place, do not share medication, take the least amt possible. Use other modalities to control pain. Pain contract signed today. OARRS checked last Rx 04/16/24. Rx sent Orders: - traMADol (Ultram) 50 MG tablet; Take 1 tablet (50 mg) by mouth every 6 (six) hours if needed for severe pain Other spondylosis with radiculopathy, lumbar region: See above Comments: pain conract signed today Orders: - traMADol (Ultram) 50 MG tablet; Take 1 tablet (50 mg) by mouth every 6 (six) hours if needed for severe pain Gait disturbance Comments: Using wheeled walker Paresthesia of skin: Seeing Neurology Comments: taking 100mg pf Lyrica (75mg and 25mg) Atherosclerosis of aorta (CMS/HCC) Comments: Echocardiogram 10/21-pt has order to repeat-enc to do it at some point. Hard for me to lay on a table, and on side Moderate scoliosis Impaired fasting glucose Comments: Last HgbA1c 6.1 in Jan (prior 5.6) Dyslipidemia (CMS/HCC) Comments: Last lipids Jan-overall controlled Mixed hyperlipidemia (CMS/HCC) - atorvastatin (Lipitor) 10 MG tablet; Take 1 tablet (10 mg) by mouth 1 (one) time each day at the same time Other chronic pain - traMADol (Ultram) 50 MG tablet; Take 1 tablet (50 mg) by mouth every 6 (six) hours if needed for severe pain Other spondylosis with radiculopathy, lumbar region - traMADol (Ultram) 50 MG tablet; Take 1 tablet (50 mg) by mouth every 6 (six) hours if needed for severe pain F/U 3 months for pain, sooner if concerns. PVU documented in this encounter [facility] 05-12-2024 History of Presen t illness Narrative Images from the original note were not included. CHIEF COMPLAINT REASON FOR VISIT : Injection HPI: Sylvia Miller is a 74 y.o. female who presents for left carpal tunnel. States it's not doing too bad right now but would like to have injections as she does not want to come out in this weather. She stated that she went back to the 10 mg of the nortriptyline as the higher one was giving her really bad headaches. CURRENT MEDICATIONS: ALLERGIES/DISCONTINUE MEDICATIONS Current Outpatient Medications Medication Instructions atorvastatin (LIPITOR) 10 mg, Oral, Every 24 hours calcium carbonate 1500 (600 Ca) MG tablet Every 12 hours cholecalciferol (D3-5) 5,000 Units tablet Every 24 hours Cyanocobalamin (VITAMIN B-12 PO) 1 tablet, Oral, Daily esomeprazole (NexIUM) [address] capsule TAKE 1 CAPSULE BY MOUTH IN THE MORNING BEFORE A MEAL DO NOT OPEN CAPSULE fexofenadine (Leah Allergy) 180 MG tablet Every 24 hours hydroCHLOROthiazide (HYDRODIURIL) 25 mg, Oral, Every morning losartan (Cozaar) 25 MG tablet TAKE 1 TABLET BY MOUTH DAILY AT THE SAME TIME EACH DAY montelukast (SINGULAIR) 10 mg, Oral, Every morning Multiple Vitamins-Minerals (Multivitamin Women) tablet Every 24 hours nortriptyline (PAMELOR) 25 mg, Oral, Nightly OXcarbazepine (TRILEPTAL) 150 mg, Oral, 2 times daily pregabalin (LYRICA) 100 mg, Oral, Daily traMADol (ULTRAM) 50 mg, Oral, Every 6 hours PRN Allergies Allergen Reactions Duloxetine GI intolerance Duloxetine Hcl Other Reaction(s): nausea, dry heaves, headache Fluoxetine Other Reaction(s): jittery Other Reaction(s): Other (See Comments), Other: See Comments Makes patient jitter jittery Lisinopril Other Reaction(s): cough Nabumetone Other Reaction(s): Itching / Stomach Pain Goltry [Hydrocodone-Acetaminophen] Other Jittery/restless Sulfamethoxazole-Trimethoprim Rash There are no discontinued medications. PAST MEDICAL HISTORY: SURGICAL/SOCIAL/FAMILY HISTORY DEPRESSION SCREEN: Past Medical History: Diagnosis Date Allergies Biliary dyskinesia 06/23/2018 Calculus of gallbladder without cholecystitis without obstruction 06/23/2018 Cellulitis of umbilicus 07/21/2018 Cholelithiasis Congenital malformation of uterus Depression ([facility]) Difficulty walking Diverticulosis GERD (gastroesophageal reflux disease) HL (hearing loss) Hyperglycemia due to type 2 diabetes mellitus ([facility]) 09/25/2020 Hypertension ([facility]) Impaired cognition 04/13/2021 Major depressive disorder, single episode, unspecified ([facility]) 09/27/2022 Moderate episode of recurrent major depressive disorder ([facility]/HCC) 12/23/2020 Morbid obesity with BMI of 45.0-49.9, adult ([facility]) Numbness Osteoarthritis of right hip Osteopenia of left thigh Renal calculus, bilateral Past Surgical History: Procedure Laterality Date CHOLECYSTECTOMY 07/08/[address] ANGIOGRAM HEART CORONARY 09/14/2021 CT ANGIOGRAM TAVR 09/14/2021 TOTAL HIP ARTHROPLASTY Right 02/20/2016 Dr Torres UMBILICAL HERNIA REPAIR 07/08/2018 Dr Kirkland Social History Tobacco Use Smoking status: Never Smokeless tobacco: Never Vaping Use Vaping status: Never Used Substance Use Topics Alcohol use: Not Currently Comment: Caffeine: 1-2 cups/day Drug use: Never Family History Problem Relation Name Age of Onset Hypertension Mother Keerthi Wiley Stroke Mother Keerthi Wiley Dementia Father Elmo Wiley Depression: Not at risk (2024) PHQ-2 PHQ-2 Score: 0 REVIEW OF SYMPTOMS: Review of Systems OBJECTIVE: 05/12/2024 3:15 PM 03/17/2024 11:58 AM 2024 9:11 AM Vitals BMI 51.94 kg/m2 53.23 kg/m2 53.23 kg/m2 BSA (m2) 2.09 m2 2.12 m2 2.12 m2 Systolic 118 146 Diastolic 82 84 Heart Rate 76 Height (in) 4' 9 4' 9 Weight (lb) 240 246 246 Visit Report Report EXAM: Neurological Exam PROCEDURE: Carpal Tunnel Injection After explaining the risks, complications, and benefits of the procedure, the patient was seated in the chair. Allergies were reviewed, the consent was signed. The left wrists were marked for injections and cleaned using sterile technique, after identifying the palmaris tendon, a 30 gauge 1/2 needle was slowly inserted into the left carpal tunnel region. The patient received 0.5 cc Bupivacaine 0.50% and 0.5 cc Dexamethasone 4mg. The needle was removed. The patient tolerated the procedure well and without complications. A Band-Aid dressing was applied on the injection site. Ultrasound images were placed in the media folder. ASSESSMENT AND PLAN: 1. Carpal tunnel syndrome of left wrist (Primary) - bupivacaine (Marcaine) 0.5 % injection 5 mg - dexAMETHasone sod phos (Decadron) injection 4 mg I will schedule her out for 3 months to see if she has received 50% or greater pain relief and if she has I can repeat her injections if needed. documented in this encounter [facility] 04-16-2024 Telephone encounter Note OARRS checked, last Rx 03/18/24 Rx sent [facility] 04-16-2024 Miscellaneous Notes OARRS checked, last Rx 03/18/24 Rx sent documented in this encounter [facility] 04-15-2024 Telephone encounter Note Rx sent [facility] 04-15-2024 Miscellaneous Notes Rx sent documented in this encounter [facility] 04-11-2024 Telephone encounter Note Pamelor refill request sent to provider Request for 90 days. Medication sent 03/18/24 for 30 days. Allergies in chart flagging contraindications. Refill request sent to provider [facility] 04-11-2024 Miscellaneous Notes Pamelor refill request sent to provider Request for 90 days. Medication sent 03/18/24 for 30 days. Allergies in chart flagging contraindications. Refill request sent to provider documented in this encounter [facility] 03-30-2024 Telephone encounter Note OARRS checked , no issues lyrica sent [facility] 03-30-2024 Miscellaneous Notes OARRS checked , no issues lyrica sent documented in this encounter [facility] 03-18-2024 Telephone encounter Note OARRS checked, Last Rx 02/17/24. Rx sent [facility] 03-18-2024 Miscellaneous Notes OARRS checked, Last Rx 02/17/24. Rx sent documented in this encounter [facility] 03-17-2024 History of Presen t illness Narrative Images from the original note were not included. CHIEF COMPLAINT REASON FOR VISIT: Injections. HPI: Sylvia Miller is a 74 y.o. female who presents for left carpal tunnel injection by more than 50 %. She states that it still feels better than it did and the injection has held since her last appt. Pain level is a 5/10. She is asking if Dr. Laurent can adjust her medications from the nortriptyline and oxcarbazepine. She states the nortriptyline did take away the pain down the back of her legs. Denies any other concerns. CURRENT MEDICATIONS: ALLERGIES/DISCONTINUE MEDICATIONS Current Outpatient Medications Medication Instructions atorvastatin (LIPITOR) 10 mg, Oral, Every 24 hours calcium carbonate 1500 (600 Ca) MG tablet Every 12 hours cholecalciferol (D3-5) 5,000 Units tablet Every 24 hours Cyanocobalamin (VITAMIN B-12 PO) 1 tablet, Oral, Daily esomeprazole (NexIUM) [address] capsule TAKE 1 CAPSULE BY MOUTH IN THE MORNING BEFORE A MEAL DO NOT OPEN CAPSULE fexofenadine (Leah Allergy) 180 MG tablet Every 24 hours hydroCHLOROthiazide (HYDRODIURIL) 25 mg, Oral, Every morning losartan (Cozaar) 25 MG tablet TAKE 1 TABLET BY MOUTH DAILY AT THE SAME TIME EACH DAY montelukast (SINGULAIR) 10 mg, Oral, Daily Multiple Vitamins-Minerals (Multivitamin Women) tablet Every 24 hours nortriptyline (PAMELOR) 20 mg, Oral, Nightly OXcarbazepine (TRILEPTAL) 150 mg, Oral, 2 times daily pregabalin (LYRICA) 100 mg, Oral, Daily traMADol (ULTRAM) 50 mg, Oral, Every 6 hours PRN Allergies Allergen Reactions Duloxetine GI intolerance Duloxetine Hcl Other Reaction(s): nausea, dry heaves, headache Fluoxetine Other Reaction(s): jittery Other Reaction(s): Other (See Comments), Other: See Comments Makes patient jitter jittery Lisinopril Other Reaction(s): cough Nabumetone Other Reaction(s): Itching / Stomach Pain Goltry [Hydrocodone-Acetaminophen] Other Jittery/restless Sulfamethoxazole-Trimethoprim Rash There are no discontinued medications. PAST MEDICAL HISTORY: SURGICAL/SOCIAL/FAMILY HISTORY DEPRESSION SCREEN: Past Medical History: Diagnosis Date Allergies Biliary dyskinesia 06/23/2018 Calculus of gallbladder without cholecystitis without obstruction 06/23/2018 Cellulitis of umbilicus 07/21/2018 Cholelithiasis Congenital malformation of uterus Depression ([facility]) Difficulty walking Diverticulosis GERD (gastroesophageal reflux disease) HL (hearing loss) Hyperglycemia due to type 2 diabetes mellitus ([facility]) 09/25/2020 Hypertension ([facility]) Impaired cognition 04/13/2021 Major depressive disorder, single episode, unspecified ([facility]) 09/27/2022 Moderate episode of recurrent major depressive disorder ([facility]) 12/23/2020 Morbid obesity with BMI of 45.0-49.9, adult ([facility]) Numbness Osteoarthritis of right hip Osteopenia of left thigh Renal calculus, bilateral Past Surgical History: Procedure Laterality Date CHOLECYSTECTOMY 07/08/[address] ANGIOGRAM HEART CORONARY 09/14/2021 CT ANGIOGRAM TAVR 09/14/2021 TOTAL HIP ARTHROPLASTY Right 02/20/2016 Dr Torres UMBILICAL HERNIA REPAIR 07/08/2018 Dr Kirkladn Social History Tobacco Use Smoking status: Never Smokeless tobacco: Never Vaping Use Vaping status: Never Used Substance Use Topics Alcohol use: Not Currently Comment: Caffeine: 1-2 cups/day Drug use: Never Family History Problem Relation Name Age of Onset Hypertension Mother Keerthi Wiley Stroke Mother Keerthi Wiley Dementia Father Elmo Wiley Depression: Not at risk (2024) PHQ-2 PHQ-2 Score: 0 REVIEW OF SYMPTOMS: Review of Systems Constitutional: Negative for chills, diaphoresis, fatigue and fever. HENT: Negative for ear pain, tinnitus and trouble swallowing. Eyes: Negative for photophobia and visual disturbance. Respiratory: Negative for cough and shortness of breath. Cardiovascular: Negative for palpitations and leg swelling. Gastrointestinal: Negative for abdominal pain and nausea. Genitourinary: Negative for difficulty urinating and urgency. Musculoskeletal: Negative for arthralgias, back pain, myalgias, neck pain and neck stiffness. Neurological: Negative for tremors, weakness, light-headedness and numbness. Psychiatric/Behavioral: Negative for agitation, confusion and suicidal ideas. OBJECTIVE: 03/17/2024 11:58 AM 2024 9:11 AM 01/14/2024 1:39 PM Vitals BMI 53.23 kg/m2 53.23 kg/m2 54.97 kg/m2 BSA (m2) 2.12 m2 2.12 m2 2.15 m2 Systolic 118 146 138 Diastolic 82 84 84 Heart Rate 76 Height (in) 4' 9 4' 9 4' 9 Weight (lb) 246 246 254 Visit Report Report Report EXAM: Neurological Exam Mental Status Awake, alert and oriented to person, place and time. Oriented to person, place and time. Recent and remote memory are intact. Speech is normal. Language is fluent with no aphasia. Attention and concentration are normal. Cranial Nerves CN II: Visual acuity is normal. Visual elam full to confrontation. CN III, IV, : Extraocular movements intact bilaterally. Normal lids and orbits bilaterally. Pupils equal round and reactive to light bilaterally. CN V: Facial sensation is normal. CN VII: Full and symmetric facial movement. CN VIII: Hearing is normal. CN XII: Tongue midline without atrophy or fasciculations. Motor Normal muscle bulk throughout. Normal muscle tone. Right Left Wrist flexion 5 5 Wrist extension 5 5 Right Left Deltoid 5 5 Biceps 5 5 Triceps 5 5 Wrist flexor 5 5 Wrist extensor 5 5 Glutei 5 5 Iliopsoas 5 5 Quadriceps 5 5 Gastrocnemius 5 5 Anterior tibialis 5 5 Posterior tibialis 5 5 Sensory Light touch is normal in upper and lower extremities. Pinprick is normal in upper and lower extremities. Vibration is normal in upper and lower extremities. Reflexes Right Left Brachioradialis 2+ 2+ Biceps 2+ 2+ Patellar 2+ 2+ Achilles 2+ 2+ Right Plantar: downgoing Left Plantar: downgoing Right pathological reflexes: Lianne's absent. Ankle clonus absent. Left pathological reflexes: Lianne's absent. Ankle clonus absent. Coordination [id number], rapid alternating movements and [id number] normal bilaterally without dysmetria. Gait Normal casual, toe, heel and tandem gait. Romberg is absent. PROCEDURE: Carpal Tunnel Injection After explaining the risks, complications, and benefits of the procedure, the patient was seated in the chair. Allergies were reviewed, the consent was signed. The left wrists were marked for injections and cleaned using sterile technique, after identifying the palmaris tendon, a 30 gauge 1/2 needle was slowly inserted into the left carpal tunnel region. The patient received 0.5 cc Bupivacaine 0.50% and 0.5 cc Dexamethasone 4mg. The needle was removed. The patient tolerated the procedure well and without complications. A Band-Aid dressing was applied on the injection site. Ultrasound images were placed in the media folder. ASSESSMENT AND PLAN: 1. Carpal tunnel syndrome of left wrist (Primary) - nortriptyline (Pamelor) 25 MG capsule; Take 1 capsule (25 mg) by mouth at bedtime Dispense: 30 capsule; Refill: 11 - bupivacaine (Marcaine) 0.5 % injection 5 mg - dexAMETHasone sod phos (Decadron) injection 4 mg I will bring her back in 4-6 weeks to see if she has received 50% or greater pain relief and at that time I will repeat the injections if needed. documented in this encounter [facility] 03-11-2024 Telephone encounter Note Rx sent [facility] 03-11-2024 Miscellaneous Notes Rx sent documented in this encounter [facility] 2024 History of Presen t illness Narrative Images from the original note were not included. Subjective Patient ID: Sylvia Miller is a 73 y.o. female who presents for Medicare Annual Wellness Visit Subsequent. HPI: Doing better with back pain. Saw Dr Laurent, for hands. Had EMG, her back got flared with laying on table for EMG. He told her that there was nerve medication that could help back. First one didn't work, then tried Pamelor 10mg. Sill taking Lyrica. Taking Tramadol 1 every 6 hours. May try to decrease over time, but he said she probable needs r/t arthritis. Pain down back of legs was 7/10 after laying on table for EMG, now 2/10 with Pamelor. Also added Trileptal. Still pain outside left hip and down legs to knees. Pain depends on activity 6/10 when active. Had seen Dr Cuellar and [facility]. Dr Laurent has been very helpful . BP had been elevated at last appt. Pt had increased Losartan to 2-pills for awhile. Then BP improved, swelling in legs is down with meds from Dr Laurent. Next appt in March. Last eye exam approx 3-4 years ago, Dr Meeks. Dentist mid March Dr Jefferson. Parada Fall Risk History of Falling, Immediate or Within 3 Months: No Health Risk Assessment Form Do you need help eating, bathing, using the toilet, dressing, or getting around your home?: No Can you prepare your own meals?: Yes Can you do your own housework without help?: Yes Can you shop for groceries or clothes without help?: Yes Do you exercise for about 20 minutes 3 or more days a week?: No How confident are you that you can control and manage most of your health problems?: Very confident Can you mange your money, credit cards and accounts, pay bills and taxes?: Yes Cognitive Screening Three Word Registration: Adrianne Goldberg Mountain Clock Drawing: Normal Clock - 2 Three Word Recall: All 3 words correct - 3 Total Score (0-5 Points): 5 Pain Assessment Pain Score: 4 Review of Systems Constitutional: Positive for fatigue. Negative for appetite change, chills and fever. Appetitie is too good, occ snacks during the night if up HENT: Sl stuffy r/t the season, Using saline N/S or Flonase Breasts: No changes in breast Respiratory: Negative for cough, chest tightness and shortness of breath. 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 Gastrointestinal: Negative for abdominal pain and blood in stool. No change in bowels. No GERD with med and watching diet Genitourinary: Negative for difficulty urinating, dysuria and vaginal bleeding. Musculoskeletal: See HPI Skin: Negative for rash. Neurological: Negative for dizziness and headaches. Psychiatric/Behavioral: Sleeping alittle better with new meds. Naps occ. Gets grouchy at times r/t pain, prefers not to take med of mood Objective Physical Exam Vitals reviewed. Constitutional: General: She is not in acute distress. HENT: Right Ear: Tympanic membrane normal. Left Ear: Tympanic membrane normal. Nose: Nose normal. Mouth/Throat: Mouth: Mucous membranes are moist. Pharynx: Oropharynx is clear. No posterior oropharyngeal erythema. Eyes: Extraocular Movements: Extraocular movements intact. Comments: Glasses on Cardiovascular: Rate and Rhythm: Normal rate and regular rhythm. Comments: Large lower legs, they seem less swollen today Pulmonary: Effort: Pulmonary effort is normal. Breath sounds: Normal breath sounds. Comments: No cough Abdominal: General: Bowel sounds are normal. Palpations: Abdomen is soft. Tenderness: There is no abdominal tenderness. Musculoskeletal: Comments: Using wheeled walker Skin: General: Skin is warm and dry. Neurological: Mental Status: She is alert and oriented to person, place, and time. Psychiatric: Comments: Calm and cooperative,well groomed 02/14/2023 1:38 PM 05/02/2023 1:07 PM 08/01/2023 1:23 PM 11/05/2023 1:05 PM 11/05/2023 1:35 PM 01/14/2024 1:39 PM 2024 9:11 AM Vitals BMI 51.11 kg/m2 55.09 kg/m2 54.97 kg/m2 53.23 kg/m2 BSA (m2) 2.07 m2 2.15 m2 2.15 m2 2.12 m2 Systolic 142 144 144 170 154 138 146 Diastolic 78 82 72 82 74 84 84 Heart Rate 92 84 76 Height (in) 4' 9 4' 9 Weight (lb) 236.2 254.6 254 246 Visit Report Report Report Report Report Report Report Report Recent Results (from the past 336 hour(s)) Lipid panel Collection Time: 02/04/24 9:17 AM Result Value Ref Range CHOLESTEROL, TOTAL 157 <200 mg/dL HDL CHOLESTEROL 54 > OR = 50 mg/dL TRIGLYCERIDES 103 <150 mg/dL LDL-CHOLESTEROL 83 mg/dL (calc) CHOL/HDLC RATIO 2.9 <5.0 (calc) NON HDL CHOLESTEROL 103 <130 mg/dL (calc) Hemoglobin A1c Collection Time: 02/04/24 9:17 AM Result Value Ref Range Hemoglobin A1C 6.1 (H) <5.7 % of total Hgb CBC Collection Time: 02/04/24 9:17 AM Result Value Ref Range WHITE BLOOD CELL COUNT 7.4 3.8 - 10.8 Thousand/uL RED BLOOD CELL COUNT 4.45 3.80 - 5.10 Million/uL HEMOGLOBIN 13.1 11.7 - 15.5 g/dL HEMATOCRIT 39.8 35.0 - 45.0 % MCV 89.4 80.0 - 100.0 fL MCH 29.4 27.0 - 33.0 pg MCHC 32.9 32.0 - 36.0 g/dL RDW 14.3 11.0 - 15.0 % PLATELET COUNT 255 140 - 400 Thousand/uL MPV 9.2 7.5 - 12.5 fL Comprehensive metabolic panel Collection Time: 02/04/24 9:17 AM Result Value Ref Range Glucose 90 65 - 99 mg/dL BUN 19 7 - 25 mg/dL Creatinine 0.66 0.60 - 1.00 mg/dL EGFR 93 > OR = 60 mL/min/1.73m2 BUN/CREATININE RATIO SEE NOTE: 6 - 22 (calc) Sodium 139 135 - 146 mmol/L Potassium, Bld 4.2 3.5 - 5.3 mmol/L Chloride 98 98 - 110 mmol/L Carbon Dioxide 35 (H) 20 - 32 mmol/L Calcium 9.2 8.6 - 10.4 mg/dL PROTEIN, TOTAL 6.7 6.1 - 8.1 g/dL ALBUMIN 4.0 3.6 - 5.1 g/dL GLOBULIN 2.7 1.9 - 3.7 g/dL (calc) ALBUMIN/GLOBULIN RATIO 1.5 1.0 - 2.5 (calc) BILIRUBIN, TOTAL 0.4 0.2 - 1.2 mg/dL ALKALINE PHOSPHATASE 75 37 - 153 U/L AST 15 10 - 35 U/L ALT 14 6 - 29 U/L Vitamin D 25 hydroxy Collection Time: 02/04/24 9:17 AM Result Value Ref Range VITAMIN D,25-OH,TOTAL,IA 71 30 - 100 ng/mL TSH Collection Time: 02/04/24 9:17 AM Result Value Ref Range TSH 3.70 0.40 - 4.50 mIU/L T4, free Collection Time: 02/04/24 9:17 AM Result Value Ref Range T4, FREE 1.0 0.8 - 1.8 ng/dL Assessment/Plan Diagnoses and all orders for this visit: Medicare annual wellness visit, subsequent: Reviewed Medicare Wellness form. Flu vaccine given today. Tetanus, shingles and Pneumonia UTD. Pt declines getting any more covid vaccines. Enc RSV. Last colonoscopy 2015-normal. Mammogram 03/24-order is in. Enc eye exam soon (last was 3-4 years ago). Pt has l aLiving will at home, enc her to bring in a copy for her chart. PVU Essential hypertension (CMS/HCC): Sl elevated, but has been better at home. Pt is taking 1 Losartan daily at this time. Other spondylosis with radiculopathy, lumbar region Comments: Hx of, OARRs checked, no red flags. Pt has pain contract from 05/24. Pt is aware his pain medication is a controlled substance. It can be abused/addicitive. Pt keeps it in a safe place. Does not share medication. Pt is aware of Se's. He is to try other modalities to control his pain. She is using heat to back and ice to legs, She also uses cream from [employer]. She is to take the least amount possible. Get from same provider group and pharmacy. Discussed potential CORPORATE INVESTIGATOR depression with taking pain med with Dion. PVU Orders: - traMADol (Ultram) 50 MG tablet; Take 1 tablet (50 mg) by mouth every 6 (six) hours if needed for severe pain Atherosclerosis of aorta (CMS/HCC): See below Aortic valve stenosis, etiology of cardiac valve disease unspecified Comments: Last echo 10/21-has order, plans to do at some point when pain is better (It is hard for her to lay on table) Pulmonary fibrosis, unspecified (CMS/HCC) Comments: Had been in the ER in the past, thinks Dx was from that. Declined further work up Dyslipidemia (CMS/HCC) Comments: Controlled Age-related osteoporosis without current pathological fracture (CMS/HCC): In the past, last Dexa was Osteopenia femur, normal back Mild episode of recurrent major depressive disorder (HCC) (CMS/HCC) Comments: Pt does not want to take medication, she had tried some and didn't tolerate them well. Morbid obesity (CMS/HCC); Praise given for weight loss Enc pt to avoid eating sweets alis if she snacks at night. Prefer she eat something with carb/protein. Ie Low fat cheese stick, 1/2 meat or peanut butter sandwich, apple with peanut butter Osteopenia, unspecified location Comments: Last Dexa 2019-see above Cardiac hypertrophy: See above Other chronic pain Comments: Pt is taking Tramadol She is aware it is a controlled substance, can be addictive, abused. Keep in a safe place, do not shared medication. Use least amount Orders: - traMADol (Ultram) 50 MG tablet; Take 1 tablet (50 mg) by mouth every 6 (six) hours if needed for severe pain Impaired fasting glucose Comments: See above. (Prior HgbA1c 5.6). Leukocytosis, unspecified type Comments: WNL on last lab S/P laparoscopic cholecystectomy Gait disturbance Comments: Uses wheeled walker Primary localized osteoarthrosis of shoulder region, unspecified laterality Moderate scoliosis Left knee pain, unspecified chronicity Renal calculus, bilateral Comments: no recent flare Gastroesophageal reflux disease, unspecified whether esophagitis present: Doing ok at this time Bilateral carpal tunnel syndrome Comments: Seeing Neurology, Dr Laurent Paresthesia of skin Comments: Taking Belen 75mg and 25mg (total of 100mg) Ventricular hypertrophy determined by echocardiography Diverticulosis: No abdominal pain Uterovaginal prolapse Comments: not bothering her, prefers no to to see anyone Right hip pain Comments: Pt sees Dr Torres-has not needed to go for awhile Encounter for immunization - Flu vaccine, high dose seasonal, PF ([id number]) (Fluzone High Dose) Screening mammogram for breast cancer - Bilateral screening mammogram with tomosynthesis; Future Other chronic pain - traMADol (Ultram) 50 MG tablet; Take 1 tablet (50 mg) by mouth every 6 (six) hours if needed for severe pain Other spondylosis with radiculopathy, lumbar region - traMADol (Ultram) 50 MG tablet; Take 1 tablet (50 mg) by mouth every 6 (six) hours if needed for severe pain F/U 3 months for pain, sooner if concerns. PVU documented in this encounter [facility] 01-28-2024 Telephone encounter Note OARRS checked, no red flags [facility] 01-28-2024 Miscellaneous Notes OARRS checked, no red flags documented in this encounter [facility] 07-04-2023 Telephone encounter Note Rx sent [facility] 07-04-2023 Miscellaneous Notes Rx sent documented in this encounter [facility] 04-01-2022 Note HNO ID: [id number] Author: Leslie Del Cid, DO Service: ? Author Type: Physician Type: Progress Notes Filed: 04/01/2022 2:58 PM Note Text: Spine Care Path Low Back Pain - Chronic (> 12 weeks) Initial Exam SUBJECTIVE HISTORY OF PRESENT ILLNESS: Sylvia Miller is a 72 year old female who presents with a chief complaint of low back pain and is seen in consultation requested by Dr. Radha Rajan for an opinion regarding low back pain with radiation down back of legs, left side worse than right. Intermittent in nature. Worse when walking/standing. States has had for years but has gotten worse over past 1.5 years. My final recommendations will be communicated back to the requesting physician by way of shared medical record or letter via [place] mail. Other Issues Addressed at the Visit Today: None. Precipitating Event: None PAIN EVALUATION 04/01/2022 1257 Pain Level: 6 Pain Location: Back-Lower Description: Aching;Sharp;Radiating Duration Amount of Time: 1.5 Duration Units: Years Frequency: Intermittent Intervention/Comfort measure: Medication;Reposition;Heat;Cold Pain Radiation: low back pain with radiation down back of legs, left leg to knee, right leg to ankle PREVIOUS TREATMENTS IN THE LAST SIX MONTHS Active conservative therapy in the last six months (see below) 1. Physical therapy: No 2. Home exercise program after PT:No 3. A physician supervised home exercise program (HEP): No 4. Windmill Mechanic: No 5. What are your limitations: Standing, walking Passive conservative therapy in the last six months (see below) 1. NSAIDS: None 2. Prescription pain medication: Gabapentin 300 mg - last dose this morning, Tramadol - last dose this AM 3. Acupuncture: No 4. Tens unit: No Aggravating Factors: Standing, Walking Alleviating Factors: Medications, Heat application, Cold application, Sitting Prior Therapy: Tramadol, ice, heat, gabapentin, TFESI X 3 in [facility] Litigation: No Workers' Compensation: No YELLOW AND BLUE FLAGS No-Neg Attitude; Back Pain is Disabling No-Avoiding Activity (for Fear of Pain) No-Depression or Anxiety Disorders No-Social Problems No-Substance Use Disorder No-Job Dissatisfaction No-Financial Disincentives Patient Entered Questionnaires Spine Questions 03/28/2022 Pain Location: Lower back Pain Duration: 1 to 5 years Pain over last 6 months: Every day or nearly every day in the past 6 months Symptoms from neck/cervical spine: No Employment Status: Retired Involved in law suit/legal claim: No Spine Red Flags 03/28/2022 Any type of cancer: No Unexplained fever: No Bowel or bladder disfunction: No Unintentional weight loss: No Osteoporosis: No PROMIS Score Percentiles Physical Health 03/28/2022 Physical Function Percentile 0 Sleep Percentile 12 Fatigue Percentile 14 Pain Interference Percentile 1 PROMIS SOCIAL ROLE SCORE 03/28/2022 Social Role Satisfaction Percentile 10 PROMIS Global Health Scale 03/28/2022 Physical Health Percentile 10 Mental Health Percentile 13 Percentiles provide an indication of how the patient's score ranks in relation to the general population. Higher percentile rankings indicate better function/quality of life. 50th percentile is the average of the general population and indicates half of respondents had a worse score. Depression Screening: PHQ-9 03/28/2022 Score 5 PHQ-9 Self Harm 03/28/2022 Question 9 Not at all PHQ-9 Self-Harm (Item 9) response options: 0 Not at all 1 Several days 2 More than half the days 3 Nearly every day PHQ-9 Levels: 0-4 No - mild depression 5-9 Mild depression 10-14 Moderate depression 15-19 Moderately severe depression 20-27 Severe depression There is no problem list on file for this patient. No past medical history on file. No past surgical history on file. No family history on file. ALLERGIES Allergen Reactions Bactrim [Sulfametho* Rash Cymbalta [Duloxetin* GI Upset Lisinopril Cough Prozac [Fluoxetine] Other: See Comments Makes patient jitter CURRENT MEDICATIONS: mecobalamin (B12 ACTIVE ORAL) Take 1 capsule by mouth once daily. gabapentin (NEURONTIN) 300 mg/6 mL (6 mL) oral solution Take 300 mg by mouth. traMADol (ULTRAM) 50 mg tablet Take 50 mg by mouth every 6 hours as needed for pain. atorvastatin (LIPITOR) 10 mg tablet Take 10 mg by mouth once daily. losartan (COZAAR) 25 mg tablet Take 25 mg by mouth once daily. hydroCHLOROthiazide (HYDRODIURIL, ESIDRIX) 25 mg tablet Take 25 mg by mouth once daily. montelukast (SINGULAIR) 10 mg tablet Take 10 mg by mouth daily at bedtime. esomeprazole (NEXIUM) 20 mg capsule Take 20 mg by mouth once daily. Eajhwprchzsvw-Bzipdibw-Eapkul (MULTIVITAMIN 50 PLUS) tab Take 1 tablet by mouth once daily. fexofenadine (LEAH) 180 mg tablet Take 180 mg by mouth once daily. calcium carbonate (CALCIUM 600) 600 mg calcium (1,500 mg) tab Take (more content not included)... [facility] 04-01-2022 History of Presen t illness Narrative Spine Care Path Low Back Pain - Chronic (> 12 weeks) Initial Exam SUBJECTIVE HISTORY OF PRESENT ILLNESS: Sylvia Miller is a 72 year old female who presents with a chief complaint of low back pain and is seen in consultation requested by Dr. Radha Rajan for an opinion regarding low back pain with radiation down back of legs, left side worse than right. Intermittent in nature. Worse when walking/standing. States has had for years but has gotten worse over past 1.5 years. My final recommendations will be communicated back to the requesting physician by way of shared medical record or letter via [place] mail. Other Issues Addressed at the Visit Today: None. Precipitating Event: None PAIN EVALUATION 04/01/2022 1257 Pain Level: 6 Pain Location: Back-Lower Description: Aching;Sharp;Radiating Duration Amount of Time: 1.5 Duration Units: Years Frequency: Intermittent Intervention/Comfort measure: Medication;Reposition;Heat;Cold Pain Radiation: low back pain with radiation down back of legs, left leg to knee, right leg to ankle PREVIOUS TREATMENTS IN THE LAST SIX MONTHS Active conservative therapy in the last six months (see below) 1. Physical therapy: No 2. Home exercise program after PT:No 3. A physician supervised home exercise program (HEP): No 4. Windmill Mechanic: No 5. What are your limitations: Standing, walking Passive conservative therapy in the last six months (see below) 1. NSAIDS: None 2. Prescription pain medication: Gabapentin 300 mg - last dose this morning, Tramadol - last dose this AM 3. Acupuncture: No 4. Tens unit: No Aggravating Factors: Standing, Walking Alleviating Factors: Medications, Heat application, Cold application, Sitting Prior Therapy: Tramadol, ice, heat, gabapentin, TFESI X 3 in [facility] Litigation: No Workers' Compensation: No YELLOW & BLUE FLAGS No-Neg Attitude; Back Pain is Disabling No-Avoiding Activity (for Fear of Pain) No-Depression or Anxiety Disorders No-Social Problems No-Substance Use Disorder No-Job Dissatisfaction No-Financial Disincentives Patient Entered Questionnaires Spine Questions 03/28/2022 Pain Location: Lower back Pain Duration: 1 to 5 years Pain over last 6 months: Every day or nearly every day in the past 6 months Symptoms from neck/cervical spine: No Employment Status: Retired Involved in law suit/legal claim: No Spine Red Flags 03/28/2022 Any type of cancer: No Unexplained fever: No Bowel or bladder disfunction: No Unintentional weight loss: No Osteoporosis: No PROMIS Score Percentiles Physical Health 03/28/2022 Physical Function Percentile 0 Sleep Percentile 12 Fatigue Percentile 14 Pain Interference Percentile 1 PROMIS SOCIAL ROLE SCORE 03/28/2022 Social Role Satisfaction Percentile 10 PROMIS Global Health Scale 03/28/2022 Physical Health Percentile 10 Mental Health Percentile 13 Percentiles provide an indication of how the patient's score ranks in relation to the general population. Higher percentile rankings indicate better function/quality of life. 50th percentile is the average of the general population and indicates half of respondents had a worse score. Depression Screening: PHQ-9 03/28/2022 Score 5 PHQ-9 Self Harm 03/28/2022 Question 9 Not at all PHQ-9 Self-Harm (Item 9) response options: 0 Not at all 1 Several days 2 More than half the days 3 Nearly every day PHQ-9 Levels: 0-4 No - mild depression 5-9 Mild depression 10-14 Moderate depression 15-19 Moderately severe depression 20-27 Severe depression There is no problem list on file for this patient. No past medical history on file. No past surgical history on file. No family history on file. ALLERGIES Allergen Reactions Bactrim [Sulfametho* Rash Cymbalta [Duloxetin* GI Upset Lisinopril Cough Prozac [Fluoxetine] Other: See Comments Makes patient jitter CURRENT MEDICATIONS: mecobalamin (B12 ACTIVE ORAL) Take 1 capsule by mouth once daily. gabapentin (NEURONTIN) 300 mg/6 mL (6 mL) oral solution Take 300 mg by mouth. traMADol (ULTRAM) 50 mg tablet Take 50 mg by mouth every 6 hours as needed for pain. atorvastatin (LIPITOR) 10 mg tablet Take 10 mg by mouth once daily. losartan (COZAAR) 25 mg tablet Take 25 mg by mouth once daily. hydroCHLOROthiazide (HYDRODIURIL, ESIDRIX) 25 mg tablet Take 25 mg by mouth once daily. montelukast (SINGULAIR) 10 mg tablet Take 10 mg by mouth daily at bedtime. esomeprazole (NEXIUM) 20 mg capsule Take 20 mg by mouth once daily. Roygbgmnhulgp-Eslzpzsw-Bwtowt (MULTIVITAMIN 50 PLUS) tab Take 1 tablet by mouth once daily. fexofenadine (LEAH) 180 mg tablet Take 180 mg by mouth once daily. calcium carbonate (CALCIUM 600) 600 mg calcium (1,500 mg) tab Take 600 mg by mouth twice daily. cholecalciferol, vitamin D3, (VITAMIN D3 ORAL) Take by mouth. REVIEW OF SYSTEMS: PAIN ASSESSMENT: See HPI. GENERAL: Denies fever, chills malaise and weight loss. HEENT: No recent change in vision or hearing. CARDIOVASCULAR: Hypertension RESPIRATORY: Denies SOB, sputum production, and hemoptysis. GI: Denies GI ulcers, inflammatory disease, or liver disease. : Denies change in frequency or urgency, kidney disease, and burning with urination. MUSCULOSKELETAL: Negative for joint pain or swelling, back pain or muscle pain. SKIN: Denies rash or itching. PSYCHOLOGICAL: Denies uncontrolled depression or anxiety. NEURO: Denies CVA, seizures, headaches. ENDOCRINE: Denies diabetes, thyroid disease. HEMATOLOGY/LYMPHOLOGY: Denies cancer, bleeding or clotting disorders, anemia,and DVT's. ALLERGIC/IMMUNOLOGICAL: Denies risks for infection, or recent MRSA infections. OBJECTIVE: PHYSICAL EXAM Ht 152.4 cm (5') Wt 108.9 kg (240 lb) BMI 46.87 kg/m SIGNATURE: Leslie Del Cid DO PATIENT NAME: Sylvia Miller DATE: April 01, 2022 TIME: 12:59 PM I agree with the Chief Complaint, ROS, and Past Histories independently gathered by the clinical manager decision support and the remaining scribed note accurately describes my personal service to the patient and I have edited the above note to reflect this. See notes for physical exam and treatment plan. CC - LBP, difficulty walking Pt presents today with spouse. PHYSICAL EXAM: Very limited exam GENERAL APPEARANCE - well nourished, well hydrated, no apparent distress,morbid obesity NEURO - Alert and oriented, cooperative, answers questions appropriately GAIT - in a wheel chair SENSORY EXAM - Grossly intact to superficial light touch bilaterally to lower limbs MOTOR STRENGTH DURING SEATED NEURO EXAM - No apparent weakness bilaterally in Hip flexors, knee extensors, plantar flexors, dorsiflexors ROM - Lumbar flexion and extension is significantly limited Lateral bending to rt and lt is moderately limited. KNEE ROM - No significant loss in terminal extension b/l. TENDERNESS - moderate pain with palpation over b/l L3-s1 paraspinous muscles. Negative thigh Thrust b/l LINDA SIGNS - 1) Tenderness: Appropriate 2) Simulation/Axial Loading/ROT: Appropriate 3) Distraction: Seated SLR: Appropriate 4) Regional Disturbances: Appropriate 5) Overreaction: Negative. NEURO/PHYSICAL SIGNS: No significant seated straight leg raising test b/l. RADIOGRAPHY: Reports / films reviewed with patient. Lumbar spine X-Rays :[facility] [place]: 02/06/2021 Impression: Multilevel degenerative changes with scoliosis. No acute bony findings Lumbar Spine X-rays: [facility] [place]: 06/13/2021 Impression: Diffuse degenerative disc disease with associated levoscoliosis, grossly similar to the prior lumbar spine study from 02/06/2021. No definite acute bony process is seen. Lumbar spine MRI :[facility] [place]: 02/13/2021 Impression: Similar levoconvex curvature with 4 mm of meliza listhesis of L5 upon S1. Severe multi level degenerative change with significant neural foraminal narrowing at multiple levels, left greater than the right. The contributes to mass effect on the exiting nerve roots at multiple levels. IMPRESSION: See diagnosis. PLAN: Discussed evidence based options including use of medications, non-surgical and surgical options. Educated about likely pathology and reviewed anatomy and prognosis. At present, pt would like to continue with non surgical care. Pt has had PT, on ultram and neurontin. Has had injections now with diminishing results. Has had surgical eval and recommended to [facility] due to complexity. I had a very extensive talk on her wt and BMI and typical surgical inclusion criteria. I am not certain she is an ideal candidate with a BMI over 46. Recommenced to consider surgical options if she can loose wt for BMI of less thank 40. She is reluctant to consider surgery. Pt may seek care from any other provider in the future. Pt may consider other CAM treatments. I do not have anything new to offer that would provide permanent resolution of pts chronic pain issues. The majority of the visit was spent counseling and/or coordinating care for the patient on the date of the service which included preparing to see the patient, [id number] patient care, completing clinical documentation, obtaining and/or reviewing separately obtained history, performing a medically appropriate examination, and educating the patient/family/caregiver and ordering medications, tests, or procedures. Follow up with primary physician for routine care, blood pressure evaluation, labwork, physical exam as scheduled and for any medical concerns. I have answered all the questions regarding patients current diagnosis, care and treatment plan to patients satisfaction during today's visit. Patient verbalize understanding of current diagnosis and treatment plan. Follow up with me as scheduled Notes from todays visit will be forwarded to consulting/requesting physician. Leslie Del Cid DO, MBA documented in this encounter [facility] 11-27-2021 Evaluation note Encounter Date Diagnosis Assessment Notes Oct, Spinal stenosis (ICD-10 - M48.00) Patients primary complaint today continues to be low lumbar pain radiating into the posterior aspect of her bilateral lower extremities. Given no relief with multiple procedures at this time we will continue to manage her symptoms as best we can with her currentmedication regimen. Patient has a continued need for Tramadol up to two times daily as needed. An OARRS report was processed and reviewed and shows no violations, as well as an opioid risk assessment being completed without concerns. She denies any significant opioid related side effects and appears to be compliant with this medication. The patient was counseled and educated regarding the risks and benefits of predatory animal exterminator opioid use. She understands the associated risks with this medication and agrees that it provides reasonable benefit in regards to her pain control and level of function. Patient is not due for a refill at this time. She was instructed to call into our office in three weeks when she is due and we will e-scribe this. Additionally, I will switch the patient to Lyrica 75 MG twice daily. Risks and side effects of this medication was discussed in detail with the patient who voiced understanding. Anatomy of spine discussed in detail with patient in regards to patients condition. Oct, Other spondylosis with radiculopathy, lumbar region (ICD-10 - M47.26) Oct, Other chronic pain (ICD-10 - G89.29) Oct, Other Above note written by Koko Chavez CMA, Hearing Officer. Edited and approved by Dr. Paxton Cuellar MD. [facility] Other 04-11-2022 Evaluation note* Encounter Date Diagnosis Assessment Notes Treatment Notes Treatment Clinical Notes Aug, Spinal stenosis (ICD-10 - M48.00) Patients primary complaint today is low lumbar pain radiating into her right lower extremity. She previously experienced significant, senior care relief following a lumbar epidural steroid injection. Based on these results and current symptoms, patient is a candidate for a repeat lumbar epidural steroid injection which we will proceed with. Risks and benefits of procedure explained to patient; patient verbalizes understanding. denies any complaints of pain at this time. In the meantime, patient has a continued need for Tramadol up to two times daily as needed as well as Gabapentin. An OARRS report was processed and reviewed and shows no violations, as well as an opioid risk assessment being completed without concerns. She denies any significant opioid related side effects and appears to be compliant with this medication. The patient was counseled and educated regarding the risks and benefits of predatory animal exterminator opioid use. She understands the associated risks with this medication and agrees that it provides reasonable benefit in regards to her pain control and level of function. Tramadol was refilled today. Anatomy of spine discussed in detail with patient in regards to patients condition. Aug, Other spondylosis with radiculopathy, lumbar region (ICD-10 - M47.26) Aug, Other chronic pain (ICD-10 - G89.29) Aug, Other Above note writ ten by Koko Chavez CMA, Hearing Officer. Edited and approved by Dr. Paxton Cuellar MD. [facility] [employer] Other 01-12-2022 Evaluation note* Encounter Date Diagnosis Assessment Notes Treatment Notes Treatment Clinical Notes Jun, Spinal stenosis (ICD-10 - M48.00) Patient denies any complaints of pain at this time. She attributes this to a recent lumbar epidural steroid injection. We will continue to monitor and proceed with future alternative treatment options as needed. In the meantime, patient has a continued need for Tramadol up to two times daily as needed as well as Gabapentin. An OARRS report was processed and reviewed and shows no violations, as well as an opioid risk assessment being completed without concerns. She denies any significant opioid related side effects and appears to be compliant with this medication. The patient was counseled and educated regarding the risks and benefits of senior care opioid use. She understands the associated risks with this medication and agrees that it provides reasonable benefit in regards to her pain control and level of function. These medications were refilled today. Anatomy of spine discussed in detail with patient in regards to patients condition. We will follow up with the patient in three months, sooner if needed. Overall, patient believes their pain is reasonably well controlled and she is in agreement with our treatment plan. Jun, Other spondylosis with radiculopathy, lumbar region (ICD-10 - M47.26) Jun, Other chronic pain (ICD-10 - G89.29) Jun, Other Above note writ ten by Koko Chavez [facility], Hearing Officer. Edited and approved by Dr. Paxton Cuellar MD. [facility] Other 12-15-2021 Evaluation note* Encounter Date Diagnosis Assessment Notes Treatment Notes Treatment Clinical Notes May, Spinal stenosis (ICD-10 - M48.00) Patient's main complaint continues to be increasing low back pain radiating into the posterior aspect of her left lower extremity. Patient was seen by neurosurgery who discussed the option of surgery however they suggested further conservative measures. Based on MRI findings and persistent radiiating pain symptoms, patient is a candidate for a repeat lumbar epidural steroid injection which we will proceed with. Risks and benefits of procedure explained to patient; patient verbalizes understanding. Additionally, we will refill Gabapentin 300 mg three times daily. Risks and side effects of this medication was discussed in detail with the patient who voiced understanding. Anatomy of spine discussed in detail with patient in regards to patients condition. 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 Edited and approved by Dr. Paxton Cuellar MD. 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 Her spine appears to be osteoporotic I need to look at her DEXA scan officially I have ordered a 6 view lumbar spine in order to look for instability. Her alignment is very abnormal. Her MRI of the lumbar spine was independently reviewed showing moderate to severe L4-5 narrowing and severe spondylitic changes. I have asked the patient to get more shots through pain management I would like to see if they help. In addition she needs a 6 view lumbar spine film and I will see her back along with the DEXA scan and reevaluate her again. May, Spinal stenosis of lumbar region, unspecified whether neurogenic claudication present (ICD-10 - M48.061) [facility] Other 11-23-2021 Evaluation note* Encounter Date Diagnosis Assessment Notes Treatment Notes Treatment Clinical Notes Apr, Spinal stenosis (ICD-10 - M48.00) Patient's main complaint continues to be increasing low back pain radiating into the posterior aspect of her left lower extremity. Patient has failed multiple conservative treatment options including physical therapy, medication as well as injections. Recent MRI results show evidence of multilevel central and foraminal stenosis. Patient is requesting a referral to neurosurgery, which we will facilitate. In the meantime, she will continue on Gabapentin 300 MG three times daily. She does not need a refill at this time. Anatomy of spine discussed in detail with patient in regards to patients condition. 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 Edited and approved by Dr. Paxton Cuellar MD. [facility] Other 10-26-2021 Evaluation note* Encounter Date Diagnosis Assessment Notes Treatment Notes Treatment Clinical Notes Mar, Spinal stenosis (ICD-10 - M48.00) Patient's main complaint is her low back pain radiating into the posterior aspect of her bilateral lower extremities, most bothersome on the right. Patient has failed multiple conservative treatment options. Recent MRI results show evidence of significant spinal stenosis at L4/5 which is consistent with her symptoms. We discussed considering repeat lumbar epidurals on an as needed basis. We will trial the patient on Gabapentin 300 mg up to three times daily as tolerated. Risks and side effects of this medication was discussed in detail with the patient who voiced understanding. We will also refer her back to physical therapy per her request. Anatomy of spine discussed in detail with patient in regards to patients condition. 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 Edited and approved by Dr. Paxton Cuellar MD. [employer] Other Evaluation noteNo Information[facility] [employer] Other Evaluation note* Diagnosis Spinal stenosis of lumbar region, unspecified whether neurogenic claudication present- [facility] Paresthesia of skin documented in this encounter [facility]Evaluation [facility]* Diagnosis Hypertension, unspecified type (CMS/HCC) documented in this encounter [facility] HealthcareEvaluation [facility]* Diagnosis Other chronic pain Other spondylosis with radiculopathy, lumbar region documented in this encounter [facility] HealthcareEvaluation note* Diagnosis Carpal tunnel syndrome of left wrist- Primary documented in this encounter [facility] HealthcareEvaluation note* Diagnosis Paresthesia of skin documented in this encounter [facility]* Diagnosis Carpal tunnel syndrome of left wrist documented in this encounter [facility]* Diagnosis Rhinitis, unspecified type documented in this encounter [facility] HealthcareEvaluation note* Diagnosis Other chronic pain Other spondylosis with radiculopathy, lumbar region documented in this encounter [facility]* Diagnosis Medicare annual wellness visit, subsequent- Primary Essential hypertension (CMS/HCC) Unspecified essential hypertension Other spondylosis with radiculopathy, lumbar region Atherosclerosis of aorta (CMS/HCC) Atherosclerosis of aorta Aortic valve stenosis, etiology of cardiac valve disease unspecified Pulmonary fibrosis, unspecified (CMS/HCC) Dyslipidemia (CMS/HCC) Other and unspecified hyperlipidemia Age-related osteoporosis without current pathological fracture (CMS/HCC) Mild episode of recurrent major depressive disorder (HCC) (CMS/HCC) Morbid obesity (CMS/HCC) Morbid obesity Osteopenia, unspecified location Cardiac hypertrophy Cardiomegaly Other chronic pain Impaired fasting glucose Leukocytosis, unspecified type S/P laparoscopic cholecystectomy Other postprocedural status Gait disturbance Abnormality of gait Primary localized osteoarthrosis of shoulder region, unspecified laterality Moderate scoliosis Left knee pain, unspecified chronicity Renal calculus, bilateral Calculus of kidney Gastroesophageal reflux disease, unspecified whether esophagitis present Bilateral carpal tunnel syndrome Carpal tunnel syndrome Paresthesia of skin Ventricular hypertrophy determined by echocardiography Diverticulosis Diverticulosis of colon (without mention of hemorrhage) Uterovaginal prolapse Uterovaginal prolapse, unspecified Right hip pain Pain in joint, pelvic region and thigh Encounter for immunization Screening mammogram for breast cancer documented in this encounter [facility] HealthcareEvaluation note* Diagnosis Carpal tunnel syndrome of left wrist- Primary documented in this encounter [facility] HealthcareEvaluation note* Diagnosis Paresthesia of skin documented in this encounter [facility] HealthcareEvaluation note* Diagnosis Bilateral carpal tunnel syndrome Carpal tunnel syndrome documented in this encounter [facility] HealthcareEvaluation note* Diagnosis Essential hypertension (CMS/HCC)- Primary Unspecified essential hypertension Other chronic pain Other spondylosis with radiculopathy, lumbar region Gait disturbance Abnormality of gait Paresthesia of skin Atherosclerosis of aorta (CMS/HCC) Atherosclerosis of aorta Moderate scoliosis Impaired fasting glucose Dyslipidemia (CMS/HCC) Other and unspecified hyperlipidemia Mixed hyperlipidemia ([facility]) Mixed hyperlipidemia documented in this encounter [facility] HealthcareEvaluation note* Diagnosis Paresthesia of skin documented in this encounter [facility] HealthcareEvaluation note* Diagnosis Other chronic pain Other spondylosis with radiculopathy, lumbar region documented in this encounter [facility] HealthcareEvaluation note* Diagnosis Other chronic pain Other spondylosis with radiculopathy, lumbar region documented in this encounter [facility] HealthcareEvaluation note* Diagnosis Paresthesia of skin documented in this encounter [facility] HealthcareEvaluation note* Diagnosis Onset Date Resolution Status Admit Date Nausea and vomiting noneactive August 23, 2024 12:01pm [facility] Work Phone: History general Narrative - Reported* Type Description Date Medical History Seasonal allergic rhinitis, unsp ecified trigger Medical History Gastroesophageal ref lux disease, esophagitis presence not specified Medical History Vitamin D deficiency Medical History Benign essential HTN Medical History Biliary calculus of other site w ithout obstruction Medical History Primary osteoarthritis of right hip Medical History Hyperlipidemia, unspecified hype rlipidemia type Medical History Other congenital malformations o f uterus Medical History Osteopenia of left thigh Surgical History right hip replacement Surgical History cholecystectomy Hospitalization History see above [facility] Other Summary Purpose Family History Relationship Condition Age at Onset Recorded Date/T tita father Unknown Heart disease Unknown Diabetes mellitus Unknown mother Hypertension Unknown Unknown Advance Directives Advance Directive Response Recorded Date/ Time Advance Directives No July 10, 2017 12:55pm Reason for Referral Reason *FU 05/03 persiste nt low lumbar pain radiating into the posterior aspect of her left LE lumbar MRI with multilevel central and foraminal stenosis Diagnosis 1 Spinal stenosis (M48 .00) Referral Organization [facility] Referring Provider First Name Paxton Referring Provider Last Name Alisa Referring Provider Specialty Pain Medici ne Referred Organization [facility] Ne urosurgery Referred Provider Shun Rodgers Referred Address [address] ,[place], [place],[address] Referred Provider Specialty Neurological Surgery Referral Priority Routine General Notes Haritha Floyd 02:56:36 PM >p2p sent Chief Complaint and Reason for Visit Chief Complaint Admit Date Nausea, vomiting, loose stool, cough, co ngestion August 23, 2024 12:01pm Reason for Visit Admit Date Nausea and vomiting August 23, 2024 12: 01pm Additional Source Comments INFORMATION SOURCE (unrecogn ized section and content) DATE CREATED AUTHOR 02/04/2020 [facility] DATE CREATED AUTHOR AUTHOR'S ORGANIZ ATION 07/11/2021 [facility] DATE CREATED AUTHOR AUTHOR'S ORGANIZ ATION 10/13/2021 [facility] dical Specialist DATE CREATED AUTHOR AUTHOR'S ORGANIZ ATION 04/02/2022 [facility] DATE CREATED AUTHOR AUTHOR'S ORGANIZ ATION 08/19/2024 [facility] Special[facility] EPIC REASON FOR VISIT (unrecogniz ed section and content) Reason Comments New Patient Low back pain Reason Onset Date Comments Med Refill 07/04/2023 Reason Comments Med Refill Reason Onset Date Comments Med Refill 03/18/2024 Reason Onset Date Comments Med Refill 03/30/2024 Reason Comments Med Change Request Reason Onset Date Comments Med Refill 04/16/2024 Reason Comments Medicare Annual Wellness Visit Subsequen t Reason Onset Date Comments Med Refill 01/28/2024 Reason Comments Follow-up Pain, no better, no worse. Reason Onset Date Comments Med Refill 05/28/2024 Reason Onset Date Comments Med Refill 06/18/2024 Reason Onset Date Comments Med Refill 07/19/2024 Reason Onset Date Comments Med Refill 07/28/2024 Source Comments (unrecognize d section and content) In the event this informatio n is protected by the Federal Confidentiality of Alcohol and Drug Abuse Patient Records regulations: The Federal rules restrict any use of the information to criminally investigate or prosecute any alcohol or drug abuse patient.[facility] Care Teams (unrecognized sec tion and content) Medical And Scientific Illustrator Relationship Specialty Start Date End Date Radha Rajan CNP [address] [place] [address] Referring Family Medicine 03/14/22 Medical And Scientific Illustrator Relationship Specialty Start Date End Date Yulia Moyer MD PCP - General Family Medicine 11/01/22 Medical And Scientific Illustrator Relationship Specialty Start Date End Date Radha Rajan NP [address] [place] [address] PCP - [employer] 06/02/21 Yulia Moyer MD [address] [place] [address] PCP - General Family Medicine 11/05/23 Medical And Scientific Illustrator Relationship Specialty Start Date End Date Radha Rajan NP [address] [place] [address] PCP - [employer] 06/02/21 Yulia Moyer MD [address] [place] [address] PCP - General Family Medicine 11/05/23 Medical And Scientific Illustrator Relationship Specialty Start Date End Date Radha Rajan NP [address] [place] [address] PCP - [employer] 06/02/21 Yulia Moyer MD [address] [place] [address] PCP - General Family Medicine 11/05/23 Medical And Scientific Illustrator Relationship Specialty Start Date End Date Radha Rajan NP [address] [place] [address] PCP - [employer] 06/02/21 Yulia Moyer MD [address] [place] [address] PCP - General Family Medicine 11/05/23 Medical And Scientific Illustrator Relationship Specialty Start Date End Date Radha Rajan NP [address] [place] [address] PCP - [employer] 06/02/21 Yulia Moyer MD [address] [place] [address] PCP - General Family Medicine 11/05/23 Medical And Scientific Illustrator Relationship Specialty Start Date End Date Radha Rajan NP [address] [place] [address] PCP - [employer] 06/02/21 Yulia Moyer MD [address] [place] [address] PCP - General Family Medicine 11/05/23 Medical And Scientific Illustrator Relationship Specialty Start Date End Date Radha Rajan NP [address] [place] [address] PCP - [employer] 06/02/21 Yulia Moyer MD [address] [place] [address] PCP - General Family Medicine 11/05/23 Medical And Scientific Illustrator Relationship Specialty Start Date End Date Radha Rajan NP [address] [place] [address] PCP - [employer] 06/02/21 Yulia Moyer MD [address] [place] [address] PCP - General Family Medicine 11/05/23 Medical And Scientific Illustrator Relationship Specialty Start Date End Date Radha Rajan NP [address] [place] [address] PCP - [employer] 06/02/21 Yulia Moyer MD [address] [place] [address] PCP - General Family Medicine 11/05/23 Medical And Scientific Illustrator Relationship Specialty Start Date End Date Radha Rajan NP [address] [place] [address] PCP - [employer] 06/02/21 Yulia Moyer MD [address] [place] [address] PCP - General Family Medicine 11/05/23 Medical And Scientific Illustrator Relationship Specialty Start Date End Date Radha Rajan NP [address] [place] [address] PCP - [employer] 06/02/21 Yulia Moyer MD [address] [place] [address] PCP - General Family Medicine 11/05/23 Medical And Scientific Illustrator Relationship Specialty Start Date End Date Radha Rajan NP [address] [place] [address] PCP - [employer] 06/02/21 Yulia Moyer MD [address] [place] [address] PCP - General Family Medicine 11/05/23 Medical And Scientific Illustrator Relationship Specialty Start Date End Date Radha Rajan NP [address] [place] [address] PCP - [employer] 06/02/21 Yulia Moyer MD [address] [place] [address] PCP - General Family Medicine 11/05/23 Medical And Scientific Illustrator Relationship Specialty Start Date End Date Radha Rajan NP [address] [place] [address] PCP - [employer] 06/02/21 Yulia Moyer MD [address] [place] [address] PCP - General Family Medicine 11/05/23 Medical And Scientific Illustrator Relationship Specialty Start Date End Date Radha Rajan NP [address] [place] [address] PCP - [employer] 06/02/21 Yulia Moyer MD [address] [place] [address] PCP - General Family Medicine 11/05/23 Medical And Scientific Illustrator Relationship Specialty Start Date End Date Radha Rajan NP [address] [place] [address] PCP - Aet 06/02/21 Yulia Moyer MD [address] [facility] [place] [address] PCP - General Family Medicine 11/05/23 Medical And Scientific Illustrator Relationship Specialty Start Date End Date Radha Rajan NP [address] [place] [address] PCP - t 06/02/21 Yulia Moyer MD [address] [facility] [place] [address] PCP - General Family Medicine 11/05/23 Team Status: Active Member Role Status Keri Moyer MD Primary Care Provider Active Team Status: Inactive Member Role Status Keri Moyer MD Primary Care Provider Active Start: August 23, 2024 End: August 23, 2024 Shruthi Day APRN Attending Provider Active Start: August 23, 2024 End: August 23, 2024 Goals (unrecognized section and content) Goals may be documented in a n alternate section FOR RECORDS PERTAINING TO PATIENTS WHO ARE OR HAVE BEEN ENROLLED IN A CHEMICAL DEPENDENCY/SUBSTANCEABUSE PROGRAM, SOME INFORMATION MAY BE OMITTED. This clinical summary was aggregated from multiple sources. Caution should be exercised in using it in the provision of clinical care. This summary normalizes information from multiple sources, and as a consequence, information in this document may materially change the coding, format and clinical context of patient data. In addition, data may be omitted in some cases. CLINICAL DECISIONS SHOULD BE BASED ON THE PRIMARY CLINICAL RECORDS. [facility] [employer] [facility]. provides no warranty or guarantee of the accuracy or completeness of information in this document.
--- NOTE | 2024-08-26 10:43 | ECG_ITS ---
[facility] Test Date: 2024-08-26 Pat Name: SYLVIA MILLER Department: Room: - Gender: Female Emergency Worker: : 1950 Requested By: [id number] Order Number: [id number] Reading MD: ESME PULLIAM M.D. Measurements Intervals [place] Rate: 72 P: 44 PA: 172 QRS: -64 QRSD: 150 T: -15 QT: 438 QTc: 462 Interpretive Statements 1100 Sinus rhythm 2450 Right bundle branch block 2630 Left anterior fascicular block 4164 Twave abnormality, possible anterior ischemia 5233 Voltage criteria for LVH 9150 abnormal ECG Compared to ECG 08/24/2024 10:18:18 Left anterior fascicular block now present Possible ischemia now present Left ventricular hypertrophy now present Electronically Signed On 08-27-2024 19:16:44 EDT by ESME PULLIAM M.D.
--- NOTE | 2024-08-26 10:43 | ED.GENADUL1 ---
HPI HPI - General Adult General Chief complaint: Shortness of Breath/Dyspnea Stated complaint: PNEMONIA Time Seen by Provider: 08/26/24 10:38 Source: patient Mode of arrival: Wheelchair History of Present Illness HPI narrative: 74-year-old female sent in by her PCP to be evaluated for shortness of breath. 3 days ago she was diagnosed with influenza at an urgent care center. 2 days ago she was here and had chest x-ray and CT scan that showed patchy infiltrates. She was offered admission but apparently did not want to stay. She was discharged home on Ceftin and doxycycline and she states she has been taking those. She has had increased shortness of breath so she presented here. Related Data Home Medications ?Medication ?Instructions ?Recorded ?Confirmed atorvastatin 10 mg tablet 10 mg PO DAILY 08/24/24 08/26/24 baclofen 10 mg tablet 10 mg PO BEDTIME 08/24/24 08/26/24 cholecalciferol (vitamin D3) 125 125 mcg PO DAILY 08/24/24 08/26/24 mcg (5,000 unit) capsule esomeprazole magnesium 20 mg 20 mg PO Q24H 08/24/24 08/26/24 capsule,delayed release hydrochlorothiazide 25 mg tablet 25 mg PO DAILY 08/24/24 08/26/24 losartan 25 mg tablet 25 mg PO DAILY 08/24/24 08/26/24 montelukast 10 mg tablet 10 mg PO DAILY 08/24/24 08/26/24 nortriptyline 25 mg capsule 25 mg PO BEDTIME 08/24/24 08/26/24 oxcarbazepine 150 mg tablet 150 mg PO BID 08/24/24 08/26/24 pregabalin 100 mg capsule 100 mg PO DAILY 08/24/24 08/26/24 thiamine HCl (vitamin B1) 100 mg 100 mg PO DAILY 08/24/24 08/26/24 tablet tramadol 50 mg tablet 50 mg PO Q6H PRN pain 08/24/24 08/26/24 dexamethasone 2 mg tablet 2 mg PO Q24H 08/26/24 08/26/24 ondansetron 4 mg disintegrating 4 mg PO Q6H PRN nausea and vomiting 08/26/24 08/26/24 tablet Previous Rx's ?Medication ?Instructions ?Recorded albuterol sulfate 90 mcg/actuation 2 inh inhalation Q6H PRN shortness 08/24/24 aerosol inhaler of breath or wheezing #8.5 grams cefuroxime axetil 250 mg tablet 250 mg PO BID 10 days #20 tabs 08/24/24 doxycycline hyclate 100 mg capsule 100 mg PO BID 10 days #20 caps 08/24/24 Allergies Allergy/AdvReac Type Severity Reaction Status Date / Time duloxetine AdvReac Mild Nausea Verified 08/24/24 08:56 fluoxetine AdvReac Mild jittery Verified 08/24/24 08:56 hydrocodone AdvReac Mild Rash Verified 08/24/24 08:56 lisinopril AdvReac Mild Cough Verified 08/24/24 08:56 nabumetone AdvReac Mild itching Verified 08/24/24 08:56 Sulfa (Sulfonamide AdvReac Mild Rash Verified 08/24/24 08:56 Antibiotics) Opioid HPI Opioid Management Most Recent Opioid Data: Last Pain Scale 0 08/24/24 12:16 08/24/24 Last ED Pain Assessment 08/24/24 12:16 Last MAR Pain Assessment 08/24/24 11:37 Review of Systems ROS Narrative A ten point review of systems is negative except as noted above. [facility] Medical History (Updated 08/26/24 @ 11:46 by Slim Camargo MD) High cholesterol ?E78.00 - Pure hypercholesterolemia, unspecified (ICD-10) Spinal stenosis ?M48.00 - Spinal stenosis, site unspecified (ICD-10) Hypertension ?I10 - Essential (primary) hypertension (ICD-10) Surgical History (Updated 08/26/24 @ 11:42 by Karen Reaves RN) History of hip surgery ?Z98.890 - Other specified postprocedural states (ICD-10) Social History Little interest or pleasure in doing things: not at all Feeling down, depressed, or hopeless: not at all Exam Narrative Exam Narrative: Nurses note and vital signs reviewed and patient is not hypoxic. General: The patient appears well and in no apparent distress. Patient is resting comfortably on cart. Skin: Warm, dry, no pallor noted. There is no rash noted. Head: Normocephalic, atraumatic Eye: Normal conjunctiva, no drainage Ears, Nose, Mouth, and Throat: oral mucosa is moist. Nares patent. Cardiovascular: Regular Rate and Rhythm, not tachycardic Respiratory: Bilateral rhonchi throughout Back: non-tender GI: Soft and nontender Musculoskeletal: The patient has no evidence of calf tenderness, no pitting edema, symmetrical pulses noted bilaterally Neurological: A&O, normal speech Psychiatric: Cooperative Constitutional Vital Signs, click to edit/add: Last Vital Signs Temp 98.3 F 08/26/24 10:28 Pulse 70 08/26/24 11:27 Resp 20 08/26/24 10:28 BP 165/90 H 08/26/24 11:27 Pulse Ox 95 08/26/24 11:27 O2 Del Method Room Air 08/26/24 10:53 Course Vital Signs Vital signs: Vital Signs Temperature 98.3 F 08/26/24 10:28 Pulse Rate 55 L 08/26/24 10:28 Respiratory Rate 20 08/26/24 10:28 Blood Pressure 184/95 H 08/26/24 10:28 Pulse Oximetry 100 08/26/24 10:28 Temperature 98.3 F 08/26/24 10:28 Pulse Rate 70 08/26/24 11:27 Respiratory Rate 20 08/26/24 10:28 Blood Pressure 165/90 H 08/26/24 11:27 Pulse Oximetry 95 08/26/24 11:27 Oxygen Delivery Method Room Air 08/26/24 10:53 Medical Decision Making MDM Narrative Medical decision making narrative: The chest x-ray does not show infiltrates as was found 2 days ago. The BNP however is elevated, 3 times what it was 2 days ago. Chest x-ray does not show failure or infiltrates. She is being admitted for observation. The possibility that this is due to CHF is entertained. Treatment diagnosis and disposition were discussed with the patient. Differential Diagnosis Differential Diagnosis: Influenza, pneumonia, CHF Lab Data Lab results reviewed: Yes I reviewed the patient's lab results Labs: Lab Results 08/26/24 Range/Units 10:42 WBC 7.7 (4.0-11.0) 10^3/uL RBC 5.16 (4.20-5.40) 10^6/uL Hgb 15.5 (12.0-16.0) g/dL Hct 44.5 (36.0-48.0) % MCV 86.2 (81.0-99.0) fL MCH 30.0 (26.7-34.0) pg MCHC 34.8 (29.9-35.2) g/dL RDW 13.7 (11.0-15.0) % Plt Count 247 (150-450) 10^3/uL MPV 9.1 L (9.5-13.5) fL Neut % (Auto) 66.6 (43.0-75.0) % Lymph % (Auto) 19.6 L (20.5-60.0) % [place] % (Auto) 13.5 H (1.7-12.0) % Eos % (Auto) 0.1 L (0.9-7.0) % Baso % (Auto) 0.1 L (0.2-2.0) % Neut # (Auto) 5.1 (1.4-6.5) 10^3/uL Lymph # (Auto) 1.5 (1.2-3.8) 10^3/uL [place] # (Auto) 1.0 H (0.3-0.8) 10^3/uL Eos # (Auto) 0.0 (0.0-0.7) 10^3/uL Baso # (Auto) 0.0 (0.0-0.1) 10^3/uL Abs Immat Gran (auto) 0.01 (0.00-0.03) 10^3/uL Imm/Tot Granulo (auto) 0.1 (0.0-0.5) % Sodium 131 L (136-145) mmol/L Potassium 2.9 L* (3.5-5.1) mmol/L Chloride 90 L (98-107) mmol/L Carbon Dioxide 32.3 H (21.0-32.0) mmol/L Anion Gap 11.6 BUN 12.0 (7.0-18.0) mg/dL Creatinine 0.72 (0.55-1.02) mg/dL Est GFR ( Amer) >60 (>=60 mL/min/1.73m^2) Est GFR (Non-Af Amer) >60 (>=60 mL/min/1.73m^2) BUN/Creatinine Ratio 16.7 Glucose 110 H (74-106) mg/dL Lactate 1.1 (0.4-2.0) mmol/L Calcium 9.8 (8.5-10.1) mg/dL Troponin I High Sens 40.4 (4.0-51.3) pg/mL NT-Pro-B Natriuret Pep 3213.0 H* (<=900.0) pg/mL Imaging Data Chest x-ray: Radiologist's impression: Subsegmental atelectasis left lung base ECG Data Attestation: I personally reviewed and interpreted this ECG as follows: (EKG on my interpretation shows sinus rhythm with rate of 72) Discharge Plan Discharge Chief Complaint: Shortness of Breath/Dyspnea Clinical Impression: Influenza, Dyspnea Patient Disposition: Admitted as Observation Time of Disposition Decision: 11:45 Condition: Fair
[2024-08-26] MEDS: ALBUTEROL SULFATE 2.5 MG/3 ML VIAL NEB IH (10:52)
[2024-08-26 10:57] LABS: Basophils Percent Auto 0.1 % (0.2-2.0); Eosinophils Percent Auto 0.1 % (0.9-7.0); Hematocrit 44.5 % (36.0-48.0); Hemoglobin 15.5 g/dL (12.0-16.0); Immature Granulocytes Abs Auto 0.01 10^3/uL (0.00-0.03); Immature Granulocytes Pct Auto 0.1 % (0.0-0.5); Lymphocytes Absolute Auto 1.5 10^3/uL (1.2-3.8); Lymphocytes Percent Auto 19.6 % (20.5-60.0); Mean Corpuscular HGB Conc 34.8 g/dL (29.9-35.2); Mean Corpuscular Volume 86.2 fL (81.0-99.0); Mean Platelet Volume 9.1 fL (9.5-13.5); Monocytes Percent Auto 13.5 % (1.7-12.0); Neutrophils Absolute Auto 5.1 10^3/uL (1.4-6.5); Neutrophils Percent Auto 66.6 % (43.0-75.0); Platelet Count 247 10^3/uL (150-450); Red Blood Count 5.16 10^6/uL (4.20-5.40); Red Cell Distribution Width 13.7 % (11.0-15.0); White Blood Count 7.7 10^3/uL (4.0-11.0)
[2024-08-26 11:19] LABS: Lactate/Lactic Acid 1.1 mmol/L (0.4-2.0)
[2024-08-26 11:20] LABS: Anion Gap 11.6; BUN Creatinine Ratio 16.7; Calcium 9.8 mg/dL (8.5-10.1); Carbon Dioxide 32.3 mmol/L (21.0-32.0); Chloride 90 mmol/L (98-107); Estimated GFR (African America >60 (>=60 mL/min/1.73m^2); Estimated GFR (Non-African Ame >60 (>=60 mL/min/1.73m^2); Glucose 110 mg/dL (74-106); Sodium 131 mmol/L (136-145); Troponin I High Sensitivity 40.4 pg/mL (4.0-51.3)
[2024-08-26 11:23] LABS: Potassium 2.9 mmol/L (3.5-5.1)
[2024-08-26] MEDS: POTASSIUM BICARBONATE/CIT 25 MEQ TABLET EFF 50 MEQ PO (11:38)
[2024-08-26 14:01] LABS: Troponin I High Sensitivity 37.1 pg/mL (4.0-51.3)
--- NOTE | 2024-08-26 14:37 | SWNOTE1 ---
Medicare Outpatient Observation Notice reviewed and discussed with patient. Pt. verbalized understanding and signed the form. Original given to patient and copy placed in patient?s chart.
--- NOTE | 2024-08-26 14:37 | SWNOTE1 ---
SW met with pt to discuss dc needs. Pt lives at home with her and son. Pt does use a walker and cane at home. Pt has a few steps to get in the home and once she is in, then one floor. Pt voiced she has a chronic pinched nerve in her back. She stated she sleeps in a recliner as this brings some relief to back pain. Pt voiced she does not have any services coming in at this time and does not have any anticipated discharge needs. SW to follow as needed. SW advised pt that PT/OT was consulted and SW will review those therapy notes.
[2024-08-26] MEDS: TRAMADOL HCL 50 MG TABLET PO ×2 (14:55→21:01)
[2024-08-26] MEDS: ACETAMINOPHEN 500 MG TABLET 1000 MG PO (14:55)
[2024-08-26] MEDS: ENOXAPARIN SODIUM 40 MG/0.4 ML SYRINGE SUBQ (14:55)
[2024-08-26] MEDS: PANTOPRAZOLE SODIUM 40 MG TABLET.DR PO (14:56)
[2024-08-26] MEDS: ONDANSETRON PF 4 MG/2 ML VIAL IV (14:56)
[2024-08-26] MEDS: METHYLPREDNISOLONE SOD SUCC PF 125 MG/2 ML VIAL 60 MG IVP ×2 (14:56→21:00)
[2024-08-26] MEDS: CEFTRIAXONE 1,000 MG in 0.9 % SODIUM CHLORIDE 50 ML 100 MG IV (14:56)
[2024-08-26] MEDS: 0.9 % SODIUM CHLORIDE 250 ML 10 ML IV (15:16)
[2024-08-26] MEDS: LEVOFLOXACIN IN DEXTROSE 5 % 750 MG/150 ML PREMIX 100 MG IV (16:05)
[2024-08-26] MEDS: HYDRALAZINE HCL 20 MG/ML VIAL 10 MG IVP (16:27)
[2024-08-26] MEDS: IPRATROPIUM/ALBUTEROL SULFATE 3 ML AMPUL.NEB IH ×2 (19:36→23:24)
[2024-08-26] MEDS: OXcarbazepine 150 MG TABLET PO (20:59)
[2024-08-26] MEDS: BACLOFEN 10 MG TABLET PO (21:01)
[2024-08-27] VITALS (12 sets, daily range): BP systolic 90–134; BP diastolic 52–70; PULSE 80–93; TEMP 36.6–36.8; O2SAT 85–95
[2024-08-27] MEDS: METHYLPREDNISOLONE SOD SUCC PF 125 MG/2 ML VIAL 60 MG IVP ×4 (02:39→20:58)
[2024-08-27] MEDS: IPRATROPIUM/ALBUTEROL SULFATE 3 ML AMPUL.NEB IH ×6 (03:40→23:31)
[2024-08-27] MEDS: TRAMADOL HCL 50 MG TABLET PO ×3 (03:48→21:00)
--- NOTE | 2024-08-27 05:00 | XR_ITS ---
[address] [address] Patient Name: SYLVIA MILLER MRN: [id number] date: 1950 Sex: F Assigned Patient Location: [place] Current Patient Location: Accession/Order Number: [id number] Exam Date: 08/27/2024 08:31 Report Date: 08/27/2024 08:33 At the request of: ELHAM AMARAL MD Procedure: XR chest 1V Plain film chest Single view HISTORY: Shortness of breath. History of pneumonia COMPARISON: 08/26/2024 FINDINGS: SUPPORT DEVICES: None POSTSURGICAL CHANGES: None HEART: Within normal limits PULMONARY GEMINI: Within normal limits MEDIASTINUM: Unremarkable LUNGS AND PLEURA: Continued basilar atelectasis/scarring. No new consolidation. No pleural effusion or pneumothorax. BONY STRUCTURES: Intact ADDITIONAL FINDINGS None XR/XR chest 1V IMPRESSION: Continued basilar linear atelectasis/scarring. No new findings. Impression dictated by: Paul Rodriguez M.D.08/27/2024 8:33 AM Dictation Location: [facility] Electronically authenticated by: [id number] Y Date: 08/27/2024 08:33
[2024-08-27] MEDS: PANTOPRAZOLE SODIUM 40 MG TABLET.DR PO (06:00)
[2024-08-27 06:07] LABS: Hematocrit 41.6 % (36.0-48.0); Mean Corpuscular HGB Conc 33.7 g/dL (29.9-35.2); Mean Corpuscular Volume 86.3 fL (81.0-99.0); Mean Platelet Volume 9.7 fL (9.5-13.5); Platelet Count 273 10^3/uL (150-450); Red Blood Count 4.82 10^6/uL (4.20-5.40); Red Cell Distribution Width 13.8 % (11.0-15.0); White Blood Count 5.3 10^3/uL (4.0-11.0)
[2024-08-27 06:11] LABS: Anion Gap 13.4; BUN Creatinine Ratio 20.2; Calcium 8.9 mg/dL (8.5-10.1); Carbon Dioxide 30.8 mmol/L (21.0-32.0); Chloride 90 mmol/L (98-107); Estimated GFR (African America 60 (>=60 mL/min/1.73m^2); Estimated GFR (Non-African Ame 49 (>=60 mL/min/1.73m^2); Glucose 145 mg/dL (74-106); Potassium 3.2 mmol/L (3.5-5.1); Sodium 131 mmol/L (136-145)
[2024-08-27 06:44] LABS: Lymphocytes Absolute Manual 0.63 10^3/uL (1.20-3.80); Segmented Neut Absolute Manual 4.55 10^3/uL (1.4-6.5)
[2024-08-27] MEDS: CHOLECALCIFEROL (VITAMIN D3) 125 MCG/5,000 UNIT TABLET PO (09:35)
[2024-08-27] MEDS: MONTELUKAST SODIUM 10 MG TABLET PO (09:36)
[2024-08-27] MEDS: THIAMINE MONONITRATE (VIT B1) 100 MG TABLET PO (09:36)
[2024-08-27] MEDS: ATORVASTATIN CALCIUM 10 MG TABLET PO (09:36)
[2024-08-27] MEDS: PREGABALIN 100 MG CAPSULE PO (09:36)
[2024-08-27] MEDS: HYDROCHLOROTHIAZIDE 25 MG TABLET PO (09:36)
[2024-08-27] MEDS: OXcarbazepine 150 MG TABLET PO ×2 (09:36→20:58)
[2024-08-27] MEDS: LOSARTAN POTASSIUM 25 MG TABLET PO (09:36)
--- NOTE | 2024-08-27 10:50 | CA_ITS ---
Patient Name: SYLVIA MILLER MR#: [id number] : 1950 Exam Date: 08/27/2024 Ordering Doctor: DR Roshan Devlin . ECHOCARDIOGRAM REPORT PROCEDURE: CA ECHO DOPPLER COMPLETE INDICATIONS: Elevated BNP, dyspnea, pneumonia COMPARISON: None. DESCRIPTION: COMPLETE ECHOCARDIOGRAM Real-time transthoracic echocardiography with 2D, M-mode, spectral and color flow Doppler performed. QUALITY: Technical quality was adequate. LEFT VENTRICLE: Normal chamber size. Mild concentric left ventricular hypertrophy. Normal systolic function. LV EF: Normal left ventricular ejection fraction, (>55%). DIASTOLIC: Diastolic function is indeterminate. ATRIAL SEPTUM: LEFT ATRIUM: Normal chamber size. RIGHT ATRIUM: Normal chamber size. RIGHT VENTRICLE: Normal chamber size. Normal right ventricular systolic function. TRICUSPID VALVE: Normal mobility and thickness. No stenosis with no regurgitation. Unable to assess right-sided pressures due to lack of measurable tricuspid regurgitation. MITRAL VALVE: Normal mobility and thickness. No evidence of mitral valve stenosis. Mild mitral annular calcification. No mitral regurgitation. AORTIC VALVE: Normal trileaflet appearance. Mildly calcified aortic valve. Normal leaflet mobility. No evidence of aortic valve stenosis. No aortic regurgitation. AORTIC ROOT: Normal diameter and appearance, measuring 3.7 cm. Ascending aorta is mildly dilated (3.7 cm). PULMONIC VALVE: Normal thickness and mobility. No stenosis. No regurgitation. PERICARDIUM: No evidence of pericardial effusion. IVC: Not well visualized. PLEURA: CONCLUSION: 1. Mild concentric left ventricular hypertrophy with normal systolic function. Estimated LVEF is 55 to 60%. 2. Normal right ventricular size and systolic function. 3. Mildly calcified aortic valve with no stenosis. 4. No significant valvular dysfunction. 5. Unable to assess right-sided pressures due to lack of measurable tricuspid regurgitation. 6. Mildly dilated ascending aorta measuring 3.7 cm. Adult Echocardiography Procedure Report Left Ventricle LVEDD (3.7 - 5.6 cm): 4.70 cm LVESD (2.2 - 4.0 cm): 2.88 cm LVIVS thickness (0.6 - 1.2 cm): 1.24 cm LVPW thickness (0.5 - 1.0 cm): 1.16 cm e': 0.07 m/s E - e': 8.35 LVOT Max Gradient: 4.80 mm[Hg] LVOT Area (cm2): 1.09 m/s Peak Velocity (LVOT): 1.09 m/s Mean Velocity (LVOT): 0.75 m/s LVOT Diameter 2.14 cm Left Atrium LA Volume Index (2D A2C): 33.80 ml/m2 Left Atrium Systolic Dimension: 4.55 cm Mitral Valve MV E to A Ratio: 0.58 Mitral Valve A-Wave Peak Velocity: 0.96 m/s Mitral Valve E-Wave Peak Velocity: 0.56 m/s Right Ventricle Aorta AO Root Diam: 3.68 cm Ascending Ao Diam: 3.70 cm Aortic Valve AoV Area (Peak Neri): 2.44 cm2, 2.44 cm2 AoV Area (VTI): 2.74 cm2, 2.74 cm2 Peak Velocity(Antegrade Flow): 1.62 m/s Peak Gradient(Antegrade Flow): 10.48 mm[Hg] Mean Velocity(Antegrade Flow): 1.02 m/s Mean Gradient(Antegrade Flow): 5.04 mm[Hg] Velocity Time Integral: 28.68 cm Tricuspid Valve Pulmonic Valve Peak Velocity: 0.92 m/s Peak Gradient: 3.42 mm[Hg] Right Atrium Right Atrium Systolic Pressure: 41.67 ml, 41.67 ml Dictated by: Blane Ramirez M.D. on 08/27/2024 at 17:26 Approved by: Blane Ramirez M.D. on 08/27/2024 at 17:31
--- NOTE | 2024-08-27 11:08 | CM.NOTE ---
Rounds made with Dr. Devlin. Dr. Devlin reviews plan of care and explains abnormal labs. Echocardiogram ordered--Jennifer verbalizes understanding.
--- NOTE | 2024-08-27 11:13 | PM.HP ---
HPI H&P: HPI History of Present Illness Chief complaint: PNEUMONIA, INFLUENZA, DSPNEA Narrative: 74 y/o female to ER with SOB. Hasn't felt well for past week. To urgent care 08/23 and diagnosed with influenza A. Patient was outside window for tamiflu and told to treat symptoms. Continue SOB and weakness. To ER 08/24 and x-ray showed pneumonia. Normal SpO2 and no hypoxia. Discharged with Doxy and ceftin. Continued to have SOB and weakness. Seen by PCP and directed to ER. Chest x-ray improved. BNP elevated at 3210 up from 1090 on 08/24 but no evidence of fluid overload and clear lungs. Admitted for treatment. Started rocephin and levaquin. Started solu-medrol and duoneb. Breathing improved this am and normal SpO2 on room air. Opioid HPI Opioid Management Most Recent Pain and Opioid Data: Last Pain Scale 3 08/27/24 10:24 08/27/24 Last Pain Assessment 08/27/24 10:23 Last ED Pain Assessment 08/24/24 12:16 Last MAR Pain Assessment 08/27/24 10:24 Last ORT Total Score 0 08/26/24 13:16 08/26/24 Last ORT Risk Category Low Risk 08/26/24 13:16 08/26/24 Review of Systems ROS Constitutional Reports: fatigue; Denies: fever or chills Cardiovascular Denies: chest pain, palpitations or edema Respiratory Reports: shortness of breath and cough; Denies: wheezing Gastrointestinal Denies: abdominal pain, nausea, vomiting or diarrhea Genitourinary Denies: painful urination PFSH [facility] Medical History (Updated 08/27/24 @ 10:51 by Roshan Devlin MD) Prediabetes ?R73.03 - Prediabetes (ICD-10) Influenza ?J11.1 - Influenza due to unidentified influenza virus with other respiratory manifestations (ICD-10) Dyspnea ?R06.00 - Dyspnea, unspecified (ICD-10) High cholesterol ?E78.00 - Pure hypercholesterolemia, unspecified (ICD-10) Spinal stenosis ?M48.00 - Spinal stenosis, site unspecified (ICD-10) Surgical History (Updated 08/26/24 @ 11:42 by Karen Reaves RN) History of hip surgery ?Z98.890 - Other specified postprocedural states (ICD-10) Social History Highest level of school completed/degree received: Associate degree: academic program Little interest or pleasure in doing things: not at all Feeling down, depressed, or hopeless: not at all Meds Home Medications and Allergies Home Medications ?Medication ?Instructions ?Recorded ?Confirmed ?Type albuterol sulfate 90 mcg/actuation 2 inh inhalation Q6H PRN shortness 08/24/24 08/26/24 Rx aerosol inhaler of breath or wheezing #8.5 grams atorvastatin 10 mg tablet 10 mg PO DAILY 08/24/24 08/26/24 History baclofen 10 mg tablet 10 mg PO BEDTIME 08/24/24 08/26/24 History cholecalciferol (vitamin D3) 125 125 mcg PO DAILY 08/24/24 08/26/24 History mcg (5,000 unit) capsule esomeprazole magnesium 20 mg 20 mg PO Q24H 08/24/24 08/26/24 History capsule,delayed release hydrochlorothiazide 25 mg tablet 25 mg PO DAILY 08/24/24 08/26/24 History losartan 25 mg tablet 25 mg PO DAILY 08/24/24 08/26/24 History montelukast 10 mg tablet 10 mg PO DAILY 08/24/24 08/26/24 History oxcarbazepine 150 mg tablet 150 mg PO BID 08/24/24 08/26/24 History pregabalin 100 mg capsule 100 mg PO DAILY 08/24/24 08/26/24 History thiamine HCl (vitamin B1) 100 mg 100 mg PO DAILY 08/24/24 08/26/24 History tablet tramadol 50 mg tablet 50 mg PO Q6H PRN pain 08/24/24 08/26/24 History ondansetron 4 mg disintegrating 4 mg PO Q6H PRN nausea and vomiting 08/26/24 08/26/24 History tablet Allergies Allergy/AdvReac Type Severity Reaction Status Date / Time duloxetine AdvReac Mild Nausea Verified 08/24/24 08:56 fluoxetine AdvReac Mild jittery Verified 08/24/24 08:56 hydrocodone AdvReac Mild Rash Verified 08/24/24 08:56 lisinopril AdvReac Mild Cough Verified 08/24/24 08:56 nabumetone AdvReac Mild itching Verified 08/24/24 08:56 Sulfa (Sulfonamide AdvReac Mild Rash Verified 08/24/24 08:56 Antibiotics) Exam Constitutional Vital Signs, click to edit/add: Last Vital Signs Temp 98.3 F 08/27/24 10:00 Pulse 91 H 08/27/24 10:00 Resp 16 08/27/24 10:00 BP 130/65 08/27/24 10:00 Pulse Ox 89 L 08/27/24 10:00 O2 Del Method Room Air 08/27/24 10:00 Results Labs Labs: Short CBC 08/27/24 Range/Units 05:15 WBC 5.3 (4.0-11.0) 10^3/uL Hgb 14.0 (12.0-16.0) g/dL Hct 41.6 (36.0-48.0) % Plt Count 273 (150-450) 10^3/uL BMP 08/26/24 08/27/24 10:42 05:15 Sodium 131 L 131 L Potassium 2.9 L* 3.2 L Chloride 90 L 90 L Carbon Dioxide 32.3 H 30.8 BUN 12.0 22.0 H Creatinine 0.72 1.09 H Glucose 110 H 145 H Calcium 9.8 8.9 Assessment and Plan Assessment and Plan (1) Pneumonia: Qualifiers: Laterality: bilateral Lung location: lower lobe of lung Pneumonia type: due to unspecified organism Qualified Code(s): J18.9 - Pneumonia, unspecified organism (2) Influenza A: (3) Elevated brain natriuretic peptide (BNP) level: (4) Aortic stenosis, mild: (5) Hypertension: (6) Obesity, Class III, BMI 40-49.9 (morbid obesity): Plan Continue antibiotics, steroids, and breathing treatments. Resumed home medication. BNP elevated but imaging without evidence of fluid overload. Review of outpatient chart shows history of mild aortic stenosis and EF normal in 2021. Repeat echo. Start PT/OT for weakness. Encourage ambulation. If continues to improve likely home in am.
--- NOTE | 2024-08-27 11:52 | SWNOTE1 ---
SW received message from case management and therapy worked with patient and recommended home health. SW stopped in and spoke with pt and reviewed recommendations of home health. Pt is agreeable to this and has not had it in past. SW went over home health services with patient. SW provided patient with list from medicare.gov with star ratings. Pt would like to use [address] as they have a five star rating. Referral sent to [address] Referral included face sheet, ED note, H&P, provider notes, case management report, and PT/OT notes.
--- NOTE | 2024-08-27 13:26 | SWNOTE1 ---
SW called [facility] and she stated they do have referral and will call SW once they make determination.
[2024-08-27] MEDS: ENOXAPARIN SODIUM 30 MG/0.3 ML SYRINGE SUBQ (14:02)
[2024-08-27] MEDS: CEFTRIAXONE 1,000 MG in 0.9 % SODIUM CHLORIDE 50 ML 100 MG IV (14:03)
--- NOTE | 2024-08-27 14:35 | SWNOTE1 ---
KALEB spoke to [address] [facility] and they are able to accept. KALEB took packet to floor. KALEB faxed over CRF to [address]
[2024-08-27] MEDS: BACLOFEN 10 MG TABLET PO (21:00)
[2024-08-28] VITALS (11 sets, daily range): BP systolic 110–136; BP diastolic 59–63; PULSE 82–96; TEMP 36.4–36.7; O2SAT 90–95
[2024-08-28] MEDS: METHYLPREDNISOLONE SOD SUCC PF 125 MG/2 ML VIAL 60 MG IVP ×3 (01:48→18:06)
[2024-08-28] MEDS: IPRATROPIUM/ALBUTEROL SULFATE 3 ML AMPUL.NEB IH ×6 (03:54→23:57)
[2024-08-28] MEDS: PANTOPRAZOLE SODIUM 40 MG TABLET.DR PO (05:38)
[2024-08-28 06:18] LABS: Basophils Percent Auto 0.1 % (0.2-2.0); Eosinophils Percent Auto 0.3 % (0.9-7.0); Hematocrit 38.4 % (36.0-48.0); Hemoglobin 13.1 g/dL (12.0-16.0); Immature Granulocytes Abs Auto 0.05 10^3/uL (0.00-0.03); Immature Granulocytes Pct Auto 0.4 % (0.0-0.5); Lymphocytes Absolute Auto 0.8 10^3/uL (1.2-3.8); Lymphocytes Percent Auto 6.2 % (20.5-60.0); Mean Corpuscular HGB Conc 34.1 g/dL (29.9-35.2); Mean Corpuscular Hemoglobin 29.8 pg (26.7-34.0); Mean Corpuscular Volume 87.3 fL (81.0-99.0); Mean Platelet Volume 10.1 fL (9.5-13.5); Monocytes Absolute Auto 0.5 10^3/uL (0.3-0.8); Monocytes Percent Auto 3.6 % (1.7-12.0); Neutrophils Absolute Auto 11.2 10^3/uL (1.4-6.5); Neutrophils Percent Auto 89.4 % (43.0-75.0); Platelet Count 276 10^3/uL (150-450); Red Cell Distribution Width 14.2 % (11.0-15.0); White Blood Count 12.6 10^3/uL (4.0-11.0)
[2024-08-28 06:28] LABS: Anion Gap 11.4; BUN Creatinine Ratio 23.7; Calcium 8.7 mg/dL (8.5-10.1); Carbon Dioxide 31.1 mmol/L (21.0-32.0); Chloride 92 mmol/L (98-107); Estimated GFR (African America 27 (>=60 mL/min/1.73m^2); Estimated GFR (Non-African Ame 22 (>=60 mL/min/1.73m^2); Glucose 173 mg/dL (74-106); Potassium 3.5 mmol/L (3.5-5.1); Sodium 131 mmol/L (136-145)
[2024-08-28] MEDS: ACETAMINOPHEN 500 MG TABLET 1000 MG PO (08:24)
[2024-08-28] MEDS: CHOLECALCIFEROL (VITAMIN D3) 125 MCG/5,000 UNIT TABLET PO (08:24)
[2024-08-28] MEDS: THIAMINE MONONITRATE (VIT B1) 100 MG TABLET PO (08:25)
[2024-08-28] MEDS: PREGABALIN 100 MG CAPSULE PO (08:25)
[2024-08-28] MEDS: TRAMADOL HCL 50 MG TABLET PO ×2 (08:25→21:47)
[2024-08-28] MEDS: OXcarbazepine 150 MG TABLET PO ×2 (08:25→21:47)
[2024-08-28] MEDS: ATORVASTATIN CALCIUM 10 MG TABLET PO (08:25)
[2024-08-28] MEDS: MONTELUKAST SODIUM 10 MG TABLET PO (08:25)
--- NOTE | 2024-08-28 09:01 | P.PN_ITS ---
Progress Note: Subjective Subjective Interval history: Patient without complaint this morning feels better since he been on the steroids at least in terms of an arthritis standpoint, cough persisting Exam Constitutional Vital Signs, click to edit/add: Last Vital Signs Temp 98.1 F 08/28/24 08:00 Pulse 92 H 08/28/24 08:00 Resp 20 08/28/24 08:00 BP 117/59 08/28/24 08:00 Pulse Ox 92 L 08/28/24 08:00 O2 Del Method Room Air 08/28/24 08:00 Documenting provider has reviewed patient's vital signs: yes Common normals: no apparent distress Chest Common normals: inspection of chest normal and palpation of chest normal Respiratory Common normals: normal respiratory effort and no retractions Auscultation: rhonchi Cardio Common normals: regular rate, regular rhythm and no murmurs GI Common normals: negative for Normal to inspection, nondistended, normoactive bowel sounds present (Morbid obesity) Progress Note: Objective Labs Labs: Short CBC 08/28/24 Range/Units 05:46 WBC 12.6 H (4.0-11.0) 10^3/uL Hgb 13.1 (12.0-16.0) g/dL Hct 38.4 (36.0-48.0) % Plt Count 276 (150-450) 10^3/uL BMP 08/28/24 05:46 Sodium 131 L Potassium 3.5 Chloride 92 L Carbon Dioxide 31.1 BUN 51.0 H Creatinine 2.15 H Glucose 173 H Calcium 8.7 Progress Note: A&P Assessment and Plan (1) Pneumonia: Qualifiers: Laterality: bilateral Lung location: lower lobe of lung Pneumonia type: due to unspecified organism Qualified Code(s): J18.9 - Pneumonia, unspecified organism (2) Influenza A: (3) Elevated brain natriuretic peptide (BNP) level: (4) Aortic stenosis, mild: (5) Hypertension: (6) Obesity, Class III, BMI 40-49.9 (morbid obesity): Plan Admission findings: Sinus tachycardia, uncontrolled hypertension, acute hypoxia normal white blood cell count but with left shift consistent with bacterial process, significant hyponatremia and hypokalemia due to pneumonia Community-acquired bibasilar pneumonia complicated by acute exacerbation of asthma-continue with current antibiotics, white blood cell count is elevated but that may be steroid-induced, try to obtain sputum culture, Influenza A: Overall improving Elevated brain natriuretic peptide (BNP) level:-Slightly improved today, but kidney test are worse today, hold off on hydrochlorothiazide Acute kidney injury stage II-baseline creatinine of 0.72, creatinine today of 2.15 which is 299.9% above baseline resulting in stage II acute kidney injury, fluid bolus today, check ultrasound of kidneys today Aortic stenosis, mild: Stable Hypertension: Maintain current medications Obesity, Class III, BMI 40-49.9 (morbid obesity): Diet management Hyponatremia-stable but not improving, fluid resuscitation today Hypokalemia-improved to normal Steroid-induced hyperglycemia-continue to follow Peripheral neuropathy continue with home medications Hypercholesterolemia-continue with home medications Depression-continue with home medications Admission status: Patient placed in observation for community-acquired pneumonia with acute hypoxia, hypoxia improving, white blood cell count is elevated today but kidney injury is significantly elevated today, medically necessary treatment will span 2 midnights. Inpatient status
--- NOTE | 2024-08-28 09:31 | PT.DAILY ---
Physical Therapy Daily Note PT Daily Note/Assess Start: 08/28/24 09:27 Freq: Status: Active Protocol: Document 08/28/24 09:29 ALICE (Rec: 08/28/24 09:31 ALICE [id number]) Physical Therapy Daily Note/Assessment Time In/Time Out Time In 08:30 Time Out 08:41 Pain In Pain N/A Pain Out Pain N/A Subjective Subjective Pt supine upon arrival. Agreeable to PT. Feeling much better today but staying one more night due to Kidney function per pt. Therapeutic Exercise Time Therapeutic Exercise 3 Minutes (minutes) Therapeutic Exercise 0 Units Therapeutic Exercise Treatment Therapeutic Exercise Bilat LE strengthening ex complete while sitting EOB Treatment unsupported 10x ea. Therapeutic Activity Time Therapeutic Activity 7 Minutes (minutes) Therapeutic Activity 1 Units Therapeutic Activity Treatment Bed Mobility Ability Standby Assistance Chair Transfer Standby Assistance Ability Therapeutic Activity Supine>sit SBA with increased time. Sits EOB 3 min Comments unsupported for seated ex. Sit>stand SBA and amb with RW 45' SBA. No LOB. Walker needed adjusted before amb. Returned to supine SBA with increased time. Call light within reach and needs met. Total Physical Therapy Time Total Therapy 10 Minutes Total Physical 1 Therapy Units Summary Daily Note Summary Improved gait endurance and transfer ability.
[2024-08-28] MEDS: 0.9 % SODIUM CHLORIDE 1,000 ML 250 ML IV (10:16)
[2024-08-28] MEDS: ENOXAPARIN SODIUM 30 MG/0.3 ML SYRINGE SUBQ (14:47)
[2024-08-28] MEDS: LEVOFLOXACIN 500 MG TABLET PO (14:47)
[2024-08-28] MEDS: CEFTRIAXONE 1,000 MG in 0.9 % SODIUM CHLORIDE 50 ML 100 MG IV (14:47)
[2024-08-28] MEDS: 0.9 % SODIUM CHLORIDE 1,000 ML 100 ML IV (16:45)
[2024-08-28] MEDS: BACLOFEN 10 MG TABLET PO (21:47)
[2024-08-29 00:16] VITALS: BP 138/61; PULSE 96; TEMP 37.3; O2SAT 90
[2024-08-29] MEDS: METHYLPREDNISOLONE SOD SUCC PF 125 MG/2 ML VIAL 60 MG IVP ×2 (02:25→09:50)
[2024-08-29 03:59] VITALS: PULSE 93; O2SAT 90
[2024-08-29] MEDS: IPRATROPIUM/ALBUTEROL SULFATE 3 ML AMPUL.NEB IH ×2 (03:59→07:29)
[2024-08-29 04:00] VITALS: BP 136/65; PULSE 92; TEMP 37.2; O2SAT 90
[2024-08-29] MEDS: 0.9 % SODIUM CHLORIDE 1,000 ML 100 ML IV (05:33)
[2024-08-29] MEDS: TRAMADOL HCL 50 MG TABLET PO (05:35)
[2024-08-29] MEDS: PANTOPRAZOLE SODIUM 40 MG TABLET.DR PO (05:35)
[2024-08-29 06:40] LABS: Anion Gap 13.4; BUN Creatinine Ratio 29.6; Calcium 8.5 mg/dL (8.5-10.1); Chloride 99 mmol/L (98-107); Estimated GFR (African America 51 (>=60 mL/min/1.73m^2); Estimated GFR (Non-African Ame 42 (>=60 mL/min/1.73m^2); Glucose 169 mg/dL (74-106); Potassium 3.4 mmol/L (3.5-5.1); Sodium 139 mmol/L (136-145)
[2024-08-29 07:30] VITALS: PULSE 84; O2SAT 91
[2024-08-29 07:48] LABS: Basophils Percent Auto 0.1 % (0.2-2.0); Eosinophils Percent Auto 0.3 % (0.9-7.0); Hematocrit 40.1 % (36.0-48.0); Hemoglobin 13.8 g/dL (12.0-16.0); Immature Granulocytes Abs Auto 0.08 10^3/uL (0.00-0.03); Immature Granulocytes Pct Auto 0.6 % (0.0-0.5); Lymphocytes Absolute Auto 0.8 10^3/uL (1.2-3.8); Lymphocytes Percent Auto 5.4 % (20.5-60.0); Mean Corpuscular HGB Conc 34.4 g/dL (29.9-35.2); Mean Corpuscular Hemoglobin 30.1 pg (26.7-34.0); Mean Corpuscular Volume 87.4 fL (81.0-99.0); Mean Platelet Volume 9.8 fL (9.5-13.5); Monocytes Absolute Auto 0.6 10^3/uL (0.3-0.8); Monocytes Percent Auto 4.5 % (1.7-12.0); Neutrophils Absolute Auto 12.4 10^3/uL (1.4-6.5); Neutrophils Percent Auto 89.1 % (43.0-75.0); Platelet Count 309 10^3/uL (150-450); Red Blood Count 4.59 10^6/uL (4.20-5.40); Red Cell Distribution Width 14.6 % (11.0-15.0); White Blood Count 13.9 10^3/uL (4.0-11.0)
--- NOTE | 2024-08-29 09:15 | P.DS_ITS ---
DS: Providers Provider Date of admission: 08/28/24 09:00 Primary care physician: JOSEPH KIM Consults: 08/26/24 13:04 Occupational Therapy Eval and Treat Routine Reason for consultation: Weakness Physical Therapy Eval and Treat Routine Reason for consultation: Weakness DS: Diagnosis Discharge Diagnosis (1) Pneumonia: Qualifiers: Laterality: bilateral Lung location: lower lobe of lung Pneumonia type: due to unspecified organism Qualified Code(s): J18.9 - Pneumonia, unspecified organism (2) Influenza A: (3) Elevated brain natriuretic peptide (BNP) level: (4) Aortic stenosis, mild: (5) Hypertension: (6) Obesity, Class III, BMI 40-49.9 (morbid obesity): Plan Admission findings: Sinus tachycardia, uncontrolled hypertension, acute hypoxia normal white blood cell count but with left shift consistent with bacterial process, significant hyponatremia and hypokalemia due to pneumonia Community-acquired bibasilar pneumonia complicated by acute exacerbation of asthma-continue with current antibiotics, white blood cell count is elevated but that may be steroid-induced, try to obtain sputum culture, Influenza A: Overall improving Elevated brain natriuretic peptide (BNP) level:-Slightly improved today, but kidney test are worse today, hold off on hydrochlorothiazide Acute kidney injury stage II-baseline creatinine of 0.72, creatinine today of 2.15 which is 299.9% above baseline resulting in stage II acute kidney injury, fluid bolus today, check ultrasound of kidneys today Aortic stenosis, mild: Stable Hypertension: Maintain current medications Obesity, Class III, BMI 40-49.9 (morbid obesity): Diet management Hyponatremia-stable but not improving, fluid resuscitation today Hypokalemia-improved to normal Steroid-induced hyperglycemia-continue to follow Peripheral neuropathy continue with home medications Hypercholesterolemia-continue with home medications Depression-continue with home medications DS: Summary Hospital Course Hospital Course: Patient admitted with Sinus tachycardia, uncontrolled hypertension, acute hy poxia normal white blood cell count but with left shift consistent with bacterial process, significant hyponatremia and hypokalemia due to pneumonia. Treated with antibiotics, aerosol treatments, patient was improved but had significant elevation in her creatinine resulting in acute injury stage II, she was given fluids overnight increased her p.o. intake and her creatinine is still elevated but much improved from previous day she feels much improved, at this point we will discharge patient to home in improving condition. Medications see list. Follow-up with PCP within the next week. Time Spent with Patient Time attestation: Total time spent providing and/or coordinating discharge services: Exam Constitutional Vital Signs, click to edit/add: Last Vital Signs Temp 98.9 F 08/29/24 04:00 Pulse 84 08/29/24 07:30 Resp 18 08/29/24 04:00 BP 136/65 08/29/24 04:00 Pulse Ox 91 L 08/29/24 07:30 O2 Del Method Room Air 08/29/24 07:30 Documenting provider has reviewed patient's vital signs: yes Common normals: no apparent distress Respiratory Common normals: normal respiratory effort and no retractions Auscultation: rhonchi Cardio Common normals: regular rate and regular rhythm GI Common normals: negative for Normal to inspection, nondistended, normoactive bowel sounds present (Morbid obesity) DS: Data Data Completed and Pending Labs on day of discharge: Labs from last 24 hours 08/29/24 05:39 WBC 13.9 H RBC 4.59 Hgb 13.8 Hct 40.1 MCV 87.4 MCH 30.1 MCHC 34.4 RDW 14.6 Plt Count 309 MPV 9.8 Neut % (Auto) 89.1 H Lymph % (Auto) 5.4 L [place] % (Auto) 4.5 Eos % (Auto) 0.3 L Baso % (Auto) 0.1 L Neut # (Auto) 12.4 H Lymph # (Auto) 0.8 L [place] # (Auto) 0.6 Eos # (Auto) 0.0 Baso # (Auto) 0.0 Abs Immat Gran (auto) 0.08 H Imm/Tot Granulo (auto) 0.6 H Sodium 139 Potassium 3.4 L Chloride 99 Carbon Dioxide 30.0 Anion Gap 13.4 BUN 37.0 H Creatinine 1.25 H Est GFR ( Amer) 51 L Est GFR (Non-Af Amer) 42 L BUN/Creatinine Ratio 29.6 Glucose 169 H Calcium 8.5 Preliminary micro results at discharge 08/26/24 10:53 Blood Culture Result 2 - Preliminary Blood NO GROWTH AT 36-48 HOURS. FINAL TO FOLLOW. 08/26/24 10:42 Blood Culture Result 1 - Preliminary Blood - Right Antecubital NO GROWTH AT 36-48 HOURS. FINAL TO FOLLOW. Discharge Plan Discharge Disposition: Home, Self-Care Condition: Fair Discharge Medications: New prednisone 10 mg tablet 30 mg PO DAILY Qty: 20 0RF Rx Instructions: 5/day for 3 days. 4/day for 3 days, 3/day for 3 days, 2/day for 3 days, 1/day for 3 days, 1/2 /day for 4 days levofloxacin 500 mg tablet 500 mg PO DAILY 7 Days Qty: 7 0RF Continued atorvastatin 10 mg tablet 10 mg PO DAILY baclofen 10 mg tablet 10 mg PO BEDTIME cholecalciferol (vitamin D3) 125 mcg (5,000 unit) capsule 125 mcg PO DAILY esomeprazole magnesium 20 mg capsule,delayed release(DR/EC) 20 mg PO Q24H hydrochlorothiazide 25 mg tablet 25 mg PO DAILY losartan 25 mg tablet 25 mg PO DAILY montelukast 10 mg tablet 10 mg PO DAILY oxcarbazepine 150 mg tablet 150 mg PO BID pregabalin 100 mg capsule 100 mg PO DAILY tramadol 50 mg tablet 50 mg PO Q6H PRN (Reason: pain) thiamine HCl (vitamin B1) 100 mg tablet 100 mg PO DAILY albuterol sulfate 90 mcg/actuation HFA aerosol inhaler 2 inh inhalation Q6H PRN (Reason: shortness of breath or wheezing) Qty: 8.5 0RF ondansetron 4 mg tablet,disintegrating 4 mg PO Q6H PRN (Reason: nausea and vomiting) Activity: resume usual activities as tolerated Diet: regular diet Print Language: Swedish Patient Instructions: Heart Failure (DC), Influenza (DC), Community Acquired Pneumonia (DC), Dyspnea (DC) Bargain Table Clerk/Template Storage Clerk Instructions: [facility] home [facility] services. Phone number is [phone]. They should contact within 48 hours of discharge. Forms: Portal Instructions Follow Up Appointments: Follow up with Dr Kim in 2-3 days [phone] Discharge location: Home with [facility]
[2024-08-29] MEDS: THIAMINE MONONITRATE (VIT B1) 100 MG TABLET PO (09:50)
[2024-08-29] MEDS: OXcarbazepine 150 MG TABLET PO (09:50)
[2024-08-29] MEDS: CHOLECALCIFEROL (VITAMIN D3) 125 MCG/5,000 UNIT TABLET PO (09:50)
[2024-08-29] MEDS: MONTELUKAST SODIUM 10 MG TABLET PO (09:50)
[2024-08-29] MEDS: PREGABALIN 100 MG CAPSULE PO (09:50)
[2024-08-29] MEDS: ATORVASTATIN CALCIUM 10 MG TABLET PO (09:50)
[2024-08-29 10:05] VITALS: BP 133/64; PULSE 92; TEMP 37.2; O2SAT 91
--- NOTE | 2024-08-29 11:44 | PC.NURSE ---
ticket writer notified med [facility] of patients discharge. DC med rec, crf and DC summary all faxed
== END 2024-08-29 12:22 | disposition home health service (06) | DRG 194 ==
LOC: ER 11:46 → MS 12:56
PROVIDERS: Admitting Provider Family Medicine; Emergency Provider Emergency Medicine; PCP Family Medicine; Visit Provider Family Medicine
DX: J10.00 Influenza due to other identified influenza virus with unspecified type of pneumonia (principal); E87.1 Hypo-osmolality and hyponatremia; J45.901 Unspecified asthma with (acute) exacerbation; N17.9 Acute kidney failure, unspecified; Z68.42 Body mass index [BMI] 45.0-49.9, adult; I35.0 Nonrheumatic aortic (valve) stenosis; I10 Essential (primary) hypertension; R79.89 Other specified abnormal findings of blood chemistry; E78.00 Pure hypercholesterolemia, unspecified; R73.03 Prediabetes; Z79.899 Other long term (current) drug therapy; R06.00 Dyspnea, unspecified; E66.01 Morbid (severe) obesity due to excess calories; R09.02 Hypoxemia; E87.6 Hypokalemia; R73.9 Hyperglycemia, unspecified; T38.0X5A Adverse effect of glucocorticoids and synthetic analogues, initial encounter; G62.9 Polyneuropathy, unspecified; F32.A Depression, unspecified; D72.829 Elevated white blood cell count, unspecified
CPT/HCPCS: 36415; 71045; 76770; 80048; 83605; 83880; 84484; 85007; 85025; 85027; 87040; 93005; 93306; 94640; 94667; 94668; 94761; 96365; 96366; 96368; 96372; 96375; 96376; 97161; 97165; 97530; 99285; G0378; J0360; J0696; J1650; J2405; J2919

== ENCOUNTER 2025-05-17 09:44 | Emergency (ER) | payer MEDICARE, SELFPAY ==
--- OUTSIDE RECORDS SUMMARY | 2025-05-13 11:30 | XMS_ITS | Encounter Summary ---
Author Organization [facility] Healthcare Address [address] [place] [address] Care Team Providers Care Frog Shaker Name Role Phone Radha Rajan [employer]LECT[employer]IAN [employer]IP Unavailable [phone] Leopoldo Wayne MD Primary Care Provider [phone] Encounter Details DateTypeDepartmentCare Team (Latest Contact Info)Oolyqmreiih61/12/2025 11:30 AM ESTAncillary Procedure [facility] [address] [place] [phone] Encounter for breast cancer screening using non-mammogram modality Social History Tobacco UseTypesPacks/DayYears UsedDateSmoking Tobacco: NeverSmokeless Tobacco: NeverAlcohol UseStandard Drinks/WeekCommentsNot Currently0 (1 standard drink = 0.6 oz pure alcohol)Caffeine: 1-2 cups/dayHumiliation, Afraid, Rape, and Kick questionnaireAnswerDate RecordedWithin the last year, have you been afraid of your partner or ex-partner?No02/07/2023Within the last year, have you been humiliated or emotionally abused in other ways by your partner or ex-partner?No 02/07/2023Within the last year, have you been kicked, hit, slapped, or otherwise physically hurt by your partner or ex-partner?No02/07/2023Within the last year, have you been raped or forced to have any kind of sexual activity by your part ner or ex-partner?No02/07/2023Social Connection and Isolation PanelAnswerDate RecordedIn a typical week, how many times do you talk on the phone with family, friends, or neighbors?More than three times a week02/07/2023How often do you get together with friends or relatives?More than three times a week02/07/2023How often do you attend nondenominational or synagogue services?1 to 4 times per year02/07/2023 Do you belong to any clubs or organizations such as nondenominational groups, unions, fraternal or athletic groups, or school groups?No02/07/2023How often do you attend meetings of the clubs or organizations you belong to?Never02/07/2023re you , , , , never , or living with a partner?Lziozrt2702/07/2023UDIT-CAnswerDate RecordedQ1: How often do you have a drink containing alcohol?Never2024Q2: How many drinks containing alcohol do you have on a typical day when you are drinking?Patient does not drink 2024Q3: How often do you have six or more drinks on one occasion?Never 2024Overall Financial Resource Strain (CARDIA)AnswerDate RecordedHow hard is it for you to pay for the very basics like food, housing, medical care, and heating?Not hard at all02/07/2023HQ-2AnswerDate RecordedPatient Health Questionnaire-2 [id number] hospital [place] of Occupational Health - Occupational Stress QuestionnaireAnswerDate RecordedDo you feel stress - tense, restless, nervous, or anxious, or unable to sleep at night because yourmind is troubled all the time - these days?To some hnwtyk0802/07/2023Exercise Vital Sign AnswerDate RecordedOn average, how many days per week do you engage in moderate to strenuous exercise (like a brisk walk)?0 days02/07/2023Minutes of Exercise per SessionNot on file02/07/2023Hunger Vital SignAnswerDate RecordedWithin the past 12 months, you worried that your food would run out before you got the money to buymore.Never true02/07/2023Ran Out of Food in the Last YearNot on file 02/07/2023RAPARE - TransportationAnswerDate RecordedIn the past 12 months, has lack of transportation kept you from medical appointments or from getting medications?No02/07/2023In the past 12 months, has lack of transportation kept you from meetings, work, or from getting things needed for daily living?No 02/07/2023Housing Stability Vital SignAnswerDate RecordedIn the last 12 months, was there a time when you were not able to pay the mortgage or rent on time?No 02/07/2023In the last 12 months, how many places have you lived?In the last 12 months, was there a time when you did not have a steady place to sleep or slept in ashelter (including now)?No02/07/2023CommentsUnknown Sex and Gender InformationValueDate RecordedSex Assigned at BirthFemale 11/01/2022 9:13 AM EDTLegal LddWbqcpa47/15/2023 7:33 PM EDTGender IdentityFemale 11/01/2022 9:13 AM EDTSexual OrientationNot on filedocumented as of this encounter Plan of Treatment DateTypeDepartmentCare Team (Latest Contact Info)Rewgzvwandb68/02/2026 11:00 AM ESTOffice Visit [facility] [address] [place] [phone] Tatum Madera, WADE [address] [place] [address] documented as of this encounter Procedures Procedure NamePriorityDate/TimeAssociated DiagnosisCommentsBI MAMMOGRAM SCREENING TOMOSYNTHESIS OCQTKCUDNNjuvqup56/12/2025 11:56 AM EST Encounter for breast cancer screening using non-mammogram modality documented in this encounter Results * Bilateral screening mammogram with tomosynthesis (05/13/2025 11:56 AM EST) Anatomical RegionLateralityModalityBreastBilateralMammographySpecimen (Source) Anatomical Location / LateralityCollection Method / VolumeCollection Time Received Time05/14/2025 11:35 AM EST Impressions 05/14/2025 11:42 AM EST Impression: No specific evidence of malignancy seen in either breast. BIRADS 2 - Benign Findings DENSITY: The breasts are almost entirely fatty. FOLLOW-UP: Routine Screening Mammogram Board Certified Radiologists. ??Accredited by the ACR and FDA. MAMMOGRAPHY IS VERY IMPORTANT TO YOUR HEALTH. ??THE [place]ITISH CANCER SOCIETY GUIDELINES RECOMMEND THAT WOMEN 40 YEARS OF AGE AND OLDER SHOULD HAVE A MAMMOGRAM EVERY YEAR. A REMINDER LETTER WILL BE SENT AT THE APPROPRIATE TIME. ?? ELECTRONICALLY SIGNED BY: Jamil Qiu M.D. Narrative 05/14/2025 11:42 AM EST Examination: BI MAMMOGRAM SCREENING TOMOSYNTHESIS BILATERAL Clinical History: screening Technique: Screening digital mammography study of both breasts was performed with 2-D and 3-D tomosynthesis imaging. Study was compared to the prior exam dated 04/14/2024. Findings: There is no evidence of interval dominant spiculated mass, grouped microcalcifications, or skin thickening which would be suggestive of malignancy. ?? Mild scattered benign-appearing calcifications are seen bilaterally. Benign- appearing asymmetric density on the right posterolaterally similar to the prior study. Axillary lymph nodes including partially visualized lymph nodes are noted bilaterally and appear similar to the prior reviewed studies dating back to 10/12/2021. Procedure Note Jamil Qiu MD - 05/14/2025 Examination: BI MAMMOGRAM SCREENING TOMOSYNTHESIS BILATERAL Clinical History: screening Technique: Screening digital mammography study of both breasts wasperformed with 2-D and 3-D tomosynthesis imaging. Study was compared tothe prior exam dated 04/14/2024. Findings: There is no evidence of interval dominant spiculated mass,grouped microcalcifications, or skin thickening which would be suggestiveof malignancy. Mild scattered benign-appearing calcifications are seen bilaterally.Benign- appearing asymmetric density on the right posterolaterally similarto the prior study. Axillary lymph nodes including partially visualizedlymph nodes are noted bilaterally and appear similar to the prior reviewedstudies dating back to 10/12/2021. IMPRESSION: Impression: No specific evidence of malignancy seen in either breast. BIRADS 2 - Benign Findings DENSITY: The breasts are almost entirely fatty. FOLLOW-UP: Routine Screening Mammogram Board Certified Radiologists. Accredited by the ACR and FDA. MAMMOGRAPHY IS VERY IMPORTANT TO YOUR HEALTH. THE BRITISH CANCER SOCIETY GUIDELINES RECOMMEND THAT WOMEN 40 YEARS OF AGE AND OLDER SHOULD HAVE AMAMMOGRAM EVERY YEAR. A REMINDER LETTER WILL BE SENT AT THE APPROPRIATE TIME. ELECTRONICALLY SIGNED BY: Jamil Qiu M.D. Authorizing ProviderResult TypeResult StatusSamanrafael Madera NPIMG BI PROCEDURESFinal Result documented in this encounter Visit Diagnoses Diagnosis Encounter for breast cancer screening using non-mammogram modality documented in this encounter Additional Health Concerns AssessmentNoted TimePHQ-9 Depression Total Score: 9:00 AM EDT documented as of this encounter Care Teams Team MemberRelationshipSpecialtyStart DateEnd Date Radha Rajan NP PCP - [employer]06/02/21 Leopoldo Wayne MD [address] [place] [address] PCP - GeneralFamily Medicine02/21/25documented as of this encounter
[2025-05-17 09:49] VITALS: BP 149/92; PULSE 85; TEMP 37.1; O2SAT 94; BMI 44.9
--- OUTSIDE RECORDS SUMMARY | 2025-05-17 10:16 | XMS_ITS | Encounter Summary ---
Author Organization [facility] Address [address] [facility] [place] [address] Care Team Providers Care Carpenter Railcar Name Role Phone Radha Rajan CHIEF DISPATCHER Unavailable [phone] Leopoldo Wayne MD Primary Care Provider [phone] Encounter Details DateTypeDepartmentCare Team (Latest Contact Info)Nbhmawovggm90/10/2025Refill [facility] [address] [place] [phone] Leopoldo Wayne MD [address], [place] [phone] Rhinitis, unspecified type Social History Tobacco UseTypesPacks/DayYears UsedDateSmoking Tobacco: NeverSmokeless [...] times a week02/07/2023How often do you attend hinduism or protestant services?1 to 4 times per year02/07/2023 Do you belong to any clubs or organizations such as hinduism groups, unions, fraHornet Networks or athletic groups, or school groups?No02/07/2023How often do you attend meetings of the clubs or organizations you belong to?Never02/07/2023re you , , , , never , or living with a partner?Fmykmdv0502/07/2023UDIT-CAnswerDate RecordedQ1: How often do you have a [...] heating?Not hard at all02/07/2023HQ-2AnswerDate RecordedPatient Health Questionnaire-2 [id number] [place] of Occupational Health - Occupational Stress QuestionnaireAnswerDate RecordedDo you feel stress - tense, restless, nervous, or anxious, or unable to sleep at night because yourmind is troubled all the time - these days?To some ibvebc4702/07/2023Exercise Vital Sign AnswerDate RecordedOn average, how many [...] steady place to sleep or slept in [facility] [place] (including now)?No02/07/2023CommentsUnknown Sex and Gender InformationValueDate RecordedSex Assigned at BirthFemale 11/01/2022 9:13 AM EDTLegal SmfMleikv03/15/2023 7:33 PM EDTGender IdentityFemale 11/01/2022 9:13 AM EDTSexual OrientationNot on filedocumented as of this encounter Plan of Treatment DateTypeDepartmentCare Team (Latest Contact Info)Wemmknjehir68/02/2026 11:00 AM ESTOffice Visit [facility] [address] [place] [phone] Tatum Madera NP [address] [place] [address] documented as of this encounter Visit Diagnoses Diagnosis Rhinitis, unspecified type documented in this encounter Additional Health Concerns AssessmentNoted TimePHQ-9 Depression Total Score: 9:00 AM EDT documented as of this encounter Care Teams Team MemberRelationshipSpecialtyStart DateEnd Date Radha Rajan NP PCP - [employer]06/02/21 Leopoldo Wayne MD [address] [place] [address] PCP - GeneralFamily Medicine02/21/25documented as of this encounter
--- OUTSIDE RECORDS SUMMARY | 2025-05-17 10:16 | XMS_ITS | Clinical Summary ---
Author Organization [facility] Address [address] [place] [address] Care Team Providers Care Menu Planner Name Role Phone Radha Rajan GUEST ATTENDANT Unavailable [phone] Leopoldo Wayne MD Primary Care Provider [phone] Allergies Active AllergyReactionsCriticalityNoted DateCommentsDuloxetineGI intolerance 2Duloxetine Hcl09/27/2022 Other Reaction(s): nausea, dry heaves, headache Kbfttgfseb84/28/2017 Other Reaction(s): jittery Other Reaction(s): Other (See Comments), Other: See Comments Makes patient jitter jittery Girlterppt54/28/2023 Other Reaction(s): cough Dmfktcwhrq57/28/2023 Other Reaction(s): Itching / Stomach Pain Hydrocodone-QhclduzfhttukTlbbm54/21/2023 Jittery/restless Sulfamethoxazole-EmkxoaijefyqCvspIbs35/28/2023 Medications MedicationSigDispense QuantityRefillsLast FilledStart DateEnd DateStatus Cyanocobalamin (VITAMIN B-12 PO) Take 1 tablet by mouth 1 (one) time each day.Active cholecalciferol (D3-5) 5,000 Units tablet 1 (one) time each day at the same time.Active calcium carbonate 1500 (600 Ca) MG tablet every 12 (twelve) hours.Active fexofenadine (Leah Allergy) 180 MG tablet 1 (one) time each day at the same time.Active Multiple Vitamins-Minerals (Multivitamin Women) tablet 1 (one) time each day at the same time.Active hydroCHLOROthiazide (HYDRODiuril) 25 MG tablet Indications:Hypertension, unspecified typeTAKE 1 TABLET BY MOUTH IN THE MORNING 90 tablet 310/4Active nortriptyline (Pamelor) 25 MG capsule Indications:Carpal tunnel syndrome of left wristTAKE 1 CAPSULE BY MOUTH AT BEDTIME. 90 capsule 4Active atorvastatin (Lipitor) 10 MG tablet Indications:Mixed hyperlipidemiaTake 1 tablet (10 mg) by mouth 1 (one) time each day at the same time 90 tablet 4Active [facility] B-1 100 MG tablet Indications:Bilateral carpal tunnel syndromeTAKE 1 TABLET BY MOUTH EVERY DAY 90 tablet 5Active baclofen (Lioresal) 10 MG tablet Indications:Other chronic painTake 1 tablet (10 mg) by mouth as needed at bedtime for muscle spasms 90 tablet 5Active ondansetron ODT (Zofran-ODT) 4 MG disintegrating tablet 5Active esomeprazole (NexIUM) [address] capsule Indications:Gastroesophageal reflux disease, unspecified whether esophagitis presentTAKE 1 CAPSULE BY MOUTH EVERY DAY 90 capsule 5Active losartan (Cozaar) 25 MG tablet Indications:Hypertension, unspecified typeTake 1 tablet (25 mg) by mouth Daily 90 tablet 3075Active traMADol (Ultram) 50 MG tablet Indications:Other chronic pain,Other spondylosis with radiculopathy, lumbar region,Right hip painTake 1 tablet (50 mg) by mouth every 6 (six) hours if needed for severe pain 120 tablet /5Active nortriptyline (Pamelor) 10 MG capsule Indications:Bilateral carpal tunnel syndromeTAKE 1 CAPSULE BY MOUTH EVERYDAY AT BEDTIME 90 capsule 5Active montelukast (Singulair) 10 MG tablet Indications:Rhinitis, unspecified typeTake 1 tablet (10 mg) by mouth in the morning. 90 tablet 5Active pregabalin (Lyrica) 100 MG capsule Indications:Paresthesia of skinTake 1 capsule (100 mg) by mouth Daily 30 capsule 5Active OXcarbazepine (Trileptal) 150 MG tablet Indications:Other spondylosis with radiculopathy, lumbar region,Bilateral carpal tunnel syndromeTake 1 tablet (150 mg) by mouth at bedtime 30 tablet 11115/133548/6Active montelukast (Singulair) 10 MG tablet Indications:Rhinitis, unspecified typeTAKE 1 TABLET BY MOUTH IN THE MORNING 90 tablet /20230602/Discontinued(Reorder) OXcarbazepine (Trileptal) 150 MG tablet Take 150 mg by mouth at ksppqzz5205/14/2025Discontinued(Reorder) traMADol (Ultram) 50 MG tablet Indications:Other chronic pain,Other spondylosis with radiculopathy, lumbar region,Right hip painTake 1 tablet (50 mg) by mouth every 6 (six) hours if needed for severe pain 120 tablet Discontinued(Reorder) pregabalin (Lyrica) 100 MG capsule Indications:Paresthesia of skinTake 1 capsule (100 mg) by mouth Daily 30 capsule Discontinued(Reorder) Active Problems ProblemNoted DateDiagnosed FcbhPpmcny67/19/2025scending aorta dilation 09/03/2024ilateral carpal tunnel eycikyed00/15/2024ortic valve stenosis 09/27/2022Ventricular hypertrophy determined by rkrduudcsefobpba57/28/2023 Chronic pain09/27/2022ifficulty iexmrnb6909/27/20222012Xgpugcxpwgcrzd84/28/2023ait dkcjyxacdgy07/28/2023astroesophageal reflux ihwinrh3409/27/2022Hyperlipidemia 09/27/2022Impaired fasting blpmywp9209/27/20225356Ywvnuskjsepb63/28/2023Moderate gwoqmtaja51/28/2023Morbid qyyxkmk0209/27/20225128Hsgkdhgnny55/28/2023Other spondylosis with radiculopathy, lumbar lxraox5009/27/2022aresthesia of skin09/27/2022rimary localized osteoarthrosis of shoulder gxttgq5901/04/20220581Kvzqigfsqmjj19/10/2022 Cardiac uiwpzccbysf75/10/2022therosclerosis of aorta06/19/2020ulmonary fibrosis, skyueeiimtp97/18/2021ge related yhtamzuojfql71/11/2019Body mass index (BMI) 50.0-59.9, adult07/08/2018Uterovaginal gecsalkj64/05/2018Mild episode of recurrent major depressive amjgbcor86/07/2018Mixed tobfeycurebwrr00/07/2018 Essential napctubcgokp17/07/2018 Resolved Problems ProblemNoted DateDiagnosed DateResolved DateCarpal tunnel syndrome on left /arpal tunnel syndrome of left wrist Numbness of left handDisorderMajor depressive disorder, single episode, yvzyixdukhi16ain in left kneeRhinitisRight hip pain09/27/2022 03/02/2025History of stroke without residual znbjunsn96 Impaired htjnbzjva28Moderate episode of recurrent major depressive dvxknjxg13Hyperglycemia due to type 2 diabetes zcmbogyz14ellulitis of niyxyvzug56S/P laparoscopic qvmolcocbleahtd02iliary wsnijuhfgq58/22/2019 4Calculus of gallbladder without cholecystitis without obstruction Simple chronic zwgwuspngd26Polyneuropathy due to type 2 diabetes bvcyabxh92 Encounters DateTypeDepartmentCare IzryVnfzlbdqeib24/13/2025Refill [facility] [address] [place] [phone] Leopoldo Wayne MD Bilateral carpal tunnel syndrome (Primary Dx); Other spondylosis with radiculopathy, lumbar czlbuv5605/13/2025 11:30 AM EST Ancillary Procedure [facility] [address] [facility] [address] [place] [address] Encounter for breast cancer screening using non-mammogram sydyzilo52/12/2025 Xzdquq9605/11/2025Refill [facility] [address] [place] [address] Leopoldo Wayne MD Rhinitis, unspecified type04/29/2025Refill [facility] [address] [place] [address] Tatum Madera NP Paresthesia of skin04/27/2025Refill [facility] [address] [place] [address] Leopoldo Wayne MD Rhinitis, unspecified type04/26/2025Refill [facility] [address] [place] [address] David Laurent MD Bilateral carpal tunnel syndrome (Primary Dx)04/20/2025Refill [facility] [address] [place] [address] Tatum Madera NP Other chronic pain; Other spondylosis with radiculopathy, lumbar region; Right hip pain03/30/2025Refill [facility] [address] [place] [address] Tatum Madera NP Paresthesia of skin03/22/2025Refill [facility] [address] [place] [address] Tatum Madera NP Other chronic pain; Other spondylosis with radiculopathy, lumbar region; Right hip pain03/10/2025 10:00 AM EDTClinical Support [facility] [address] [place] [address] David Laurent MD Bilateral carpal tunnel syndrome (Primary Dx)03/10/2025amboo flowsheet [facility] [address] [place] [address] David Laurent MD 03/10/20257218Zrpalb84/01/2025 9:00 AM EDTOffice Visit [facility] [address] [place] [address] Tatum Madera NP Encounter for Medicare annual wellness exam (Primary Dx); Other spondylosis with radiculopathy, lumbar region; Other chronic pain; Pulmonary fibrosis, unspecified (HCC); Ventricular hypertrophy determined by echocardiography; Murmur; Essential hypertension; Cardiac hypertrophy; Atherosclerosis of aorta; Ascending aorta dilation; Aortic valve stenosis, etiology of cardiac valve disease unspecified; Gastroesophageal reflux disease, unspecified whether esophagitis present; Diverticulosis; Uterovaginal prolapse; Primary localized osteoarthrosis of shoulder region, unspecified laterality; Osteopenia, unspecified location; Moderate scoliosis; Age related osteoporosis, unspecified pathological fracture presence; Morbid obesity ([facility]); Impaired fasting glucose; Body mass index (BMI) 50.0-59.9, adult ([facility]); Leukocytosis, unspecified type; Mixed hyperlipidemia; Mild episode of recurrent major depressive disorder; Hyperlipidemia, unspecified hyperlipidemia type; Gait disturbance; Dyslipidemia; Difficulty walking; Bilateral carpal tunnel syndrome; Paresthesia of skin; Lymphedema; Encounter for breast cancer screening using non-mammogram modality; Encounter for mlsawmqdilax85/01/2025Orders Only [facility] [address] [place] [address] Tatum Madera NP Snxjohqfge67/01/2025amboo flowsheet [facility] [address] [place] [address] Tatum Madera NP 03/02/20258861Zcuxkq47/29/2025Refill [facility] [address] [place] [address] Tatum Madera NP Paresthesia of skin02/18/2025Refill [facility] [address] [place] [address] Tatum Madera, WADE Other chronic pain; Other spondylosis with radiculopathy, lumbar region; Right hip painfrom Last 3 Months Immunizations ImmunizationAdministration DatesNext DueInfluenza Whole03/20/2009Influenza, High Dose Seasonal, Preservative Free03/02/2025,2024,03/14/2019,04/01/2018, 01/24/2017Influenza, High-dose Seasonal, Quadrivalent, Preservative Free 03/07/2023,02/20/2022,03/09/2021Influenza, Injectable, MDCK, preservative free 03/02/2015Influenza, injectable, tqszavanbnhx08/12/2020,05/05/2018Influenza, injectable, quadrivalent, preservative free03/01/2020,03/14/2019,04/01/2018, 01/31/2017,03/25/2016Influenza, seasonal, bwybkagxri13/19/2015,03/20/2014, 02/12/2012,03/18/2011,03/14/2010Influenza, seasonal, injectable, preservative free03/02/2015Pfizer Purple Cap SARS-CoV-2 Kurtnkpogot38/03/2021Pneumococcal Conjugate PCV 13107/17/2015Pneumococcal Polysaccharide JAOH2603Tdap 05/16/2016Zoster, Bsegeqcktsm03,03/30/2019 Family History Medical HistoryRelationNameCommentsDementiaFatherNorbert CassidyHypertension MotherRuth CassidyStrokeMotherRuth CassidyRelationNameStatusCommentsFather Elmo CassidyDeceasedMotherRuth CassidyDeceasedOtherFamily history of diabetes, heart disease Social History Tobacco UseTypesPacks/DayYears UsedDateSmoking Tobacco: NeverSmokeless Tobacco: Never Tobacco Cessation:Counseling Given: Not Answered Alcohol UseStandard Drinks/WeekCommentsNot Currently0 (1 standard drink = [...] times a week02/07/2023How often do you attend restorationist or tenriism services?1 to 4 times per year02/07/2023 Do you belong to any clubs or organizations such as restorationist groups, unions, fraternal or athletic groups, or school groups?No02/07/2023How often do you attend meetings of the clubs or organizations you belong to?Never02/07/2023re you , , , , never , or living with a partner?Kjirwya7202/07/2023UDIT-CAnswerDate RecordedQ1: How often do you have a [...] heating?Not hard at all02/07/2023HQ-2AnswerDate RecordedPatient Health Questionnaire-2 Wsfxz496[facility] [place] [facility] - Occupational Stress QuestionnaireAnswerDate RecordedDo you feel stress - tense, restless, nervous, or anxious, or unable to sleep at night because yourmind is troubled all the time - these days?To some uwehvo5402/07/2023Exercise Vital Sign AnswerDate RecordedOn average, how many [...] steady place to sleep or slept in [facility] (including now)?No02/07/2023CommentsUnknown Sex and Gender InformationValueDate RecordedSex Assigned at BirthFemale 11/01/2022 9:13 AM EDTLegal RqiIgysee79/15/2023 7:33 PM EDTGender IdentityFemale 11/01/2022 9:13 AM EDTSexual OrientationNot on file Last Filed Vital Signs Vital SignReadingTime TakenCommentsBlood Atttojxi330/8210 9:32 AM EDT Rgeek239403/02/2025 9:03 AM DOOYmvwavdgukt70.4 ??C (97.6 ??F)03/02/2025 9:03 AM EDTRespiratory Rate--Oxygen Jyvlsmwzja92%03/02/2025 9:03 AM EDTInhaled Oxygen Concentration--Esiyaj290 kg (232 lb)03/02/2025 9:03 AM GSTMrrfhz032.8 cm (4' 9 ) 03/02/2025 9:03 AM EDTBody Mass Index50. 9:03 AM EDT Plan of Treatment DateTypeDepartmentCare Team (Latest Contact Info)Nppzlefvbip57/02/2026 11:00 AM ESTOffice Visit [facility] [address] [place] [address] Tatum Madera NP [address] [place] [address] Health MaintenanceDue DateLast DoneCommentsCT Uvkipbvitvjm1951FIT-DNA 1950FIT1950FOBT1950 6567Jgftdvlmfygcu1951OVID-19 Vaccine ( season), 04/04/2021, 08/31/2020, Additional history existsPneumococcal Vaccine: 65+ Years (3 of 3 - PCV20 or PCV21) , 09/01/2014Postponed from 05/16/2021 (Patient Refused) Ulzkkmomnjf25Colorectal Cancer Ajbwqcimi21/05/2026Mammogram , 04/14/2024, 03/20/2023, Additional history existsInfluenza ZsmxwnnCpizuuskq53/01/2025, 2024, 03/07/2023, Additional history exists Procedures Procedure NamePriorityDate/TimeAssociated DiagnosisCommentsBI MAMMOGRAM SCREENING TOMOSYNTHESIS FZXZSEUIIVjavuht28/12/2025 11:56 AM EST Encounter for breast cancer screening using non-mammogram modality ERABOXFGJAVPqjgwpc79/05/2016 12:00 PM EST from Last 3 Months or Most Recently Relevant to Health Maintenance Results * Bilateral screening mammogram with tomosynthesis [...] IS VERY IMPORTANT TO YOUR HEALTH. ??THE [employer] GUIDELINES RECOMMEND THAT WOMEN 40 [...] IS VERY IMPORTANT TO YOUR HEALTH. THE [employer] GUIDELINES RECOMMEND THAT WOMEN 40 YEARS OF AGE AND OLDER SHOULD HAVE AMAMMOGRAM EVERY YEAR. A REMINDER LETTER WILL BE SENT AT THE APPROPRIATE TIME. ELECTRONICALLY SIGNED BY: Jamil Qiu M.D. Authorizing ProviderResult TypeResult StatusSabrendan Madera NPIMG BI PROCEDURESFinal Result * Colonoscopy (05/06/2016 12:00 PM EST)Anatomical RegionLateralityModality EndoscopySpecimen (Source)Anatomical Location / LateralityCollection Method / VolumeCollection TimeReceived Time05/06/2016 12:00 PM EST Narrative 05/06/2016 12:00 PM EST PERFORMED AT [facility] LOCATION:[id number] Normal Procedure Note CONVERSION, GENERIC - 10/17/2022 PERFORMED AT [facility] LOCATION:[id number] Normal Authorizing ProviderResult TypeResult StatusYulia B Wonderly MDENDOSCOPY PROCEDURE ORDERABLESFinal Result from Last 3 Months or Most Recently Relevant to Health Maintenance Insurance Care Teams Team MemberRelationshipSpecialtyStart DateEnd Date Radha Rajan NP PCP - [employer]06/02/21 Leopoldo Wayne MD [address] [place] [address] PCP - [facility]02/21/25
--- OUTSIDE RECORDS SUMMARY | 2025-05-17 10:16 | XMS_ITS | Clinical Summary ---
Author Organization [employer] s tem Address [id number] [place] [address] Care Team Providers Care Emergency Response Coordinator Name Role Phone Yulia Moyer MD Primary Care Provider [phone] Allergies Active AllergyReactionsCriticalityNoted DateComments Sulfamethoxazole-UjcspbgzaevjAoxyAxb89/28/7197JdwipaemrkAhbrr86/25/2019 FluoxetineOther (See Comments)01/27/2017 jittery Medications MedicationSigDispense QuantityRefillsLast FilledStart DateEnd DateStatus montelukast (SINGULAIR) 10 mg tablet Take 10 mg by mouth nightly.Active esomeprazole (NexIUM) 40 mg capsule Take 20 mg by mouth every morning before breakfast.Active atorvastatin (LIPITOR) 10 mg tablet Take 10 mg by mouth daily.Active hydroCHLOROthiazide (HYDRODIURIL) 25 mg tablet Take 25 mg by mouth daily.Active fexofenadine (MARY) 180 mg tablet Take 180 mg by mouth daily.Active multivit with minerals/lutein (MULTIVITAMIN 50 PLUS ORAL) Take 1 tablet by mouth daily.Active calcium carbonate (CALCIUM 600 ORAL) Take 600 mg by mouth 2 (two) times a day.Active cholecalciferol, vitamin D3, 5,000 units tablet Take 5,000 Units by mouth daily.Active losartan (COZAAR) 25 mg tablet 1 tabletActive traMADoL (ULTRAM) 50 mg tablet 2 tabs prnActive gabapentin (NEURONTIN) 300 mg capsule Take 300 mg by mouth in the morning and 300 mg at noon and 300 mg before bedtime.Active Active Problems ProblemNoted DateDiagnosed DateCardiac qjxgsyhkmbt63/10/2022Aortic valve cuntubmc71/10/2327Rnncbikgiqiz31/10/0075Mdskmxjiztxp63/10/2022Cellulitis of thtkbyxdq10/19/2019S/P laparoscopic ohnsfzsyktzyjxo75/12/2019BMI 45.0-49.9, adult07/08/2018Calculus of gallbladder without cholecystitis without obstruction 06/23/2018Biliary vbnexkelfm99/22/2019 Encounters DateTypeDepartmentCare YymqAmayljmtbbl32/03/3109Mykxkd40/06/2025Travelfrom Last 3 Months Family History Medical HistoryRelationNameCommentsDiabetesFatherHeart attackFatherHeart disease FatherHypertensionMotherStrokeMotherNo Known ProblemsSisterRelationNameStatus CommentsFatherDeceased (Age 90)MotherDeceased (Age 78)SisterAlive Social History Tobacco UseTypesPacks/DayYears UsedDateSmoking Tobacco: NeverSmokeless Tobacco: NeverAlcohol UseStandard Drinks/WeekCommentsNo0 (1 standard drink = 0.6 oz pure alcohol)AUDIT-CAnswerDate RecordedFrequency of Alcohol ConsumptionNever 06/23/2018Average Number of DrinksNot on file06/23/2018Frequency of Binge DrinkingNot on file06/23/2018ChildcareAnswerDate RecordedChildcareUnknown 11/11/2018EmploymentAnswerDate TacwrlcyJtfczncucoVwmhwhg02/12/2019Purpose - Life AnswerDate RecordedPurpose and direction in uqeaTyerwcm66/11/2021 CommentsNoSex and Gender InformationValueDate RecordedSex Assigned at BirthNot on fileLegal IseVduclx35/06/2015 11:28 AM EDTGender IdentityNot on fileSexual OrientationNot on file Last Filed Vital Signs Vital SignReadingTime TakenCommentsBlood Vjybcjey844/7805 1:28 PM EDT Ddkiu630910/09/2021 1:28 PM ILTZzdtdnepoky35.5 ??C (97.7 ??F)07/08/2018 9:50 AM ESTRespiratory Gvxa775509/14/2021 8:38 PM EDTOxygen Mkpsemrxzj85%10/09/2021 1:28 PM EDTInhaled Oxygen Concentration--Myvfws554.1 kg (245 lb)10/09/2021 1:28 PM UYZIoklft651.4 cm (5')10/09/2021 1:28 PM EDTBody Mass Index47.85010/09/2021 1:28 PM EDT Plan of Treatment Health MaintenanceDue DateLast DoneCommentsDepression Dmwqreltj33/18/1963Tobacco Lpxthkdmt89/18/1963Adult BMI Oeaydwvqz89/18/1969Fall Risk Fbpvslnyx26/18/2016 COVID-19 Vaccine (2024- season)5107/16/2020, 04/04/2021, 08/31/2020, Additional history existsRSV ( or age 60+ yrs) (1 - 1-dose 75+ series)2026DTaP,Tdap and Td Vaccines (2 - Td or Tdap)05/16/2026 05/16/2016Zoster (Shingles) ZalanszIlznfcugr82/03/2020, 03/30/2019Influenza NlzptrbWbekjudvz13/01/2025, 2024, 03/07/2023, Additional history exists Medical Devices Not on file Insurance Care Teams Team MemberRelationshipSpecialtyStart DateEnd Yulia Moyer MD [address] [place] [address] PCP - GeneralFamily Medicine01/27/17
--- OUTSIDE RECORDS SUMMARY | 2025-05-17 10:16 | XMS_ITS | Clinical Summary ---
Author Organization [facility] Address [address] [place] [address] Care Team Providers Care Cash Office Worker Name Role Phone Mohini, Radha Paulette RAVELER Unavailable Unavailab le Allergies Active AllergyReactionsCriticalityNoted DateComments Sulfamethoxazole-JvjbsmdoakhpAmdl82/31/2022DuloxetineGI Upset04/01/2022 JfquwpridoAweut20/31/2022FluoxetineOther: See Hmpztquv48/31/2022 Makes patient jitter Medications MedicationSigDispense QuantityRefillsLast FilledStart DateEnd DateStatus mecobalamin (B12 ACTIVE ORAL) Take 1 capsule by mouth once daily.Active gabapentin (NEURONTIN) 300 mg/6 mL (6 mL) oral solution Take 300 mg by mouth.Active traMADol (ULTRAM) 50 mg tablet Take 50 mg by mouth every 6 hours as needed for pain.Active atorvastatin (LIPITOR) 10 mg tablet Take 10 mg by mouth once daily.Active losartan (COZAAR) 25 mg tablet Take 25 mg by mouth once daily.Active hydroCHLOROthiazide (HYDRODIURIL, ESIDRIX) 25 mg tablet Take 25 mg by mouth once daily.Active montelukast (SINGULAIR) 10 mg tablet Take 10 mg by mouth daily at bedtime.Active esomeprazole (NEXIUM) 20 mg capsule Take 20 mg by mouth once daily.Active Snytzaiecxwin-Xxcvbefi-Xayodc (MULTIVITAMIN 50 PLUS) tab Take 1 tablet by mouth once daily.Active fexofenadine (MARY) 180 mg tablet Take 180 mg by mouth once daily.Active calcium carbonate (CALCIUM 600) 600 mg calcium (1,500 mg) tab Take 600 mg by mouth twice daily.Active cholecalciferol, vitamin D3, (VITAMIN D3 ORAL) Take by mouth.Active Social History Tobacco UseTypesPacks/DayYears UsedDateSmoking Tobacco: Never AssessedPHQ-2 AnswerDate RecordedPHQ-2 yrzok270rea Deprivation IndexAnswerDate RecordedNational Score (1-100), lower number is lower mliy727506/15/2022State Score (1-10), lower number is lower riskNot on file3Data from: https://www.neighborhoodatlas.[facility].edu/. Last address used for puzpcqkniqz[address]06/15/2022CommentsUnknownSex and Gender InformationValueDate RecordedSex Assigned at BirthNot on fileLegal SexFemale 03/14/2022 9:41 PM EDTGender IdentityNot on fileSexual OrientationNot on file Last Filed Vital Signs Vital SignReadingTime TakenCommentsBlood Pressure--Pulse--Temperature-- Respiratory Rate--Oxygen Saturation--Inhaled Oxygen Concentration--Vbzmng790.9 kg (240 lb)04/01/2022 12:58 PM EDTself wtlnrtSmggdc211.4 cm (5')04/01/2022 12:58 PM EDTBody Mass Index46.8704/01/2022 12:58 PM EDT Plan of Treatment Health MaintenanceDue DateLast DoneCommentsAnxiety Ymlmvshwk60/18/1969Depression Kyhagaouf12/18/1969Hepatitis C Srhavkmjn33/18/1969DTaP,Tdap,Td Vaccine (1 - Tdap)1970Mammogram Igzjcwqap67/18/1991CT Puigqwayywvz65/18/1996Cologuard (FIT-DNA)02/18/19969427Qwbmktjtqvt50/18/1996Colorectal Cancer Qnechkyrd52/18/1996 Fecal Occult Blood02/18/1996Lipid Tidueuoqi92/18/8318Enfqrdkwegvue78/18/1996 Pneumococcal Vaccine: 50+ (2 of 2 - PCV)09/02/201504Bone Density Iskthvwux97/18/2016Advance Directive Gggbmrgdop94/01/2025Diabetes Screening 5009/14/2021, 06/26/2018Covid-19 Vaccine ( season)2025 05/15/2021, 04/04/2021, 08/31/2020, Additional history existsInfluenza Vaccine (#1)509/, 03/09/2021, 03/13/2020, Additional history existsRSV Vaccine (1 - 1-dose 75+ series)2026Shingrix AnyiyklBkemhbcvz98/03/2020, 03/30/2019 Insurance Care Teams Team MemberRelationshipSpecialtyStart DateEnd Date Radha Rajan CNP ReferringFamily Hwxktkcd29/13/22
--- OUTSIDE RECORDS SUMMARY | 2025-05-17 10:16 | XMS_ITS | Clinical Summary ---
Author Organization [facility] Address [address], [address] [place] [address] Care Team Providers Care Hot Mix Operator Name Role Phone Unavailable Primary Care Provider Unavailabl e Social History Tobacco UseTypesPacks/DayYears UsedDateSmoking Tobacco: Never Assessed CommentsUnknownSex and Gender InformationValueDate RecordedSex Assigned at Not on fileLegal HxxGjfsnd98/12/2025 10:16 AM ESTGender IdentityNot on file Sexual OrientationNot on file Plan of Treatment DateTypeDepartmentCare Team (Latest Contact Info)Lvvrrjeldgc32/21/2026 11:00 AM ESTOffice Visit [facility] [address] [place] [address] David Laurent MD [address] [place] [address] 3 mos fup Insurance
--- OUTSIDE RECORDS SUMMARY | 2025-05-17 10:16 | XMS_ITS | Encounter Summary ---
Author Organization [facility] Address [address] [facility] [place] [address] Care Team Providers Care Wallcovering Hanger Name Role Phone Radha Rajan HYDRAULIC TESTER Unavailable [phone] Leopoldo Wayne MD Primary Care Provider [phone] Reason for Visit * ReasonOnset DateCommentsMed Tpxvip2005/14/2025 Encounter Details DateTypeDepartmentCare Team (Latest Contact Info)Fwxthuykwdr17/13/2025Refill [facility] [address] [place] [phone] Leopoldo Wayne MD [address] [place], [place] [id number] Bilateral carpal tunnel syndrome (Primary Dx); Other spondylosis with radiculopathy, lumbar region Social History Tobacco UseTypesPacks/DayYears UsedDateSmoking Tobacco: NeverSmokeless [...] times a week02/07/2023How often do you attend evangelical or evangelical services?1 to 4 times per year02/07/2023 Do you belong to any clubs or organizations such as evangelical groups, unions, fraternal or athletic groups, or school groups?No02/07/2023How often do you attend meetings of the clubs or organizations you belong to?Never02/07/2023re you , , , , never , or living with a partner?Agjxstv6602/07/2023UDIT-CAnswerDate RecordedQ1: How often do you have a [...] heating?Not hard at all02/07/2023HQ-2AnswerDate RecordedPatient Health Questionnaire-2 [id number] [place] of Occupational Health - Occupational Stress QuestionnaireAnswerDate RecordedDo you feel stress - tense, restless, nervous, or anxious, or unable to sleep at night because yourmind is troubled all the time - these days?To some sctzgd5002/07/2023Exercise Vital Sign AnswerDate RecordedOn average, how many [...] steady place to sleep or slept in [facility] (including now)?No02/07/2023CommentsUnknown Sex and Gender InformationValueDate RecordedSex Assigned at BirthFemale 11/01/2022 9:13 AM EDTLegal IlpJrwiux84/15/2023 7:33 PM EDTGender IdentityFemale 11/01/2022 9:13 AM EDTSexual OrientationNot on filedocumented as of this encounter Plan of Treatment DateTypeDepartmentCare Team (Latest Contact Info)Opvvpjaautz84/02/2026 11:00 AM ESTOffice Visit [facility] [address] [place] [phone] Tatum Madera NP [address] [place], [place] [phone] documented as of this encounter Visit Diagnoses Diagnosis Bilateral carpal tunnel syndrome- Primary Carpal tunnel syndrome Other spondylosis with radiculopathy, lumbar region documented in this encounter Additional Health Concerns AssessmentNoted TimePHQ-9 Depression Total Score: 9:00 AM EDT documented as of this encounter Care Teams Team MemberRelationshipSpecialtyStart DateEnd Date Radha Rajan NP PCP - [employer]06/02/21 Leopoldo Wayne MD [address] [place] [address] PCP - GeneralFaflly Medicine02/21/25documented as of this encounter
--- OUTSIDE RECORDS SUMMARY | 2025-05-17 10:16 | XMS_ITS | Encounter Summary ---
Author Organization [facility] Address [address] [place] [address] Care Team Providers Care Brand Designer Name Role Phone Radha Rajan SALES SECRETARY Unavailable [phone] Leopoldo Wayne MD Primary Care Provider [phone] Encounter Details DateTypeDepartmentCare Team (Latest Contact Info)Qbdatfsaedn69/12/2025Travel Social History Tobacco UseTypesPacks/DayYears UsedDateSmoking Tobacco: NeverSmokeless [...] times a week02/07/2023How often do you attend spiritism or samaritan services?1 to 4 times per year02/07/2023 Do you belong to any clubs or organizations such as spiritism groups, unions, fraternal or athletic groups, or school groups?No02/07/2023How often do you attend meetings of the clubs or organizations you belong to?Never02/07/2023re you , , , , never , or living with a partner?Ellotrt0802/07/2023UDIT-CAnswerDate RecordedQ1: How often do you have a [...] heating?Not hard at all02/07/2023HQ-2AnswerDate RecordedPatient Health Questionnaire-2 [id number] [place] of Occupational Health - Occupational Stress QuestionnaireAnswerDate RecordedDo you feel stress - tense, restless, nervous, or anxious, or unable to sleep at night because yourmind is troubled all the time - these days?To some stanyz0802/07/2023Exercise Vital Sign AnswerDate RecordedOn average, how many [...] Assigned at BirthFemale 11/01/2022 9:13 AM EDTLegal HniExhoyr06/15/2023 7:33 PM EDTGender IdentityFemale 11/01/2022 9:13 AM EDTSexual OrientationNot on filedocumented as of this encounter Plan of Treatment DateTypeDepartmentCare Team (Latest Contact Info)Cukwblwpweh67/02/2026 11:00 AM ESTOffice Visit [facility] [address] [place] [address] Tatum Madera NP [address] [place] [address] documented as of this encounter Visit Diagnoses Not on filedocumented in this encounter Additional Health Concerns AssessmentNoted TimePHQ-9 Depression Total Score: 9:00 AM EDT documented as of this encounter Care Teams Team MemberRelationshipSpecialtyStart DateEnd Date Radha Rajan NP PCP - [employer]06/02/21 Leopoldo Wayne MD [address] [place], [place] [phone] PCP - GeneralFamily Medicine02/21/25documented as of this encounter
--- NOTE | 2025-05-17 10:24 | ED.GENADUL1 ---
HPI HPI - General Adult General Chief complaint: Extremity Injury, Upper Stated complaint: FINGER PAIN Time Seen by Provider: 05/17/25 10:13 Source: patient Mode of arrival: Wheelchair History of Present Illness HPI narrative: The patient presented to the ER with a left middle finger redness that she noticed over the last few days, although almost a couple weeks ago she had another injury when she hit her left middle finger with a drawer at home She mentioned that she had developed swelling that is chronic since then but she noted the redness today and that why she came to the ER No fever no chills no other concerns Related Data Home Medications ?Medication ?Instructions ?Recorded ?Confirmed atorvastatin 10 mg tablet 10 mg PO DAILY 08/24/24 05/17/25 baclofen 10 mg tablet 10 mg PO BEDTIME 08/24/24 05/17/25 cholecalciferol (vitamin D3) 125 125 mcg PO DAILY 08/24/24 05/17/25 mcg (5,000 unit) capsule esomeprazole magnesium 20 mg 20 mg PO Q24H 08/24/24 05/17/25 capsule,delayed release hydrochlorothiazide 25 mg tablet 25 mg PO DAILY 08/24/24 05/17/25 losartan 25 mg tablet 25 mg PO DAILY 08/24/24 05/17/25 montelukast 10 mg tablet 10 mg PO DAILY 08/24/24 05/17/25 oxcarbazepine 150 mg tablet 150 mg PO BID 08/24/24 05/17/25 pregabalin 100 mg capsule 100 mg PO DAILY 08/24/24 05/17/25 thiamine HCl (vitamin B1) 100 mg 100 mg PO DAILY 08/24/24 05/17/25 tablet tramadol 50 mg tablet 50 mg PO Q6H PRN pain 08/24/24 05/17/25 ondansetron 4 mg disintegrating 4 mg PO Q6H PRN nausea and vomiting 08/26/24 05/17/25 tablet cyanocobalamin (vitamin B-12) DAILY 05/17/25 Previous Rx's ?Medication ?Instructions ?Recorded albuterol sulfate 90 mcg/actuation 2 inh inhalation Q6H PRN shortness 08/24/24 aerosol inhaler of breath or wheezing #8.5 grams cephalexin 500 mg capsule 500 mg PO Q8H 7 days #21 caps 05/17/25 doxycycline hyclate 100 mg tablet 100 mg PO BID 7 days #14 tabs 05/17/25 Allergies Allergy/AdvReac Type Severity Reaction Status Date / Time duloxetine AdvReac Mild Nausea Verified 05/17/25 09:57 fluoxetine AdvReac Mild jittery Verified 05/17/25 09:57 hydrocodone AdvReac Mild Rash Verified 05/17/25 09:57 lisinopril AdvReac Mild Cough Verified 05/17/25 09:57 nabumetone AdvReac Mild itching Verified 05/17/25 09:57 Sulfa (Sulfonamide AdvReac Mild Rash Verified 05/17/25 09:57 Antibiotics) Opioid HPI Opioid Management Most Recent Opioid Data: Last Pain Scale 5 08/29/24, 11:00 Last ORT Total Score 0 08/26/24, 13:16 Last ORT Risk Category Low Risk 08/26/24, 13:16 Review of Systems ROS Status of ROS 10 or more systems reviewed and unremarkable except as noted in history and below [facility] Medical History (Updated 05/17/25 @ 10:25 by Sonal Olmos MD) Aortic stenosis, mild ?I35.0 - Nonrheumatic aortic (valve) stenosis (ICD-10) Elevated brain natriuretic peptide (BNP) level ?R79.89 - Other specified abnormal findings of blood chemistry (ICD-10) Obesity, Class III, BMI 40-49.9 (morbid obesity) ?E66.01 - Morbid (severe) obesity due to excess calories (ICD-10) Influenza A ?J10.1 - Influenza due to other identified influenza virus with other respiratory manifestations (ICD-10) Hypertension ?I10 - Essential (primary) hypertension (ICD-10) Pneumonia ?J18.9 - Pneumonia, unspecified organism (ICD-10) Prediabetes ?R73.03 - Prediabetes (ICD-10) Influenza ?J11.1 - Influenza due to unidentified influenza virus with other respiratory manifestations (ICD-10) Dyspnea ?R06.00 - Dyspnea, unspecified (ICD-10) High cholesterol ?E78.00 - Pure hypercholesterolemia, unspecified (ICD-10) Spinal stenosis ?M48.00 - Spinal stenosis, site unspecified (ICD-10) Surgical History (Updated 08/26/24 @ 11:42 by Karen Reaves RN) History of hip surgery ?Z98.890 - Other specified postprocedural states (ICD-10) Social History Highest level of school completed/degree received: Associate degree: academic program Little interest or pleasure in doing things: not at all Feeling down, depressed, or hopeless: not at all Exam Narrative Exam Narrative: Nurses notes and vital signs reviewed and patient is not hypoxic. General: Well-appearing and in no apparent distress. Left hand examination: The patient left hand examination shows no vascular injury and normal capillary fill. It was noted that the patient middle finger is swollen and there is redness mostly limited to the distal phalanx but there is some mild redness growing into the hand dorsum. The patient have a scarring at the tip of the finger just below the nailbed which mostly secondary to the contusion that she had couple weeks ago. No fluctuation no open wound no crepitus or air under the skin . There is mild warmth and no tenderness that is significant with a full range of movement Psychiatric: Cooperative and interactive. Normal mood and affect. Constitutional Vital Signs, click to edit/add: Last Vital Signs Temp 98.7 F 05/17/25 09:49 Pulse 85 05/17/25 09:49 Resp 18 05/17/25 09:49 BP 149/92 H 05/17/25 09:49 Pulse Ox 94 L 05/17/25 09:49 O2 Del Method Room Air 05/17/25 09:49 Course Vital Signs Vital signs: Vital Signs Temperature 98.7 F 05/17/25 09:49 Pulse Rate 85 05/17/25 09:49 Respiratory Rate 18 05/17/25 09:49 Blood Pressure 149/92 H 05/17/25 09:49 Pulse Oximetry 94 L 05/17/25 09:49 Oxygen Delivery Method Room Air 05/17/25 09:49 Temperature 98.7 F 05/17/25 09:49 Pulse Rate 85 05/17/25 09:49 Respiratory Rate 18 05/17/25 09:49 Blood Pressure 149/92 H 05/17/25 09:49 Pulse Oximetry 94 L 05/17/25 09:49 Oxygen Delivery Method Room Air 05/17/25 09:49 Medical Decision Making MDM Narrative Medical decision making narrative: The patient presentation is most concerning for cellulitis that he started on a baseline chronic swelling after she had contusion few weeks ago, right now there is no abscess but the patient was instructed about the importance of monitoring symptoms I had her redness marked and I started an antibiotic Keflex and doxycycline With instruction that she need to be evaluated by her primary care within few days in addition to also in case of the redness crossing the marking the patient to come to the ER in case of fever chills or any systemic symptoms of infection which the patient does not have any of right now Patient to come back to the ER The patient to follow-up with the primary care within 2 to 3 days and to come back to the ER in case of any worsening of the current symptoms or any new symptoms or concerns Discharge Plan Discharge Chief Complaint: Extremity Injury, Upper Clinical Impression: Cellulitis of hand Patient Disposition: Home, Self-Care Time of Disposition Decision: 10:25 Condition: Good Prescriptions / Home Meds: New cephalexin 500 mg capsule 500 mg PO Q8H 7 Days Qty: 21 0RF doxycycline hyclate 100 mg tablet 100 mg PO BID 7 Days Qty: 14 0RF No Action atorvastatin 10 mg tablet 10 mg PO DAILY baclofen 10 mg tablet 10 mg PO BEDTIME cholecalciferol (vitamin D3) 125 mcg (5,000 unit) capsule 125 mcg PO DAILY esomeprazole magnesium 20 mg capsule,delayed release(DR/EC) 20 mg PO Q24H hydrochlorothiazide 25 mg tablet 25 mg PO DAILY losartan 25 mg tablet 25 mg PO DAILY montelukast 10 mg tablet 10 mg PO DAILY oxcarbazepine 150 mg tablet 150 mg PO BID pregabalin 100 mg capsule 100 mg PO DAILY tramadol 50 mg tablet 50 mg PO Q6H PRN (Reason: pain) thiamine HCl (vitamin B1) 100 mg tablet 100 mg PO DAILY albuterol sulfate 90 mcg/actuation HFA aerosol inhaler 2 inh inhalation Q6H PRN (Reason: shortness of breath or wheezing) Qty: 8.5 0RF ondansetron 4 mg tablet,disintegrating 4 mg PO Q6H PRN (Reason: nausea and vomiting) cyanocobalamin (vitamin B-12) DAILY Print Language: St Helen[place] Instructions: Cellulitis (ED) Additional Instructions: Please make sure that you come back to the ER in case of any worsening and also follow-up with your primary care within few days for evaluation Referrals: JOSEPH KIM [Primary Care Provider, Family Practice] - 1 week Discharge Date/Time: 05/17/25 11:18
[2025-05-17] MEDS: CEPHALEXIN 500 MG CAPSULE PO (11:11)
[2025-05-17] MEDS: DOXYCYCLINE MONOHYDRATE 100 MG CAPSULE PO (11:11)
== END 2025-05-17 11:18 | disposition home or self-care (01) ==
PROVIDERS: Emergency Provider Emergency Medicine; PCP Family Medicine
DX: L03.114 Cellulitis of left upper limb (principal)
CPT/HCPCS: 99283